=== PATIENT | female | born 1965 | race Caucasian/White ===

== ENCOUNTER → 2019-09-04 00:01 | Outpatient (RCR) | payer BC, SELFPAY | LOC: ONCMED 08-06 06:18 | PROVIDERS: Family Provider Family Medicine; Visit Provider Internal Medicine Medical Oncology | DX: Z51.12 Encounter for antineoplastic immunotherapy (principal); Z51.11 Encounter for antineoplastic chemotherapy; C50.812 Malignant neoplasm of overlapping sites of left female breast; D70.1 Agranulocytosis secondary to cancer chemotherapy; T45.1X5A Adverse effect of antineoplastic and immunosuppressive drugs, initial encounter; I10 Essential (primary) hypertension; E11.42 Type 2 diabetes mellitus with diabetic polyneuropathy; K21.9 Gastro-esophageal reflux disease without esophagitis; E03.9 Hypothyroidism, unspecified; Z79.891 Long term (current) use of opiate analgesic; Z79.4 Long term (current) use of insulin; Z87.891 Personal history of nicotine dependence | CPT/HCPCS: 36415; 36591; 80053 ×2; 85007; 85025 ×5; 96360 ×5; 96367 ×2; 96372 ×2; 96413 ×2; 96417 ×2; 99214 ×2; J1100 ×2; J1453 ×2; J1642 ×9; J1815; J2469 ×2; J2505; J3490 ×2; J7040 ×2; J7050 ×9; J9045 ×2; J9171 ×2; J9306 ×2; J9355 ×2 ==

== ENCOUNTER 2019-10-05 05:45 | Outpatient (RCR) | payer BC, SELFPAY ==
[2019-09-06] MEDS: sodium chloride 0.9% 1,000 ML 999 ML IV (09:02)
[2019-09-07] MEDS: sodium chloride 0.9% 1,000 ML 999 ML IV (09:09)
[2019-09-10] MEDS: sodium chloride 0.9% 1,000 ML 999 ML IV (08:30)
[2019-09-10 08:48] LABS: Basophils # 0.1 10^3/uL (0.0-0.1); Basophils % 2.8 %; Eosinophils % 0.5 %; Hematocrit 36.5 % (37.0-47.0); Hemoglobin 12.2 g/dL (11.5-15.3); Lymphocytes % 47.6 %; Mean Corpuscular HGB Conc 33.4 g/dL (30.0-36.0); Mean Corpuscular Hemoglobin 35.2 pg (28.0-34.0); Mean Corpuscular Volume 105.2 fL (81-99); Mean Platelet Volume 10.8 fL (7.4-10.4); Monocytes # 0.1 10^3/uL (0.2-0.9); Monocytes % 2.4 %; Neutrophils # 0.9 10^3/uL (1.8-7.7); Nucleated Red Blood Cells % 0 %; Platelet Count 214 10^3/cmm (130-400); Red Blood Count 3.47 10^6/uL (4.1-5.3); Red Cell Distribution Width 15.8 % (12.1-15.1); White Blood Count 2.1 10^3/uL (4.0-10.0)
[2019-09-10 09:07] LABS: Alanine Aminotransferase 44 U/L (0-33); Albumin Level 4.5 g/dL (3.5-5.2); Alkaline Phosphatase 103 IU/L (35-105); Anion Gap 18.2 (5-19); Aspartate Amino Transferase 29 U/L (0-32); Blood Urea Nitrogen 12 mg/dL (6-20); Calcium 9.5 mg/Dl (8.6-10.0); Carbon Dioxide 22 mmol/L (22-29); Chloride 97 mmol/L (98-107); Globulin 1.4 g/dL (1.3-4.6); Glomerular Filtration Rate 127.6 mL/min (90-130); Glucose 255 mg/dL (74-109); Potassium 4.2 mmol/L (3.5-5.1); Sodium 133 mmol/L (136-145); Total Bilirubin 0.6 mg/dL (0.15-1.2); Total Protein 5.9 g/dL (6.6-8.7)
[2019-09-10 11:13] LABS: Thyroid Stimulating Hormone 3.19 uIU/mL (0.27-4.20); Vitamin B12 699 pg/mL (232-1245)
[2019-09-12 11:51] LABS: Basophils % 0.8 %; Hematocrit 33.5 % (37.0-47.0); Hemoglobin 11.2 g/dL (11.5-15.3); Lymphocytes # 1.6 10^3/uL (0.8-4.8); Lymphocytes % 65.1 %; Mean Corpuscular HGB Conc 33.4 g/dL (30.0-36.0); Mean Corpuscular Volume 104.7 fL (81-99); Mean Platelet Volume 10.4 fL (7.4-10.4); Monocytes # 0.7 10^3/uL (0.2-0.9); Neutrophils % 7.1 %; Nucleated Red Blood Cells % 0 %; Platelet Count 183 10^3/cmm (130-400); Red Cell Distribution Width 15.5 % (12.1-15.1); White Blood Count 2.5 10^3/uL (4.0-10.0)
[2019-09-12 12:39] LABS: Neutrophils # 0.2 10^3/uL (1.8-7.7); Slide Review Slide Review Perform
[2019-09-14 08:48] LABS: Basophils # 0.2 10^3/uL (0.0-0.1); Basophils % 0.7 %; Hematocrit 34.8 % (37.0-47.0); Hemoglobin 11.5 g/dL (11.5-15.3); Lymphocytes # 4.3 10^3/uL (0.8-4.8); Lymphocytes % 18.3 %; Mean Corpuscular Hemoglobin 35.3 pg (28.0-34.0); Mean Corpuscular Volume 106.7 fL (81-99); Mean Platelet Volume 10.8 fL (7.4-10.4); Monocytes # 4.3 10^3/uL (0.2-0.9); Monocytes % 18.4 %; Neutrophils # 12.5 10^3/uL (1.8-7.7); Neutrophils % 53.1 %; Nucleated Red Blood Cells # 0.2 /100WBC; Nucleated Red Blood Cells % 0.7 %; Platelet Count 209 10^3/cmm (130-400); Red Blood Count 3.26 10^6/uL (4.1-5.3); Red Cell Distribution Width 16.9 % (12.1-15.1); White Blood Count 23.6 10^3/uL (4.0-10.0)
[2019-09-14 10:03] LABS: Band Neutrophils Absolute 8.3 10^3/cmm (0.0-1.2); Lymphocytes 21 %; Monocytes Absolute 4.7 10^3/cmm (0.1-0.6); Platelet Estimate Normal (Normal); Segmented Neutrophils 17 %; Slide Review Slide Review Perform
[2019-09-14 10:06] LABS: Total Cells Counted 100 (0-100)
[2019-09-18 08:35] LABS: Basophils % 0.4 %; Hematocrit 35.6 % (37.0-47.0); Hemoglobin 11.8 g/dL (11.5-15.3); Lymphocytes # 1.7 10^3/uL (0.8-4.8); Lymphocytes % 20.2 %; Mean Corpuscular HGB Conc 33.1 g/dL (30.0-36.0); Mean Corpuscular Hemoglobin 33.8 pg (28.0-34.0); Monocytes # 0.6 10^3/uL (0.2-0.9); Monocytes % 6.8 %; Neutrophils # 5.7 10^3/uL (1.8-7.7); Neutrophils % 67.5 %; Nucleated Red Blood Cells % 0.2 %; Platelet Count 158 10^3/cmm (130-400); Red Blood Count 3.49 10^6/uL (4.1-5.3); Red Cell Distribution Width 15.9 % (12.1-15.1); White Blood Count 8.4 10^3/uL (4.0-10.0)
[2019-09-18 08:47] LABS: Homocysteine 8.72
[2019-09-18 09:03] LABS: Vitamin B12 1533 pg/mL (232-1245)
[2019-09-18 09:18] LABS: Folate Level 4.9 ng/mL (4.8-37.3)
[2019-09-18 09:22] LABS: Slide Review Slide Review Perform
[2019-09-24 08:32] LABS: Hematocrit 35.7 % (37.0-47.0); Hemoglobin 11.6 g/dL (11.5-15.3); Lymphocytes # 0.6 10^3/uL (0.8-4.8); Lymphocytes % 9.8 %; Mean Corpuscular HGB Conc 32.5 g/dL (30.0-36.0); Mean Corpuscular Hemoglobin 35.2 pg (28.0-34.0); Mean Corpuscular Volume 108.2 fL (81-99); Mean Platelet Volume 10.3 fL (7.4-10.4); Monocytes # 0.1 10^3/uL (0.2-0.9); Neutrophils # 5.2 10^3/uL (1.8-7.7); Neutrophils % 87.5 %; Nucleated Red Blood Cells % 0 %; Platelet Count 207 10^3/cmm (130-400); Red Cell Distribution Width 15.6 % (12.1-15.1); White Blood Count 5.9 10^3/uL (4.0-10.0)
[2019-09-24 09:09] LABS: Alanine Aminotransferase 26 U/L (0-33); Albumin Level 3.4 g/dL (3.5-5.2); Alkaline Phosphatase 102 IU/L (35-105); Anion Gap 23.4 (5-19); Aspartate Amino Transferase 26 U/L (0-32); Blood Urea Nitrogen 14 mg/dL (6-20); Calcium 9.3 mg/Dl (8.6-10.0); Carbon Dioxide 20 mmol/L (22-29); Chloride 99 mmol/L (98-107); Globulin 2.9 g/dL (1.3-4.6); Glomerular Filtration Rate 86.6 mL/min (90-130); Glucose 426 mg/dL (74-109); Potassium 4.4 mmol/L (3.5-5.1); Sodium 138 mmol/L (136-145); Total Bilirubin 0.3 mg/dL (0.15-1.2); Total Protein 6.3 g/dL (6.6-8.7); Vitamin B12 1242 pg/mL (232-1245)
[2019-09-24 09:22] LABS: Homocysteine 5.07
[2019-09-24] MEDS: sodium chloride 0.9% 250 ML 75 ML IV (10:45)
[2019-09-24] MEDS: acetaminophen 325 mg Tablet 650 MG PO (12:44)
[2019-09-24] MEDS: sodium chloride 0.9% 100 ML 25 ML (14:30)
[2019-09-27] MEDS: sodium chloride 0.9% 1,000 ML 999 ML IV (13:00)
[2019-09-28 15:36] LABS: Methylmalonic Acid 179 nmol/L (87-318)
--- NOTE | 2019-09-28 19:07 | ONC FU_ITS ---
Dr. Cuellar Patient Follow-Up Note Patient: Shila Sheppard Unit #: [id number]: 1965 Dicatated By: Preston Cuellar M.D.Date of Visit:Sep 24, 2019 Onc Med Follow-up/Prog Note Chief Complaint: Breast cancer. History of Present Illness: This is a 54 year-old woman with grade 3 infiltrating ductal carcinoma of the left breast, ER/UT positive and HER-2/kelsie positive. By clinical and pathologic evaluation and with ER/UT and HER-2/kelsie positive disease, she is stage IB (T2, N1, M0). She had presented with a palpable mass in the left breast, first noticed a month to a month and a half ago. Bilateral diagnostic mammogram with limited ultrasound of the left breast on 04/17/2019 was BI-RADS category 5, highly suspicious of malignancy. Findings included an irregular marginated spiculated soft tissue mass in the posterior inferior left breast at the 6 o'clock position measuring 3.3 x 2.8 cm. The underlying skin appeared retracted and thickened. There are no abnormalities noted in the right breast. Ultrasound-guided biopsy of the left breast mass on 05/08/2019 showed grade 2 infiltrating ductal carcinoma. The best prognostic profile showed ER positive at 87% and UT positive at 41%. The tumor was positive for overexpression of HER-2/kelsie, 3+ by IHC and amplification ratio by FISH of 3.8 with 13.3 HER-2 copies/cell. The Ki-67 was unfavorable at 24%. I had seen her initially on 05/18/2019. She was recommended to undergo neoadjuvant chemotherapy with TCH-P. Her baseline echocardiogram showed normal LV function with estimated ejection fraction 65%. Staging PET/CT also was recommended but delayed because of insurance issues. Her other medical illnesses include hypertension, type II diabetes with peripheral neuropathy, GERD, and hypothyroidism. She has a history of emphysematous pyelonephritis. Her surgical history includes vaginal hysterectomy with unilateral oophorectomy in 2008. She does not recall ever having hot flashes or other indications of menopause. She has a history of smoking 1/2 pack of cigarettes daily for 30 years. INTERIM HISTORY: She began cycle 1 of TCH-P on 06/11/2019. She was given first cycle prophylaxis with Neulasta. Her treatment was complicated by severe headache and dizziness for several days and subsequently by nausea/vomiting and diarrhea. On day 3 she passed out at home, sustaining a fracture to the proximal right humerus. At day 6 she was admitted to the hospital because of intractable nausea and diarrhea. The maximum diarrhea was estimated at 6 stools per day. She also developed sore mouth, which lasted for about a week. She was very weak generally and had poor appetite for the first 2 weeks. During the last week of the cycle she had started to feel a lot better, but she then fell again when she stepped in a hole and she sustained a fracture to her proximal left humerus. Both fractures have been managed conservatively. She then proceeded with cycle 2 of her chemotherapy on 07/02/2019. With that cycle she was given scheduled hydration, but her dosages remain the same. She was able to tolerate it with acceptable toxicity. She then continued with cycle 3 on 07/23/2019, with cycle 4 on 08/13/2019, and with cycle 5 on 09/03/2019. The 5th cycle was administered without Neulasta. She was given daily hydration during the first week of the cycle. At day 8 she was neutropenic, but she recovered uneventfully with Neupogen. Overall, with the added hydration she tolerated the treatment pretty well. She is seen for a scheduled visit. She is feeling pretty good generally. She still has significant fatigue, particularly during the first week of the cycle, but she has been able to continue working, at least part-time. Her appetite is pretty good, though her taste is altered. She has not had fever. She does have hot flashes and sweating. She had diarrhea for several days during the second week of the cycle, but that was managed adequately with medication. She has had just occasional episodes of lightheadedness. She has some shortness of breath with activity. She had cough last week, that has resolved. She has not been having chest pain. She has neuropathy in her feet, but it has not been getting any worse. Medications: DULoxetine HCl 1 Capsule (of 60 mg) Capsule Delayed Release Particles Oral daily, DULoxetine HCl 1 Capsule (of 30 mg) Capsule Delayed Release Particles Oral daily, Levemir 40 Units (of 100 Units/mL) Subcutaneous b.i.d., Levo-T 1 Tablet (of .5 mcg) Oral daily, Losartan Potassium 1 Tablet (of 25 mg) Oral daily, Marinol 1 Capsule (of 2.5 mg) Oral b.i.d. PRN, NovoLOG 15 Units (of 100 Units/mL) Subcutaneous t.i.d., oxyCODONE HCl 1 Tablet (of 10 mg) Oral four times a day PRN, Polytrim 1 Drop(s) (of 09832-3.1 Units/mL - %) Solution Ophthalmic q 3 hours PRN, Protonix 1 Tablet (of 20 mg) Tablet, enteric coated Oral daily, traMADol HCl 1 - 2 tablespoonful(s) (of 50 mg) Tablet Oral q 6 hours PRN Allergies: NORBERTO Inhibitors, NSAIDs, and Ozempic. Review of Systems: Constitutional - Her energy is still down during the first week after treatment, but not as bad with daily IV hydration. 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 Her appetite is pretty good. She has lost taste. No fever or chills. She has hot flashes and night sweats. ECOG score is 1, Eyes - Her eyes are draining and her vision is blurry, ENMT - She has constant sinus drainage. No mouth sores. No sore throat or difficulty swallowing, Hematologic/Lymphatic - She bruises easily, Respiratory - She has shortness of breath with activity. She had cough last week. No pleuritic pain or hemoptysis, Cardiovascular - No angina pain. No palpitations, Gastrointestinal - She has had some nausea. No vomiting. Her acid reflux is better. She has had some diarrhea during week 2. No blood in the stool or black stools, Genitourinary (F) - She complains that her urine is dark, but she has no dysuria or hematuria. No urinary frequency. No urgency or incontinence, Musculoskeletal - She has only mild shoulder pain now. She has no other joint or bone pain, Integumentary - No skin complications, Neurologic - No headaches. She has some lightheadedness. She has numbness and tingling in her feet, Psychiatric - No anxiety or depression. No insomnia. Vital Signs: Performed on Sep 24, 2019 10:05 Height - 71.50 in Weight - 238.6 lbs (HIGH) BSA - 2.28 sq.m BMI - 32.81 (HIGH) Temperature - 97.1 F (LOW) Pulse - 123 /min (HIGH) Respiration - 22 /min Systolic - mm(hg) O2 Sat - 96 % Pain - 5 Physical Examination: Constitutional - She looks pretty good generally, Eyes - Sclerae nonicteric. Conjunctivae clear, ENMT - No lesions noted in the oral cavity, Hematologic/Lymphatic - No cervical or clavicular adenopathy, Respiratory - Lungs are clear with good air movement bilaterally, Cardiovascular - Heart rhythm is regular. She has a mild tachycardia. There is a I/ systolic murmur. There is no gallop or rub noted, Breasts - There is only a very small residual nodule in the inferior left breast. There is no axillary adenopathy, Abdomen - Soft. Liver and spleen are not enlarged. There is no abdominal mass or ascites noted and there is no inguinal adenopathy, Extremities - Slight edema, Neurologic - No focal neurologic deficits noted. Lab/Imaging: Test performed on Sep 24, 2019 10:29 Creatinine 0.7 mg/dL Cr Clearance (Est) 150.88 mL/min Test performed on Sep 24, 2019 09:27 WBC 5.9 10^9/L RBC 3.30 10^12/L HGB 11.6 g/dL HCT 35.7 % MCV 108.2 fl MCH 35.2 pg MCHC 32.5 g/dL RDW 15.6 % Platelet Count 207 10^9/L MPV 10.3 fL Neutrophils (Gran) 5.2 10^9/L Lymphocytes 0.6 10^9/L Monocytes 0.1 10^9/L Eosinophils 0 10^9/L Basophils 0 10^9/L Manual Lymphocytes 9.8 % Manual Monocytes 2.0 % Manual Eosinophils 0 % Manual Basophils 0 % Test performed on Sep 24, 2019 08:17 Folate 11.0 ng/mL Homocysteine 5.07 umol/L Vitamin B12 1242 pg/mL Glucose 426 mg/dL BUN 14 mg/dL Sodium 138 mmol/L Potassium 4.4 mmol/L Chloride 99 mmol/L CO2 20 mmol/L Calcium 9.3 mg/dL Protein, Total 6.3 g/dL Albumin 3.4 g/dL Globulin 2.9 g/dL Bilirubin, Total 0.3 mg/dL Alkaline Phosphatase 102 IU/L AST (SGOT) 26 IU/L ALT (SGPT) 26 IU/L Impression: 1. Patient with grade 2 infiltrating ductal carcinoma of the left breast, Stage IB (T2, N1, M0), ER/UT positive and HER-2/kelsie positive. Staging PET/CT was requested but delayed because of insurance issues. 2. She underwent ultrasound-guided needle biopsy of left breast mass on 05/08/2019, and she underwent ultrasound-guided needle biopsy of left axillary lymph node on 05/22/2019. Her other medical illnesses include: 3. Hypertension. 4. Type II diabetes. 5. Peripheral neuropathy. 6. GERD. 7. Hypothyroidism. 8. History of emphysematous pyelonephritis. She began cycle 1 of neoadjuvant TCH-P on 06/11/2019. Her treatment was complicated by headache and dizziness, nausea/vomiting, diarrhea, and stomatitis. She sustained a fracture to the right proximal humerus when she passed out at home on day 3. She required hospitalization for IV hydration at day 6. Her symptoms subsequently improved, but she then sustanined a fracture to the proximal left humerus when she stepped in a hole and fell. Both fractures have been managed conservatively. She was able to continue with cycle 2 of her chemotherapy on 07/02/2019, with cycle 3 on 07/23/2019, with cycle 4 on 08/13/2019, and with cycle 5 on 09/03/2019. She has been able to tolerate the chemotherapy better with scheduled IV hydration daily for the duration of the first week of the cycle. She has continued, though, to have significant weakness/fatigue and some lightheadedness. She also has been having shortness of breath with activity, and she continues to have some diarrhea. Her neuropathy, though, has been stable, and overall she has been able to tolerate the chemotherapy with acceptable toxicity. Plan: She will proceed with her 6th and final cycle of TCH-P. The dosages will remain the same. She will be given IV hydration daily for the duration of this week and then as needed. She will be scheduled for a follow-up visit in 3 weeks. In the meantime, as she has had occupational exposure to a documented influenza patient, she will be given prophylaxis with oseltamivir. She also will be making arrangements for scheduling her bilateral mastectomy. Signed By: Preston Cuellar M.D. <<Signature on File>>
[2019-10-01 10:31] LABS: Hemoglobin 10.2 g/dL (11.5-15.3); Lymphocytes # 0.4 10^3/uL (0.8-4.8); Lymphocytes % 59.1 %; Mean Corpuscular Hemoglobin 34.5 pg (28.0-34.0); Mean Corpuscular Volume 101.4 fL (81-99); Mean Platelet Volume 10.9 fL (7.4-10.4); Monocytes # 0.2 10^3/uL (0.2-0.9); Monocytes % 30.3 %; Neutrophils % 9.1 %; Nucleated Red Blood Cells % 0 %; Platelet Count 179 10^3/cmm (130-400); Red Blood Count 2.96 10^6/uL (4.1-5.3); Red Cell Distribution Width 14.6 % (12.1-15.1)
[2019-10-01 10:59] LABS: Neutrophils # 0.1 10^3/uL (1.8-7.7); Slide Review Slide Review Perform; White Blood Count 0.7 10^3/uL (4.0-10.0)
[2019-10-03 11:57] LABS: Basophils % 0.4 %; Eosinophils % 0.2 %; Hematocrit 31.7 % (37.0-47.0); Hemoglobin 10.6 g/dL (11.5-15.3); Lymphocytes # 2.2 10^3/uL (0.8-4.8); Mean Corpuscular HGB Conc 33.4 g/dL (30.0-36.0); Mean Corpuscular Hemoglobin 35.2 pg (28.0-34.0); Mean Corpuscular Volume 105.3 fL (81-99); Monocytes # 1.6 10^3/uL (0.2-0.9); Monocytes % 29.6 %; Neutrophils # 1.4 10^3/uL (1.8-7.7); Neutrophils % 26.3 %; Nucleated Red Blood Cells % 0 %; Platelet Count 263 10^3/cmm (130-400); Red Blood Count 3.01 10^6/uL (4.1-5.3); Red Cell Distribution Width 14.6 % (12.1-15.1); White Blood Count 5.3 10^3/uL (4.0-10.0)
[2019-10-03 12:26] LABS: Slide Review Slide Review Perform
[2019-10-05 08:41] LABS: Basophils # 0.2 10^3/uL (0.0-0.1); Basophils % 0.6 %; Hematocrit 31.9 % (37.0-47.0); Hemoglobin 10.7 g/dL (11.5-15.3); Lymphocytes # 4.6 10^3/uL (0.8-4.8); Lymphocytes % 14.9 %; Mean Corpuscular HGB Conc 33.5 g/dL (30.0-36.0); Mean Corpuscular Volume 101.3 fL (81-99); Mean Platelet Volume 10.6 fL (7.4-10.4); Monocytes # 2.3 10^3/uL (0.2-0.9); Monocytes % 7.4 %; Neutrophils # 19.3 10^3/uL (1.8-7.7); Neutrophils % 62.5 %; Nucleated Red Blood Cells # 0.1 /100WBC; Nucleated Red Blood Cells % 0.2 %; Platelet Count 333 10^3/cmm (130-400); Red Blood Count 3.15 10^6/uL (4.1-5.3); Red Cell Distribution Width 14.8 % (12.1-15.1)
[2019-10-05 09:13] LABS: Slide Review Slide Review Perform; White Blood Count 30.8 10^3/uL (4.0-10.0)
[2019-10-05 09:15] LABS: Absolute Segmented Neutrophil 11.3 10/cmm (1.6-7.1); Band Neutrophils Absolute 11.1 10^3/cmm (0.0-1.2); Lymphocytes 12 %; Monocytes Absolute 4.3 10^3/cmm (0.1-0.6); Platelet Estimate Normal (Normal); Segmented Neutrophils 37 %; Total Cells Counted 100 (0-100)
== END 2019-10-05 23:59 | disposition home or self-care (01) ==
LOC: ONCMED 05:45
PROVIDERS: Nurse Practitioner; Family Provider Family Medicine; PCP Family Medicine; Visit Provider Internal Medicine Medical Oncology
DX: Z51.12 Encounter for antineoplastic immunotherapy (principal); Z51.11 Encounter for antineoplastic chemotherapy; C50.812 Malignant neoplasm of overlapping sites of left female breast; D70.1 Agranulocytosis secondary to cancer chemotherapy; T45.1X5A Adverse effect of antineoplastic and immunosuppressive drugs, initial encounter; E86.0 Dehydration; I10 Essential (primary) hypertension; E11.42 Type 2 diabetes mellitus with diabetic polyneuropathy; K21.9 Gastro-esophageal reflux disease without esophagitis; E03.9 Hypothyroidism, unspecified; F17.210 Nicotine dependence, cigarettes, uncomplicated; Z17.0 Estrogen receptor positive status [ER+]; Z79.4 Long term (current) use of insulin
CPT/HCPCS: 36415; 36591; 80053; 82607; 82746; 83090; 83921; 84145; 84443; 85007; 85025; 96360; 96367; 96372; 96413; 96417; 99214; J1100; J1200; J1442; J1453; J2469; J3490; J7030; J7040; J7050; J9045; J9171; J9306; J9355

== ENCOUNTER 2019-10-07 20:39 | Inpatient (IN) | payer BC, SELFPAY ==
[2019-10-07 20:44] VITALS: BP 180/91; PULSE 111; RESP 18; TEMP 36.7; O2SAT 96; BMI 30.7
--- NOTE | 2019-10-07 20:48 | ED_ITS ---
Entered by Doris Valera, acting as scribe for HPI - General Adult General: Chief complaint: General Medical Stated complaint: not ate/drank in 48 hrs Time Seen by Provider: 10/07/19 20:52 Source: patient and family Mode of arrival: ambulatory History of Present Illness: HPI narrative: 54 y/o female presents to the ED with complaint of difficulty eating and drinking. Pt has breast cancer currently and states she has not felt well for the past few days. She has had diarrhea since her last chemo treatment 09/24/19. She has had dizziness. Pt saw her PCP last week and suspected she had the flu since there have been several other cases in the [place], where she currently lives. Pt reports chills and cough. She is scheduled for her mastectomy this coming week, if she is well enough. MD complaint: Unable to eat/drink Onset (ago): day(s) Location: abdomen Severity: moderate Relieving factors: none Associated symptoms: Reports cough, decreased appetite, fevers/chills, weakness and other (left ear pain); Deny chest pain, confusion, dyspnea, headache(s), rash, palpitations or vomiting Review of Systems Const: Reports: chills, body aches, change in appetite and fatigue Eyes: Denies: change in vision or blurry vision ENMT: Reports: ear pain, Change in hearing and facial/sinus pain; Denies: painful swallowing, swelling of lips/tongue, bleeding gums, dental pain, nose bleeds or post nasal drip Card: Reports: lightheadedness; Denies: chest pain, palpitations, irregular heart rhythm, edema, swelling of feet/ankles, shortness of breath on exertion or shortness of breath when lying down Resp: Reports: non-productive cough; Denies: shortness of breath or wheezing GI: Reports: abdominal pain and diarrhea; Denies: vomiting, rectal pain, blood in stool or black tarry stool : Denies: painful urination, urinary frequency, urinary urgency or blood in urine Skin/Breast: Denies: rash, itching or redness Neuro: Reports: dizziness; Denies: headache, vertigo, confusion or seizure-like activity Psych: Denies: anxiety PFSH ED PFSH: Statuses (acute, chronic, etc) shown below reflect problem list status as previously entered and may not be historically accurate Medical History (Updated 10/07/19 @ 23:42 by Victorino Jefrfies MD) Chronic diarrhea (Acute) Emphysematous pyelonephritis (Acute) GERD (gastroesophageal reflux disease) (Acute) Hypertension (Acute) Hypothyroidism (Acute) Infiltrating ductal carcinoma (Acute) Influenza (Acute) Mouth ulcers (Acute) Peripheral neuropathy (Acute) Smoker (Acute) Type 2 diabetes mellitus (Acute) Surgical History (Updated 10/07/19 @ 23:42 by Victorino Jeffries MD) H/O unilateral oophorectomy (Acute) H/O vaginal hysterectomy (Acute) Social History Smoking and tobacco status: current every day smoker Physical Exam Const: GENERAL APPEARANCE: well developed ORIENTATION/CONSCIOUSNESS: Yes oriented to person, Yes oriented to place and Yes oriented to time HENMT: COMMON NORMALS: normocephalic and external nose normal HEAD & SCALP: normocephalic; no scalp tenderness FACE & SINUS: normal facial exam NOSE: external nose normal and no nasal discharge TYMPANIC MEMBRANE: TM abnormal TM laterality: left Details: dull and retracted MOUTH: tongue normal TEETH & GINGIVA: no abnormal tooth and associated gingiva THROAT: posterior oropharynx abnormal erythema; no peritonsillar mass Eye: COMMON NORMALS: PERRL, EOMs intact bilaterally and conjunctivae normal EYELID: eyelids normal CONJUNCTIVA: Yes conjunctivae normal PUPIL: Yes PERRL Neck/C-Spine: COMMON NORMALS: full ROM GENERAL: No tracheal deviation Chest: COMMONS NORMALS: inspection of chest normal CHEST: No tenderness Resp: COMMON NORMALS: clear to auscultation bilaterally EFFORT & INSPECTION: No tachypneic, No respiratory distress, No retractions, No uses accessory muscles and No tracheal deviation AUSCULTATION: clear to ausc ultation bilaterally, no rhonchi, no wheezes and lung sounds not diminished Cardio: COMMON NORMALS: regular rate and regular rhythm RATE: regular rate RHYTHM: regular rhythm HEART SOUNDS: no murmurs PERIPHERAL PULSES: radial pulses present GI: COMMON NORMALS: soft to palpation INSPECTION: Yes abdominal distension AUSCULTATION: No hyperactive bowel sounds and No hypoactive bowel sounds PALPATION: Yes soft, Yes tender (diffuse), Yes guarding and No rigid PERCUSSION: no dullness to percussion and no tympanic to percussion Neuro: SENSORIUM/ORIENTATION: Yes oriented to person, Yes oriented to place and Yes oriented to time Psych: COMMON NORMALS: mental status grossly normal Skin: COMMON NORMALS: no rashes or lesions noted GENERAL SKIN EXAM: no rashes or lesions noted Course ED course: This is a 54-year-old female breast cancer patient undergoing chemotherapy. She presents with aches, inability to take oral fluids or solids, and persistent diarrhea for the past few days. Her white blood cell count is 16.7 down from 30. However, her potassium is 2.8. On CT she has diffuse enterocolitis. This is concerning given her recent antibiotic use for C. di fficile colitis. She was given fluids with potassium here. Started IV Flagyl. She will be admitted. Vital Signs: Vital signs: Vital Signs Temperature 98.7 F 10/08/19 00:30 Pulse Rate 99 10/08/19 00:30 Respiratory Rate 20 H 10/08/19 00:30 Blood Pressure 172/69 10/08/19 00:30 Pulse Oximetry 95 10/08/19 00:30 [facility] - General Adult Lab Data: Labs: Lab Results 10/07/19 10/07/19 10/07/19 Range/Units 21:20 21:20 21:20 WBC 16.7 H (4.0-10.0) 10^3/ uL RBC 3.47 L (4.1-5.3) 10^6/u L Hgb 11.7 (11.5-15.3) g/dL Hct 35.1 L (37.0-47.0) % MCV 101.2 H (81-99) fL MCH 33.7 (28.0-34.0) pg MCHC 33.3 (30.0-36.0) g/dL RDW 14.7 (12.1-15.1) % Plt Count 312 (130-400) 10^3/c mm MPV 10.3 (7.4-10.4) fL Neut % (Auto) 61.9 % Lymph % (Auto) 20.3 % Hopkins % (Auto) 5.9 % Eos % (Auto) 0.0 % Baso % (Auto) 0.5 % Neut # (Auto) 10.4 H (1.8-7.7) 10^3/u L Lymph # (Auto) 3.4 (0.8-4.8) 10^3/u L Hopkins # (Auto) 1.0 H (0.2-0.9) 10^3/u L Eos # (Auto) 0.0 (0.0-0.8) 10^3/u L Baso # (Auto) 0.1 (0.0-0.1) 10^3/u L Nucleated RBC % (a uto) 0 % Total Counted 100 (0-100) Segmented Neutroph ils 70 % Band Neutrophils 4.0 % Lymphocytes (Manua l) 20 % Monocytes (Manual) 2.0 % Absolute Monocytes 0.3 (0.1-0.6) 10^3/c mm Metamyelocytes 4.0 % Nucleated RBCs # 0.0 /100WBC Platelet Estimate Increased H (Normal) Sodium 136 (136-145) mmol/L Potassium 2.8 L* (3.5-5.1) mmol/L Chloride 96 L (98-107) mmol/L Carbon Dioxide 24 (22-29) mmol/L Anion Gap 18.8 (5-19) BUN 9 (6-20) mg/dL Creatinine 0.7 (0.5-0.9) mg/dL GFR Calculation 86.6 L (90-130) mL/min Glucose 412 H (74-109) mg/dL Lactate 4.7 H* (0.5-2.2) mmol/L Calcium 9.1 (8.5-10.5) mg/dL Total Bilirubin 0.2 (0.15-1.2) mg/dL AST 29 (0-32) U/L ALT 32 (0-33) U/L Alkaline Phosphata se 139 H (35-105) IU/L Creatine Kinase 23 L (26-192) U/L C-Reactive Protein 7.0 H (0.0-4.9) mg/L Total Protein 7.0 (6.6-8.7) g/dL Albumin 3.5 (3.5-5.2) g/dL Globulin 3.5 (1.3-4.6) g/dL Discharge Plan Discharge Patient Disposition: Admitted As Inpatient Admit Provider: Victorino Jeffries Discharge Date/Time: 10/08/19 00:33 Coding Level of Care Code ED Pattern Filer for [facility] Fwd The documentation recorded by the [facility], accurately reflects the service I personally performed and the decisions made by , Gunnar Carballo DO Oct 07, 2019 20:39
--- NOTE | 2019-10-07 21:11 | CTR_ITS ---
PROCEDURE INFORMATION: Exam: CT Abdomen And Pelvis With Contrast Exam date and time: 10/07/2019 9:28 PM Age: 54 years old Clinical indication: Abdominal pain; Generalized; Prior surgery; Surgery date: 6+ months; Surgery type: Hyst; Additional info: Abd pain TECHNIQUE: Imaging protocol: Computed tomography of the abdomen and pelvis with intravenous contrast. Total DLP: 1882.7 mGy-cm Radiation optimization: All CT scans at this facility use at least one of these dose optimization techniques: automated exposure control; mA and/or kV adjustment per patient size (includes targeted exams where dose is matched to clinical indication); or iterative reconstruction. Contrast material: OMNI 300; Contrast volume: 95 ml; Contrast route: IV; COMPARISON: CT Abdomen/Pelvis w IV* [id number] 02/26/2017 6:20 PM FINDINGS: Liver: Normal. No mass. Gallbladder and bile ducts: Cholecystectomy. The bile ducts are normal. Pancreas: Normal. No ductal dilation. Spleen: Normal. No splenomegaly. Adrenals: Stable bilateral adrenal hyperplasia. Kidneys and ureters: 3.6 cm smaller probable proteinaceous cyst in the anterior left kidney, Hounsfield units 45. Numerous small cysts in both kidneys. Old cortical defects in the left kidney. Stomach and bowel: Air-fluid levels are scattered throughout the colon. There is mild wall thickening suspected within the sigmoid colon, without fat stranding. Mild fluid distention of the stomach. Scattered small air-fluid levels throughout the small bowel measuring up to 3.5 cm. Appendix: No evidence of appendicitis. Intraperitoneal space: Unremarkable. No free air. No significant fluid collection. Vasculature: Unremarkable. No abdominal aortic aneurysm. Lymph nodes: Unremarkable. No enlarged lymph nodes. Bladder: Unremarkable as visualized. Reproductive: Unremarkable as visualized. Bones/joints: Mild degenerative changes of the lumbar spine. Soft tissues: Unremarkable. CT/CT abdomen pelvis w con* [id number] IMPRESSION: 1. Diffuse enterocolitis with fluid-filled colon. 2. Probable 3.6 cm proteinaceous cyst in the left kidney. Confirmation with ultrasound follow-up is recommended. 3. Stable adrenal hyperplasia. Radiation Dose CTDIVOL = (mGy): DLP = 1882.7 (mGy-cm)
--- NOTE | 2019-10-07 21:11 | XR_ITS ---
WS: [id number] CHEST XRAY TECHNIQUE: Portable chest. CLINICAL INFORMATION: poss sepsis COMPARISON: None. FINDINGS: Right Port-A-Cath with tip in the right atrium. Heart: Normal cardiac silhouette. Lungs: Lungs are clear. No consolidation or pleural effusion. Bones: Normal visualized bony structures. XR/XR chest 1V portable [id number] IMPRESSION: 1. Right Port-A-Cath with tip in the right atrium. 2. No acute chest findings.
[2019-10-07] MEDS: sodium chloride 0.9% 1,000 ML 999 ML IV (21:25)
[2019-10-07] MEDS: ondansetron 2 mg/ML SDV 2 mL 4 MG IVP (21:27)
[2019-10-07 21:29] VITALS: RESP 18; O2SAT 96
[2019-10-07] MEDS: iohexol 300 mg/mL 100 mL Btl IV (21:29)
[2019-10-07] MEDS: morphine 4 mg/mL SDV 1 mL IVP (21:29)
[2019-10-07 21:30] LABS: Basophils # 0.1 10^3/uL (0.0-0.1); Basophils % 0.5 %; Hematocrit 35.1 % (37.0-47.0); Hemoglobin 11.7 g/dL (11.5-15.3); Lymphocytes # 3.4 10^3/uL (0.8-4.8); Lymphocytes % 20.3 %; Mean Corpuscular HGB Conc 33.3 g/dL (30.0-36.0); Mean Corpuscular Hemoglobin 33.7 pg (28.0-34.0); Mean Corpuscular Volume 101.2 fL (81-99); Mean Platelet Volume 10.3 fL (7.4-10.4); Monocytes % 5.9 %; Neutrophils # 10.4 10^3/uL (1.8-7.7); Neutrophils % 61.9 %; Nucleated Red Blood Cells % 0 %; Platelet Count 312 10^3/cmm (130-400); Red Blood Count 3.47 10^6/uL (4.1-5.3); Red Cell Distribution Width 14.7 % (12.1-15.1); White Blood Count 16.7 10^3/uL (4.0-10.0)
[2019-10-07 21:44] LABS: Alanine Aminotransferase 32 U/L (0-33); Albumin Level 3.5 g/dL (3.5-5.2); Alkaline Phosphatase 139 IU/L (35-105); Anion Gap 18.8 (5-19); Aspartate Amino Transferase 29 U/L (0-32); Blood Urea Nitrogen 9 mg/dL (6-20); Calcium 9.1 mg/dL (8.5-10.5); Carbon Dioxide 24 mmol/L (22-29); Chloride 96 mmol/L (98-107); Creatine Phosphokinase 23 U/L (26-192); Globulin 3.5 g/dL (1.3-4.6); Glomerular Filtration Rate 86.6 mL/min (90-130); Glucose 412 mg/dL (74-109); Sodium 136 mmol/L (136-145); Total Bilirubin 0.2 mg/dL (0.15-1.2)
[2019-10-07 21:56] LABS: Lactate (Lactic Acid level) 4.7 mmol/L (0.5-2.2); Potassium 2.8 mmol/L (3.5-5.1)
--- NOTE | 2019-10-07 21:57 | PC.NURSE ---
K+ 2.82, lactic 4.7
[2019-10-07 22:05] LABS: Slide Review Slide Review Perform
[2019-10-07 22:06] LABS: Absolute Segmented Neutrophil 11.6 10/cmm (1.6-7.1); Band Neutrophils Absolute 0.7 10^3/cmm (0.0-1.2); Monocytes Absolute 0.3 10^3/cmm (0.1-0.6); Platelet Estimate Increased (Normal); Segmented Neutrophils 70 %; Total Cells Counted 100 (0-100)
[2019-10-07 22:08] LABS: Lymphocytes 20 %
[2019-10-07] MEDS: sodium chlor 0.9% + KCl 40 mEq 40 MEQ/1,000 ML BAG 1000 MEQ IV (22:37)
[2019-10-07] MEDS: potassium chloride oral liq 20 mEq/15 mL UDC 40 MEQ PO (23:20)
[2019-10-07] MEDS: metroNIDAZOLE IV 500 MG/100 ML PREMIX 100 MG IV (23:20)
--- NOTE | 2019-10-07 23:38 | P.HP_ITS ---
Providers/Chief Complaint Primary Care Provider: Fernando Sheppard MD Chief Complaint: not ate/drank in 48 hrs History of Present Illness Shila Sheppard is a 54 year old female who has history of grade 3 infiltrating ductal carcinoma recently finished final cycle of TCH-p and currently is scheduled for bilateral mastectomy with Dr. Nice, recent influenza positive at [place], otitis media was started on Augmentin, came in with chief complaint of profuse watery diarrhea. Patient is stating that has finished her neoadjuvant chemotherapy, there was a influenza breakout at the long term that is the reason she was treated with Tamiflu. She has been having left-sided ear pain was diagnosed with otitis media was prescribed Augmentin and after that she started having diarrhea. Her diarrhea started on 09/24, she has tried antidiarrheals, but her diarrhea is not improving. She has not noticed any fever, blood in stool, shortness of breath, chest pain but she is feeling very dehydrated and generally very weak. In last 48 hours she has not been able to eat or drink. She has not experienced any worsening of abdominal pain, nausea or vomiting. Diagnostics in ER showed leukocytosis, she is afebrile, high lactic acid, she is dehydrated, CT abdomen shows colitis, she was treated with IV fluids and IV Flagyl and potassium When I examined her patient stated that she is feeling better after IV fluid resuscitation, she has had one episode of diarrhea, C. difficile sample has been sent She was examined with C. difficile contact precautions Review of Systems Const: Reports: chills, body aches, change in appetite and malaise; Denies: fever Eyes: Denies: change in vision ENMT: Reports: ear pain and tinnitus; Denies: ear discharge Card: Denies: chest pain or palpitations Resp: Denies: shortness of breath GI: Reports: abdominal pain, change in bowel habits and mucus in stool; Denies: nausea, vomiting or blood in stool : Denies: flank pain or difficulty urinating Musc: Reports: back pain; Denies: neck pain Skin/Breast: Denies: rash Neuro: Denies: headache Psych: Denies: anxiety Endo: Denies: excessive urination Conrado/Lymph: Denies: easy bruising All/Imm: Denies: hives Medications/Allergies Home Medications Medication Instructions Recorded Confirmed Last Taken Type alprazolam [Xanax] 0.5 mg PO BID PRN 10/07/19 10/07/19 Unknown History duloxetine 30 mg PO DAILY 10/07/19 10/07/19 10/07/19 History duloxetine 60 mg PO DAILY 10/07/19 10/07/19 10/07/19 History fluticasone propionate [Flonase 1 spray INTRANASAL BID 10/07/19 10/07/19 10/07/19 History Allergy Relief] guaifenesin [Mucinex] 600 mg PO BID 10/07/19 10/07/19 10/07/19 History insulin detemir U-100 [Levemir 40 unit SUBCUT BID 10/07/19 10/07/19 Unknown History FlexTouch U-100 Insuln] insulin lispro [Humalog KwikPen 15 unit SUBCUT DAILY 10/07/19 10/07/19 Unknown History Insulin] levothyroxine 50 mcg PO DAILY 10/07/19 10/07/19 10/07/19 History loratadine [Claritin] 10 mg PO DAILY 10/07/19 10/07/19 10/07/19 History losartan 25 mg PO DAILY 10/07/19 10/07/19 10/07/19 History ondansetron HCl [Zofran] 4 mg PO Q6H PRN 10/07/19 10/07/19 Unknown History oxycodone [OxyContin] 10 mg PO Q4H PRN 10/07/19 10/07/19 Unknown History pantoprazole [Protonix] 20 mg PO DAILY 10/07/19 10/07/19 Unknown History prochlorperazine maleate 5 mg PO QID PRN 10/07/19 10/07/19 Unknown History [Compazine] tramadol 50 mg PO Q4H PRN 10/07/19 10/07/19 Unknown History Allergies Allergy/AdvReac Type Severity Reaction Status Date / Time NORBERTO Inhibitors Allergy ALGY-Swell Verified 10/07/19 20:50 Lip/Tongue/Throat NSAIDS (Non-Steroidal Allergy ALGY-Swell Verified 10/07/19 20:50 Anti-Inflamma Lip/Tongue/Throat PFSH Acute PFSH: Statuses (acute, chronic, etc) shown below reflect problem list status as previously entered and may not be historically accurate Medical History (Updated 10/07/19 @ 23:42 by Victorino Jeffries MD) Chronic diarrhea (Acute) Emphysematous pyelonephritis (Acute) GERD (gastroesophageal reflux disease) (Acute) Hypertension (Acute) Hypothyroidism (Acute) Infiltrating ductal carcinoma (Acute) Influenza (Acute) Mouth ulcers (Acute) Peripheral neuropathy (Acute) Smoker (Acute) Type 2 diabetes mellitus (Acute) Surgical History (Updated 10/07/19 @ 23:42 by Victorino Jeffries MD) H/O unilateral oophorectomy (Acute) H/O vaginal hysterectomy (Acute) Social History Smoking and tobacco status: current every day smoker Vitals/I&O/Wt Last Vital Signs Temp 98.0 F 10/07/19 20:44 Pulse 111 H 10/07/19 20:44 Resp 18 10/07/19 21:29 BP 180/91 10/07/19 20:44 Pulse Ox 96 10/07/19 21:29 10/07/19 10/07/19 10/08/19 14:59 22:59 06:59 Intake Total 1000 / 1000 Balance 1000 / 1000 Weight last 48 hrs Weight 99.79 kg Physical Exam Narrative: EXAM NARRATIVE: Patient sitting her bed without any active discomfort She seems dehydrated, saturating well on room air S1-S2, no JVD or signs of heart failure Lungs are clear to auscultation without adventitious sounds Abdomen is soft with mild tenderness on deep palpation in epigastric and hypogastric region, bowel sounds tympanic, hyperactive, Low 70 does not show any signs of edema ischemia gangrene or ulcer EOMI, PERRLA Left left ear tympanic membrane shows pearly appearance, mild tenderness on stretch of auricular cartilage Appropriate mood and affect Breast exam deferred Data : 10/07/19 21:20 10/07/19 21:20 Micro: Microbiology 10/07/19 21:22 Blood Culture - Preliminary Blood SPECIMEN COLLECTED 10/07/19 21:20 Blood Culture - Preliminary Blood SPECIMEN COLLECTED A&P Assessment and plan (1) Colitis: Status: Acute Code(s): K52.9 - Noninfective gastroenteritis and colitis, unspecified (2) Dehydration: Status: Acute Code(s): E86.0 - Dehydration (3) Breast cancer, left: Status: Acute Code(s): C50.912 - Malignant neoplasm of unspecified site of left female breast Additional A&P Information Profuse diarrhea for last 14 days No fever, no blood in stool, it is clear watery diarrhea with mucus, no nausea or vomiting C. difficile has been sent by ER Currently she is on IV metronidazole, CT abdomen is showing signs of colitis With recent use of Augmentin she is high risk for development of C. difficile, if C. difficile is negative my suspicion for CMV colitis will be high which might need colonoscopy for diagnostic purposes No uremia high creatinine or neurological symptoms Sepsis criteria met due to Leukocytosis, high lactic acid, tachycardia, This is secondary to colitis Her leukocytosis could be secondary to recent use of Neupogen when she had neut ropenic episode, lactic acid secondary to dehydration Continue IV antibiotics and fluids Infiltrating ductal carcinoma of breast recently finished neoadjuvant therapy, scheduled for bilateral mastectomy Patient is stating that she will most likely reschedule her surgical appointment Patient is stating that she does well with tramadol and oxycodone No need of bowel regimen Hypothyroidism: Continue levothyroxine 50 mcg DVT prophylaxis: Lovenox Full code Attestations Medical Necessity Statement*: Anticipating her stay in the hospital to cross more than 2 midnights because of profuse diarrhea, colitis and extreme dehydration Time Spent in Patient Care: 40 Coding Level of Care Code Acute Document Image Technician for [facility] Fwd Diagnoses Colitis K52.9 Dehydration E86.0 Breast cancer, left C50.911
[2019-10-07 23:52] VITALS: BP 187/107; PULSE 104; RESP 17; O2SAT 96
[2019-10-08] VITALS (8 sets, daily range): BP systolic 110–174; BP diastolic 60–90; PULSE 89–106; RESP 16–23; TEMP 36.9–37.1; O2SAT 90–97
[2019-10-08 01:13] LABS: Magnesium 1.4 mg/dL (1.7-2.3)
[2019-10-08] MEDS: sodium chlor 0.9% + KCl 40 mEq 40 MEQ/1,000 ML BAG 75 MEQ IV ×2 (01:41→17:57)
[2019-10-08] MEDS: enoxaparin 40 mg/0.4 mL Syringe SUBCUT (01:41)
[2019-10-08] MEDS: TRAMadol 50 mg Tablet PO ×2 (01:52→14:03)
[2019-10-08] MEDS: ondansetron 2 mg/ML SDV 2 mL 4 MG IVP ×2 (03:37→04:33)
[2019-10-08] MEDS: cefTRIAXone 1,000 MG in sodium chloride 0.9% (plus) 50 ML 100 MG IV (04:17)
[2019-10-08 05:27] LABS: Basophils % 0.2 %; Hematocrit 32.7 % (37.0-47.0); Hemoglobin 10.6 g/dL (11.5-15.3); Lymphocytes % 21.8 %; Mean Corpuscular HGB Conc 32.4 g/dL (30.0-36.0); Mean Corpuscular Hemoglobin 34.9 pg (28.0-34.0); Mean Corpuscular Volume 107.6 fL (81-99); Mean Platelet Volume 10.3 fL (7.4-10.4); Monocytes # 1.1 10^3/uL (0.2-0.9); Monocytes % 7.7 %; Neutrophils # 8.3 10^3/uL (1.8-7.7); Neutrophils % 59.9 %; Nucleated Red Blood Cells % 0 %; Platelet Count 279 10^3/cmm (130-400); Positive C 1; Positive M 1; Red Blood Count 3.04 10^6/uL (4.1-5.3); White Blood Count 13.9 10^3/uL (4.0-10.0)
[2019-10-08 05:29] LABS: Add Urine Culture? No; Add Urine Microscopic? YES; Bacteria Urine 1+; Bilirubin Urine Neg (NEGATIVE); Blood Urine 2+ (Negative); Glucose Urine UA 4+ (Normal); Ketones Urine Negative (Negative); Leukocyte Esterase Urine Negative (Negative); Nitrate Urine Negative (Negative); Protein Urine Neg (Negative); RBC Urine 0-4 /hpf (0-2); Specific Gravity, Urine 1.015 (1.005-1.030); Squamous Epithelial Cell Urine 0-4 (0-5); Urine Appearance Clear (CLEAR); Urine Color Yellow (Yellow); Urobilinogen Urine Norm (Negative); pH Urine 5 (5-7)
[2019-10-08 05:50] LABS: Anion Gap 19.1 (5-19); Blood Urea Nitrogen 6 mg/dL (6-20); Calcium 8.6 mg/dL (8.5-10.5); Carbon Dioxide 20 mmol/L (22-29); Chloride 99 mmol/L (98-107); Glomerular Filtration Rate 103.4 mL/min (90-130); Glucose 454 mg/dL (74-109); Osmolality Calculated 296 mOsm/kg (285-295); Potassium 3.1 mmol/L (3.5-5.1); Sodium 135 mmol/L (136-145)
[2019-10-08 06:28] LABS: Slide Review Slide Review Perform
[2019-10-08] MEDS: metroNIDAZOLE IV 500 MG/100 ML PREMIX 100 MG IV ×2 (08:45→17:49)
[2019-10-08] MEDS: pantoprazole DR 40 mg Tablet 20 MG PO (08:45)
[2019-10-08] MEDS: losartan 50 mg Tablet 25 MG PO (08:46)
[2019-10-08] MEDS: duloxetine 30 mg Capsule PO (08:46)
[2019-10-08] MEDS: levothyroxine 50 mcg Tablet PO (08:55)
[2019-10-08 11:24] LABS: Glucose Point of Care 361 mg/dL (70-110)
[2019-10-08] MEDS: magnesium sulfate premix 2 GM/50 ML PIGGYBACK IV (12:23)
[2019-10-08] MEDS: piperacillin-tazobactam 3.375 GM in sodium chloride 0.9% (plus) 50 ML IV ×2 (12:24→20:53)
--- NOTE | 2019-10-08 13:17 | PM.PN ---
Subjective Subjective: Interval history: Shila reports she feels about the same. Still having loose stool. History and physical reviewed. Medications: Reviewed: Yes Vitals/I&O/Wt Last Vital Signs Temp 98.6 F 10/08/19 11:00 Pulse 101 H 10/08/19 11:00 Resp 16 10/08/19 11:00 BP 170/75 10/08/19 11:00 Pulse Ox 95 10/08/19 11:00 10/07/19 10/08/19 10/08/19 22:59 06:59 14:59 Intake Total 1000 / 1000 1332.50 / 2332.50 1080 / 1080 Output Total 100 / 100 Balance 1000 / 1000 1232.50 / 2232.50 1080 / 1080 Weight last 48 hrs Weight 99.79 kg Physical Exam Narrative: EXAM NARRATIVE: General exam is a tired appearing white female in no apparent distress Cardiovascular slightly tachycardic, regular, no murmur Lungs clear Abdomen slight generalized tenderness. Positive bowel sounds Extremities no cyanosis clubbing or edema Data : 10/08/19 04:40 10/08/19 04:40 Other Labs: C. difficile negative Micro: Microbiology 10/07/19 23:34 Stool Lactoferrin - Final Stool Enteric Pathogens (PCR) - Final C.difficile Toxin B Gene (PCR) - Final Occult Blood (FIT) - Final 10/07/19 21:22 Blood Culture - Preliminary Blood SPECIMEN COLLECTED 10/07/19 21:20 Blood Culture - Preliminary Blood SPECIMEN COLLECTED A&P Assessment and plan (1) Colitis: Continue Flagyl. Change Rocephin to Zosyn. C. difficile is negative. Status: Acute Code(s): K52.9 - Noninfective gastroenteritis and colitis, unspecified (2) Dehydration: Resolving Status: Acute Code(s): E86.0 - Dehydration (3) Breast cancer, left: Status post chemotherapy. Last treatment around Status: Acute Code(s): C50.912 - Malignant neoplasm of unspecified site of left female breast Additional A&P Information Leukocytosis, improving Hypothyroidism Diabetes mellitus. Start sliding scale insulin. Hypomagnesemia, hypokalemia. Supplement. Continue DVT prophylaxis with Lovenox Attestations Medical Necessity Statement*: Needs continued hospitalization for IV antibiotics secondary to colitis. Coding Level of Care Code Acute Commercial Administrator for [facility] Diagnoses Colitis K52.9 Dehydration E86.0 Breast cancer, left C50.911
--- NOTE | 2019-10-08 13:30 | PC.CHAP ---
Pastoral Care Encounter/Spiritual Assessment Type of Contact [] Declined micropaleontologist visit [] Patient/Family/Request visit [] Outpatient visit [] Follow-up visit [] Physician referral [] Code/Alert [x] Routine visit [] Staff referral [] Actively dying [] Patient sleeping [] Family support [] [] Out of room [] Palliative care [] [] Receiving care in room [] Pre-surgical visit [] Trauma [] Long length of stay [] ICU visit [] Other: Relational/Emotional Strength [x] Patient feels connected with others/family/visitors/staff [] Distress [] Loneliness/isolation [] Abandonment Spirituality of Patient [] Person of Sarah [] Attends Evangelical of their Sarah [x] Believes in Prayer [] Reads Bible or Taoist materials [] There are Spiritual issues to be addressed Disc Pad Grinder Interventions [] Prayer [x] Active listening [x] Non-anxious presence [x] Spiritual/emotional support [] Crisis/trauma care [] Spiritual counseling [] Bereavement support [] Provided bereavement packet [] Provided Bible/devotional materials [] Provided toy/stuffed animal, coloring book to patient or family member [] Provided Communion [] Anointing/[place] [] Salvation [] Completed spiritual assessment [] Other: Impact on Illness or Injury [] Angry [] Fearful [] Anxious [] Often cries [] Exhaustion [x] Unable to work [] Unable to attend mosque [] Unable to walk/stand [] Unable to read [] Unable to drive [] Unable to eat/drink [] Unable to sleep [] Unable to be with family [] Patient intubated [] Other: Summary Patient expressed concern over potentially losing her job because of the time she has missed work due to the treatments for her illness. Stated that she has recently lost her mother and believes that the stress from that is what has caused her to become sick. Patient asked for micropaleontologist to come back later and pray for her. Patient visited by Disc Pad Grinder Carrington Mcgraw. Time spent with patient 15 minutes
[2019-10-08 14:04] LABS: Glucose Point of Care 145 mg/dL (70-110)
[2019-10-08 16:44] LABS: Glucose Point of Care 90 mg/dL (70-110)
[2019-10-08 21:48] LABS: Glucose Point of Care 200 mg/dL (70-110)
[2019-10-09] MEDS: metroNIDAZOLE IV 500 MG/100 ML PREMIX 100 MG IV ×4 (02:07→19:26)
[2019-10-09] MEDS: enoxaparin 40 mg/0.4 mL Syringe SUBCUT (02:08)
[2019-10-09 03:00] VITALS: BP 150/66; PULSE 90; RESP 22; TEMP 36.8; O2SAT 94
[2019-10-09] MEDS: piperacillin-tazobactam 3.375 GM in sodium chloride 0.9% (plus) 50 ML IV ×3 (04:49→19:26)
[2019-10-09] MEDS: TRAMadol 50 mg Tablet PO (05:07)
[2019-10-09 05:30] LABS: Basophils % 0.2 %; Hematocrit 31.6 % (37.0-47.0); Hemoglobin 10.6 g/dL (11.5-15.3); Lymphocytes # 2.2 10^3/uL (0.8-4.8); Lymphocytes % 20.5 %; Mean Corpuscular HGB Conc 33.5 g/dL (30.0-36.0); Mean Corpuscular Hemoglobin 35.3 pg (28.0-34.0); Mean Corpuscular Volume 105.3 fL (81-99); Mean Platelet Volume 10.1 fL (7.4-10.4); Monocytes # 0.7 10^3/uL (0.2-0.9); Monocytes % 6.7 %; Neutrophils # 7.3 10^3/uL (1.8-7.7); Nucleated Red Blood Cells % 0 %; Platelet Count 251 10^3/cmm (130-400); Red Cell Distribution Width 14.9 % (12.1-15.1); White Blood Count 10.8 10^3/uL (4.0-10.0)
[2019-10-09 05:46] LABS: Anion Gap 15.5 (5-19); Blood Urea Nitrogen 2 mg/dL (6-20); Calcium 8.9 mg/dL (8.5-10.5); Carbon Dioxide 23 mmol/L (22-29); Chloride 107 mmol/L (98-107); Glomerular Filtration Rate 127.6 mL/min (90-130); Glucose 134 mg/dL (74-109); Magnesium 1.5 mg/dL (1.7-2.3); Osmolality Calculated 292 mOsm/kg (285-295); Potassium 3.5 mmol/L (3.5-5.1); Sodium 142 mmol/L (136-145)
[2019-10-09 06:24] LABS: Slide Review Slide Review Perform
[2019-10-09 06:57] LABS: Glucose Point of Care 151 mg/dL (70-110)
[2019-10-09 07:00] VITALS: BP 160/70; PULSE 102; RESP 20; TEMP 36.5; O2SAT 95
[2019-10-09] MEDS: sodium chlor 0.9% + KCl 40 mEq 40 MEQ/1,000 ML BAG 75 MEQ IV ×2 (08:16→16:49)
[2019-10-09] MEDS: losartan 50 mg Tablet 25 MG PO (08:20)
[2019-10-09] MEDS: levothyroxine 50 mcg Tablet PO (08:20)
[2019-10-09] MEDS: duloxetine 30 mg Capsule 90 MG PO (08:20)
[2019-10-09] MEDS: pantoprazole DR 40 mg Tablet 20 MG PO (08:21)
[2019-10-09 11:00] VITALS: BP 173/90; PULSE 102; RESP 20; TEMP 36.9; O2SAT 95
[2019-10-09 11:00] LABS: Glucose Point of Care 234 mg/dL (70-110)
[2019-10-09] MEDS: magnesium sulfate premix 2 GM/50 ML PIGGYBACK IV (11:06)
--- NOTE | 2019-10-09 13:49 | PM.PN ---
Subjective Subjective: Interval history: A little bit better. She still a little bit dizzy. She is still having bowel movements when she eats. Medications: Reviewed: Yes Vitals/I&O/Wt Last Vital Signs Temp 98.5 F 10/09/19 11:00 Pulse 102 H 10/09/19 11:00 Resp 20 H 10/09/19 11:00 BP 173/90 10/09/19 11:00 Pulse Ox 95 10/09/19 11:00 10/08/19 10/09/19 10/09/19 22:59 06:59 14:59 Intake Total 1467.5 / 2547.5 1127.50 / 3675.00 1592.5 / 1592.5 Output Total 120 / 120 Balance 1467.5 / 2547.5 1007.50 / 3555.00 1592.5 / 1592.5 Weight last 48 hrs Weight 99.79 kg Physical Exam Narrative: EXAM NARRATIVE: General exam no apparent distress Cardiovascular regular rate and rhythm without murmur Lungs clear Abdomen positive bowel sounds, soft Extremities no cyanosis clubbing or edema Data : 10/09/19 05:01 10/09/19 05:01 Micro: Microbiology 10/08/19 04:30 Urine Culture - Preliminary Urine,Voided 10/07/19 21:22 Blood Culture - Preliminary Blood NEGATIVE TO DATE 10/07/19 21:20 Blood Culture - Preliminary Blood NEGATIVE TO DATE 10/07/19 23:34 Stool Lactoferrin - Final Stool Enteric Pathogens (PCR) - Final Parasite Antigen Panel - Final C.difficile Toxin B Gene (PCR) - Final Occult Blood (FIT) - Final A&P Assessment and plan (1) Colitis: Continue Flagyl. Continue Zosyn. C. difficile negative. Status: Acute Code(s): K52.9 - Noninfective gastroenteritis and colitis, unspecified (2) Dehydration: Resolved Status: Acute Code(s): E86.0 - Dehydration (3) Breast cancer, left: Status post chemotherapy. Last treatment around Status: Acute Code(s): C50.912 - Malignant neoplasm of unspecified site of left female breast Additional A&P Information Leukocytosis, improving Hypothyroidism Diabetes mellitus. Start sliding scale insulin. Blood sugar improved Hypomagnesemia, hypokalemia. Supplement. Continue DVT prophylaxis with Lovenox Attestations Medical Necessity Statement*: Hospitalization for fluid support secondary to significant colitis also requiring antibiotics. Coding Level of Care Code Acute Cafe Assistant for [facility] Fwd Diagnoses Colitis K52.9 Dehydration E86.0 Breast cancer, left C50.917
[2019-10-09 15:00] VITALS: BP 152/82; PULSE 98; RESP 20; TEMP 36.9; O2SAT 98
[2019-10-09 16:11] LABS: Glucose Point of Care 169 mg/dL (70-110)
[2019-10-09] MEDS: fluticasone nasal spray 16gm Btl 2 SPRAY NASAL (16:49)
[2019-10-09 18:09] VITALS: BP 163/75; PULSE 101; RESP 20; TEMP 37.1; O2SAT 94
[2019-10-09 20:16] VITALS: BP 133/70; PULSE 90; RESP 20; TEMP 37.1; O2SAT 96
[2019-10-09 21:44] LABS: Glucose Point of Care 143 mg/dL (70-110)
[2019-10-10] VITALS (7 sets, daily range): BP systolic 127–174; BP diastolic 71–89; PULSE 88–105; RESP 16–20; TEMP 36.7–37.2; O2SAT 95–97; BMI 31.8
[2019-10-10] MEDS: metroNIDAZOLE IV 500 MG/100 ML PREMIX 100 MG IV ×4 (02:10→21:25)
[2019-10-10] MEDS: enoxaparin 40 mg/0.4 mL Syringe SUBCUT (02:10)
[2019-10-10 02:29] LABS: Glucose Point of Care 70 mg/dL (70-110)
[2019-10-10] MEDS: piperacillin-tazobactam 3.375 GM in sodium chloride 0.9% (plus) 50 ML IV ×3 (03:57→21:24)
[2019-10-10] MEDS: sodium chlor 0.9% + KCl 40 mEq 40 MEQ/1,000 ML BAG 75 MEQ IV ×2 (05:41→20:31)
[2019-10-10 05:55] LABS: Basophils % 0.1 %; Hematocrit 31.2 % (37.0-47.0); Hemoglobin 10.3 g/dL (11.5-15.3); Lymphocytes # 1.6 10^3/uL (0.8-4.8); Lymphocytes % 18.4 %; Mean Corpuscular Hemoglobin 34.7 pg (28.0-34.0); Mean Corpuscular Volume 105.1 fL (81-99); Monocytes # 0.6 10^3/uL (0.2-0.9); Monocytes % 6.6 %; Neutrophils # 6.4 10^3/uL (1.8-7.7); Neutrophils % 72.7 %; Nucleated Red Blood Cells % 0 %; Platelet Count 226 10^3/cmm (130-400); Red Blood Count 2.97 10^6/uL (4.1-5.3); Red Cell Distribution Width 14.9 % (12.1-15.1); White Blood Count 8.7 10^3/uL (4.0-10.0)
[2019-10-10 06:10] LABS: Anion Gap 13.3 (5-19); Blood Urea Nitrogen 2 mg/dL (6-20); Calcium 8.9 mg/dL (8.5-10.5); Carbon Dioxide 25 mmol/L (22-29); Chloride 107 mmol/L (98-107); Glomerular Filtration Rate 127.6 mL/min (90-130); Glucose 98 mg/dL (65-115); Osmolality Calculated 290 mOsm/kg (285-295); Potassium 3.3 mmol/L (3.5-5.1); Sodium 142 mmol/L (136-145)
[2019-10-10 06:57] LABS: Glucose Point of Care 91 mg/dL (70-110)
[2019-10-10] MEDS: losartan 50 mg Tablet 25 MG PO (08:30)
[2019-10-10] MEDS: levothyroxine 50 mcg Tablet PO (08:30)
[2019-10-10] MEDS: duloxetine 30 mg Capsule 90 MG PO (08:31)
[2019-10-10] MEDS: pantoprazole DR 40 mg Tablet 20 MG PO (08:32)
[2019-10-10] MEDS: fluticasone nasal spray 16gm Btl 2 SPRAY NASAL ×2 (08:40→17:46)
[2019-10-10] MEDS: ondansetron 2 mg/ML SDV 2 mL 4 MG IVP (11:25)
[2019-10-10 11:35] LABS: Glucose Point of Care 171 mg/dL (70-110)
--- NOTE | 2019-10-10 14:17 | PM.PN ---
Subjective Subjective: Interval history: Shila reports she is hungry. She wants her diet advanced. No real abdominal pain unless you press on her stomach significantly. Still having loose stools. Medications: Reviewed: Yes Vitals/I&O/Wt Last Vital Signs Temp 98.1 F 10/10/19 11:44 Pulse 102 H 10/10/19 11:44 Resp 18 10/10/19 11:44 BP 159/80 10/10/19 11:44 Pulse Ox 96 10/10/19 11:44 10/09/19 10/10/19 10/10/19 22:59 06:59 14:59 Intake Total 1567.50 / 3260.00 912.50 / 4172.50 150 / 150 Output Total 675 / 675 Balance 1567.50 / 3260.00 237.50 / 3497.50 150 / 150 Weight last 48 hrs Weight 103.561 kg Weight 103.561 kg Physical Exam Narrative: EXAM NARRATIVE: General exam no apparent distress Cardiovascular regular rate and rhythm without murmur Lungs clear Abdomen positive bowel sounds, soft. Some mild tenderness with pressure. Extremities no cyanosis clubbing or edema Data : 10/10/19 05:10 10/10/19 05:10 Micro: Microbiology 10/08/19 04:30 Urine Culture - Final Urine,Voided A&P Assessment and plan (1) Colitis: Continue Flagyl. Continue Zosyn. C. difficile negative. Continues to have some loose stool. Advance diet 1 dose of Imodium Status: Acute Code(s): K52.9 - Noninfective gastroenteritis and colitis, unspecified (2) Dehydration: Resolved Status: Acute Code(s): E86.0 - Dehydration (3) Breast cancer, left: Status post chemotherapy. Last treatment around Status: Acute Code(s): C50.912 - Malignant neoplasm of unspecified site of left female breast Additional A&P Information Leukocytosis, significantly improved Hypothyroidism Diabetes mellitus. Some lower sugars. Reduce long-acting insulin Hypomagnesemia, hypokalemia. Supplement. Continue DVT prophylaxis with Lovenox Attestations Medical Necessity Statement*: Needs continued hospital stay for IV antibiotics secondary to colitis Coding Level of Care Code Acute Meat Packer for [facility] Fwd Diagnoses Colitis K52.9 Dehydration E86.0 Breast cancer, left C50.912
[2019-10-10] MEDS: diphenoxylate/atropine Tablet 1 TAB PO (15:12)
[2019-10-10 15:17] LABS: Glucose Point of Care 242 mg/dL (70-110)
[2019-10-10 16:11] LABS: Glucose Point of Care 229 mg/dL (70-110)
--- NOTE | 2019-10-10 19:00 | PC.NURSE ---
Introduction of staff and report received, aidet.
[2019-10-10 20:50] LABS: Glucose Point of Care 169 mg/dL (70-110)
[2019-10-11] VITALS (8 sets, daily range): BP systolic 106–162; BP diastolic 68–89; PULSE 96–108; RESP 18–20; TEMP 36.7–37.1; O2SAT 96–98
[2019-10-11] MEDS: oxyCODONE 5 mg IR Tab/Cap 10 MG PO (01:27)
[2019-10-11] MEDS: piperacillin-tazobactam 3.375 GM in sodium chloride 0.9% (plus) 50 ML IV ×2 (06:18→11:35)
[2019-10-11] MEDS: metroNIDAZOLE IV 500 MG/100 ML PREMIX 100 MG IV ×3 (06:20→14:50)
[2019-10-11] MEDS: enoxaparin 40 mg/0.4 mL Syringe SUBCUT (06:23)
[2019-10-11 06:51] LABS: Glucose Point of Care 185 mg/dL (70-110)
[2019-10-11] MEDS: levothyroxine 50 mcg Tablet PO (08:18)
[2019-10-11] MEDS: duloxetine 30 mg Capsule 90 MG PO (08:18)
[2019-10-11] MEDS: losartan 50 mg Tablet 25 MG PO (08:18)
[2019-10-11] MEDS: pantoprazole DR 40 mg Tablet PO (08:19)
[2019-10-11] MEDS: fluticasone nasal spray 16gm Btl 2 SPRAY NASAL ×2 (08:34→17:06)
[2019-10-11 09:48] LABS: Anion Gap 11.9 (5-19); Blood Urea Nitrogen 3 mg/dL (6-20); Calcium 8.7 mg/dL (8.5-10.5); Carbon Dioxide 25 mmol/L (22-29); Chloride 105 mmol/L (98-107); Glomerular Filtration Rate 127.6 mL/min (90-130); Glucose 212 mg/dL (65-115); Magnesium 1.2 mg/dL (1.7-2.3); Osmolality Calculated 288 mOsm/kg (285-295); Potassium 3.9 mmol/L (3.5-5.1); Sodium 138 mmol/L (136-145)
[2019-10-11] MEDS: sodium chlor 0.9% + KCl 40 mEq 40 MEQ/1,000 ML BAG 75 MEQ IV (10:42)
[2019-10-11] MEDS: ondansetron 2 mg/ML SDV 2 mL 4 MG IVP (10:42)
[2019-10-11 10:58] LABS: Glucose Point of Care 200 mg/dL (70-110)
--- NOTE | 2019-10-11 16:26 | PM.DCS ---
Discharge Providers Date of Admission: 10/07/19 23:44 Date of Discharge: Date of Discharge: October 11, 2019 Attending Provider at Admission: Victorino Jeffries MD Attending Provider at Discharge: Hermes Cardona Primary Care Provider: Fernando Sheppard MD Diagnoses at Discharge Discharge Diagnosis (1) Colitis: Status: Acute (2) Dehydration: Status: Acute (3) Breast cancer, left: Status: Acute Reason for Visit Reason for Visit: Reason For Visit: not ate/drank in 48 hrs Hospital Course Hospital Course: This is a pleasant 54-year-old lady with history of breast cancer, having just finished a course of chemotherapy with TCH-P who was admitted due to persistent diarrhea since 09/24 which was not improving despite trials of antidiarrheals at home. She has had poor appetite, with dehydration, generalized weakness. Has not had good oral intake within 48 hours of admission. She was admitted for IV hydration, assessment of infectious diarrhea, and initially empirically started on IV Flagyl and Zosyn. She had recently received a course of Augmentin and so there was concern for C. difficile colitis. Stool studies had been collected and had resulted with positive WBC, but negative enteric pathogen panel, C. difficile. Her diarrhea continued, and she did receive a dose of Imodium with subsequent improvement. She has had no further diarrhea today. She is tolerating oral diet with improvement in appetite. She reports occasional rumble in her abdomen, however, no continuous pain or discomfort. Her diarrhea is split suspected secondary to her chemotherapy, and is a very common side effect with Pertuzumab, trastuzumab. Per discussion with her oncologist she is completed her course. She may return home and follow-up with him in the office. She was originally scheduled for mastectomy today which had to be postponed. Either she or her oncologist should contact the surgery office for further rescheduling of the procedure. Physical Exam Const: COMMON NORMALS: no apparent distress and oriented x3 OTHER: Allopecia HENMT: COMMON NORMALS: oropharynx normal Neck/C-Spine: COMMON NORMALS: no JVD Resp: COMMON NORMALS: normal respiratory effort and clear to auscultation bilaterally AUSCULTATION: clear to auscultation bilaterally Cardio: COMMON NORMALS: no JVD, regular rhythm, S1 normal heart sound, S2 normal heart sound and no murmurs RHYTHM: regular rhythm HEART SOUNDS: S1 normal and S2 normal GI: COMMON NORMALS: normal to inspection, nondistended, normoactive bowel sounds, soft to palpation and non-tender PALPATION: Yes soft Extremity: COMMON NORMALS: no joint enlargement and no pedal edema Neuro: COMMON NORMALS: oriented x3 and moves all extremities Skin: COMMON NORMALS: no rashes or lesions noted GENERAL SKIN EXAM: no rashes or lesions noted Discharge Data Data Completed and Pending: Completed Studies During Hospitalization Category Date Time Status CT abdomen pelvis w con* [id number] Urge nt Cat Scan 10/07/19 21:11 Completed XR chest 1V selma ble [id number] Urgent Exams 10/07/19 21:11 Completed Pending at discharge Category Date Time Status Blood Culture Sta t Lab 10/07/19 21:22 Results Labs from last 24 hours 10/11/19 10/11/19 10/11/19 10:53 08:59 06:38 Sodium 138 Potassium 3.9 Chloride 105 Carbon Dioxide 25 Anion Gap 11.9 BUN 3 L Creatinine 0.5 GFR Calculation 127.6 Glucose 212 H POC Glucose 200 185 Calculated Osmolal ity 288 Calcium 8.7 Magnesium 1.2 L 10/10/19 20:45 Sodium Potassium Chloride Carbon Dioxide Anion Gap BUN Creatinine GFR Calculation Glucose POC Glucose 169 Calculated Osmolal ity Calcium Magnesium Vitals: Last Vital Signs Temp 98.3 F 10/11/19 12:00 Pulse 97 10/11/19 12:00 Resp 18 10/11/19 12:00 BP 106/68 10/11/19 12:00 Pulse Ox 96 10/11/19 12:00 Discharge Plan Discharge Patient Disposition: Home, Self-Care Condition: Stable Prescriptions: Continued Compazine 5 mg Tablet 5 mg PO QID PRN (Reason: Nausea) RF: 0 Zofran 4 mg Tablet 4 mg PO Q6H PRN (Reason: Nausea) RF: 0 tramadol 50 mg Tablet 50 mg PO Q4H PRN (Reason: Pain) RF: 0 Protonix 20 mg Tablet,Delayed Release (Dr/Ec) 20 mg PO DAILY RF: 0 alprazolam [Xanax] 0.5 mg Tablet 0.5 mg PO Q4H PRN (Reason: Anxiety) RF: 0 levothyroxine 50 mcg Tablet 50 mcg PO DAILY RF: 0 losartan 25 mg Tablet 25 mg PO DAILY RF: 0 Flonase Allergy Relief 50 mcg/actuation [place],Suspension 1 spray INTRANASAL BID RF: 0 Claritin 10 mg Tablet 10 mg PO DAILY RF: 0 duloxetine 30 mg Capsule,Delayed Release(Dr/Ec) 30 mg PO DAILY RF: 0 duloxetine 60 mg Capsule,Delayed Release(Dr/Ec) 60 mg PO DAILY RF: 0 Mucinex 600 mg Tablet Extended Release 12hr 600 mg PO BID RF: 0 OxyContin 10 mg Tablet,Oral Only,Ext.Rel.12 Hr 10 mg PO Q4H PRN (Reason: Pain) RF: 0 Humalog KwikPen Insulin 100 unit/mL insulin pen 15 unit SUBCUT DAILY RF: 0 Marinol 2.5 mg Capsule RF: 0 Changed Levemir FlexTouch U-100 Insuln 100 unit/mL (3 mL) insulin pen 40 unit SUBCUT DAILY Qty: 0 RF: 0 Discharge Orders: Discharge Order (Routine); Ordered 10/11/19 Ordered By: Hermes Cardona Other Ambulatory Orders: Basic Metabolic Panel (Routine) Timeframe: 3 Days Facility: [facility] - Location: Lab - Main Lab Ordered By: Hermes Cardona Referrals: Fernando Sheppard MD [Primary Care Provider] - 4-7 days Preston Cuellar MD [Hospitalist] - 1 week Discharge Diet: Advance as tolerated Discharge Activity: Increase activity as tolerated Activity Restrictions/Additional Instructions: Avoid lactose until diarrhea resolves. If having recurrence of severe diarrhea, presence of abdominal pain, fevers, blood in stool, or other abnormal symptoms, please seek medical attention. Discharge Attestations Time Spent in Discharge Care*: greater than 30 min Quality Metrics Clinical Quality Measures During this hospital stay, did patient experience: None Coding Level of Care Code Acute Warehouse Checker for [facility] Fwd Diagnoses Colitis K52.9 Dehydration E86.0 Breast cancer, left C50.226
[2019-10-11] MEDS: magnesium sulfate premix 2 GM/50 ML PIGGYBACK IV (16:41)
[2019-10-11 17:00] LABS: Glucose Point of Care 238 mg/dL (70-110)
== END 2019-10-11 18:13 | disposition home or self-care (01) | DRG 395 ==
LOC: ER 20:56 → MEDSURG 10-08 00:20
PROVIDERS: Internal Medicine; Admitting Provider Internal Medicine; Emergency Provider Emergency Medicine; Family Provider Family Medicine; PCP Family Medicine; Visit Provider Internal Medicine
DX: K52.1 Toxic gastroenteritis and colitis (principal); E86.0 Dehydration; K21.9 Gastro-esophageal reflux disease without esophagitis; I10 Essential (primary) hypertension; C50.912 Malignant neoplasm of unspecified site of left female breast; E03.9 Hypothyroidism, unspecified; E11.42 Type 2 diabetes mellitus with diabetic polyneuropathy; F17.210 Nicotine dependence, cigarettes, uncomplicated; Z90.710 Acquired absence of both cervix and uterus; E83.42 Hypomagnesemia; E87.6 Hypokalemia; T45.1X5A Adverse effect of antineoplastic and immunosuppressive drugs, initial encounter
CPT/HCPCS: 12345; 36415; 36416; 36591; 36592; 71045; 74177; 80048; 80053; 81001; 82274; 82550; 82962; 83605; 83630; 83735; 85007; 85025; 86140; 87040; 87086; 87493; 87505; 96360; 96365; 96366; 96372; 96374; 96375; 99283; J0696; J1650; J1815; J2270; J2405; J2543; J3475; J7030; Q9967; S0030

== ENCOUNTER → 2019-10-18 08:47 | Outpatient (BNVA) | payer BC, SELFPAY | PROVIDERS: Family Provider Family Medicine; PCP Family Medicine; Visit Provider Specialist | DX: S42.211A Unspecified displaced fracture of surgical neck of right humerus, initial encounter for closed fracture (principal); W19.XXXA Unspecified fall, initial encounter; M25.522 Pain in left elbow; M25.521 Pain in right elbow; M19.021 Primary osteoarthritis, right elbow | CPT/HCPCS: 73030; 73080 ==

== ENCOUNTER 2019-10-19 05:44 | Outpatient (RCR) | payer BC, SELFPAY ==
[2019-10-15 08:56] LABS: Basophils % 0.5 %; Lymphocytes # 2.2 10^3/uL (0.8-4.8); Lymphocytes % 26.7 %; Mean Corpuscular HGB Conc 32.3 g/dL (30.0-36.0); Mean Corpuscular Hemoglobin 33.7 pg (28.0-34.0); Mean Corpuscular Volume 104.4 fL (81-99); Mean Platelet Volume 9.8 fL (7.4-10.4); Monocytes # 0.7 10^3/uL (0.2-0.9); Neutrophils # 5.2 10^3/uL (1.8-7.7); Neutrophils % 64.3 %; Nucleated Red Blood Cells % 0 %; Platelet Count 328 10^3/cmm (130-400); Red Blood Count 2.97 10^6/uL (4.1-5.3); White Blood Count 8.1 10^3/uL (4.0-10.0)
[2019-10-15 09:12] LABS: Alanine Aminotransferase 11 U/L (0-33); Alkaline Phosphatase 97 IU/L (35-105); Anion Gap 15.4 (5-19); Aspartate Amino Transferase 15 U/L (0-32); Blood Urea Nitrogen 9 mg/dL (6-20); Calcium 9.1 mg/dL (8.5-10.5); Carbon Dioxide 26 mmol/L (22-29); Chloride 100 mmol/L (98-107); Globulin 2.7 g/dL (1.3-4.6); Glomerular Filtration Rate 127.6 mL/min (90-130); Glucose 299 mg/dL (65-115); Magnesium 1.2 mg/dL (1.7-2.3); Potassium 3.4 mmol/L (3.5-5.1); Sodium 138 mmol/L (136-145); Total Bilirubin 0.2 mg/dL (0.15-1.2); Total Protein 5.7 g/dL (6.6-8.7)
[2019-10-15 09:24] LABS: Slide Review Slide Review Perform
--- NOTE | 2019-10-17 15:40 | ONC FU_ITS ---
[facility] Patient Note Patient: Shila Sheppard Unit #: [id number]: [id number] Dictated By: Walter GreenDate of Visit: Oct 15, 2019 Onc MED Follow-Up/Prog Note Chief Complaint: Breast cancer. History of Present Illness: Mrs Sheppard is a 54 year-old woman with grade 3 infiltrating ductal carcinoma of the left breast, ER/MA positive and HER-2/kelsie positive. By clinical and pathologic evaluation and with ER/MA and HER-2/kelsie positive disease, she is stage IB (T2, N1, M0). She had presented with a palpable mass in the left breast, first noticed a month to a month and a half ago. Bilateral diagnostic mammogram with limited ultrasound of the left breast on 04/17/2019 was BI-RADS category 5, highly suspicious of malignancy. Findings included an irregular marginated spiculated soft tissue mass in the posterior inferior left breast at the 6 o'clock position measuring 3.3 x 2.8 cm. The underlying skin appeared retracted and thickened. There are no abnormalities noted in the right breast. Ultrasound-guided biopsy of the left breast mass on 05/08/2019 showed grade 2 infiltrating ductal carcinoma. The best prognostic profile showed ER positive at 87% and MA positive at 41%. The tumor was positive for overexpression of HER-2/kelsie, 3+ by IHC and amplification ratio by FISH of 3.8 with 13.3 HER-2 copies/cell. The Ki-67 was unfavorable at 24%. Dr Cuellar had seen her initially on 05/18/2019. She was recommended to undergo neoadjuvant chemotherapy with TCH-P. Her baseline echocardiogram showed normal LV function with estimated ejection fraction 65%. Staging PET/CT also was recommended but delayed because of insurance issues. Her other medical illnesses include hypertension, type II diabetes with peripheral neuropathy, GERD, and hypothyroidism. She has a history of emphysematous pyelonephritis. Her surgical history includes vaginal hysterectomy with unilateral oophorectomy in 2008. She does not recall ever having hot flashes or other indications of menopause. She has a history of smoking 1/2 pack of cigarettes daily for 30 years. INTERIM HISTORY: She began cycle 1 of TCH-P on 06/11/2019. She was given first cycle prophylaxis with Neulasta. Her treatment was complicated by severe headache and dizziness for several days and subsequently by nausea/vomiting and diarrhea. On day 3 she passed out at home, sustaining a fracture to the proximal right humerus. At day 6 she was admitted to the hospital because of intractable nausea and diarrhea. The maximum diarrhea was estimated at 6 stools per day. She also developed sore mouth, which lasted for about a week. She was very weak generally and had poor appetite for the first 2 weeks. During the last week of the cycle she had started to feel a lot better, but she then fell again when she stepped in a hole and she sustained a fracture to her proximal left humerus. Both fractures have been managed conservatively. She then proceeded with cycle 2 of her chemotherapy on 07/02/2019. With that cycle she was given scheduled hydration, but her dosages remain the same. She was able to tolerate it with acceptable toxicity. She then continued with cycle 3 on 07/23/2019, with cycle 4 on 08/13/2019, and with cycle 5 on 09/03/2019. The 5th cycle was administered without Neulasta. She was given daily hydration during the first week of the cycle. At day 8 she was neutropenic, but she recovered uneventfully with Neupogen. Overall, with the added hydration she tolerated the treatment pretty well. She completed 6 cycles of TCH-P on 09/24/2019. She [place] [facility] with dehydration and anorexia. She also had significant diarrhea at that time. She was discharged on October 11, 2019 after receiving supportive care and IV Flagyl and Zosyn for concerns of infectious diarrhea. She had received Augmentin just recently prior to that admission so there was concern for C. difficile. C. difficile was negative the diarrhea did continue that was suspected to be due to the chemotherapy. It did eventually resolved with Imodium. She is here today for follow-up post hospital. She states the diarrhea has resolved and she is eating and drinking well. She is actually returned to work and tolerating this well. She does tire easily but is tolerating it fine. She is had no fever or chills. She denies any further diarrhea or abdominal cramping. She denies any further nausea. She is had no further dehydration. She is seen Dr. Nice later this week to determine when she will be set up for surgery. The tentative plan is for bilateral mastectomy. Her ECOG is 1. She denies any new or worsening pain. Past Medical History: Emphysematous pyelonephritis Gastroesophageal reflux disease Hypertension Hypothyroidism Peripheral neuropathy Type II diabetes Left proximal humeral fracture in 2019 Right proximal humeral fracture in 2019 Past Surgical History: Cholecystectomy Excision of Holly's neuroma Subtotal thyroidectomy Right subcclavian Bxwi-h-viea-Dr Nice in 2018 Left breast lumpectomy for benign disease in 2014 Vaginal hysterectomy with unilateral right salpingo-oophorectomy in 2008 Left thyroid lobectomy for multinodular goiter in 2004 Allergies: NORBERTO Inhibitors, NSAIDs, and Ozempic. Medications: DULoxetine HCl 1 Capsule (of 60 mg) Capsule Delayed Release Particles Oral daily DULoxetine HCl 1 Capsule (of 30 mg) Capsule Delayed Release Particles Oral daily Levemir 40 Units (of 100 Units/mL) Subcutaneous b.i.d. Levo-T 1 Tablet (of .5 mcg) Oral daily Losartan Potassium 1 Tablet (of 25 mg) Oral daily Marinol 1 Capsule (of 2.5 mg) Oral b.i.d. PRN NovoLOG 15 Units (of 100 Units/mL) Subcutaneous t.i.d. oxyCODONE HCl 1 Tablet (of 10 mg) Oral four times a day PRN Polytrim 1 Drop(s) (of 22665-5.1 Units/mL - %) Solution Ophthalmic q 3 hours PRN Protonix 1 Tablet (of 20 mg) Tablet, enteric coated Oral daily traMADol HCl 1 - 2 tablespoonful(s) (of 50 mg) Tablet Oral q 6 hours PRN Family History: Ms. Sheppard's mother is alive. Ms. Sheppard's father is alive. Both parents are still living, father at age 78 and mother at age 76. Father has coronary artery disease and he also has been treated for prostate cancer. Her mother has polycystic kidney disease with renal failure, and she is on dialysis. One brother is in good health. There are multiple family members with breast cancer on her father's side, including 2 paternal aunts and a first cousin. At least 2 of those family members have been tested for BRCA and reportedly were negative. 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 She is a daily smoker who has smoked 0.5 packs/day for 30 years. She drinks occasionally. She has indicated exposure to the following products: cigarettes. Ms. Sheppard reports the following support systems: lives with spouse, significant other, family, or friends, lives in own house, supportive family/friends willing to assist with needs, and adequate transportation available for expected visits. Her diet consists of regular meals. She indicates her activity level as: regular exercise. 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 She has a history of smoking for 30 years, previously in the range of 1/2 pack of cigarettes daily. She has cut down. She has only rare alcohol use. Review Of Symptoms: Constitutional Denies fevers, chills, night sweats, excessive fatigue. She has lost 13 pounds since her last hospitalization. Allergic/Immunologic No reactions. Eyes Denies significant visual changes. No diplopia. No amaurosis. ENMT Denies changes in hearing, sore throat, mouth sores, difficulty or changes in swallowing ability, and/or sinus drainage. Hematologic/Lymphatic Denies easy bruising or bleeding. The patient denies any tender or palpable lymph nodes. Breasts No new concerns. Respiratory Denies dyspnea on exertion, chest pain, cough or hemoptysis. Denies orthopnea. Cardiovascular Denies anginal chest pain, palpitations or orthopnea. Gastrointestinal Denies nausea, vomiting, GI bleeding, or constipation. Denies change in bowel habits and/or stool color, no heartburn or early satiety. Diarrhea resolved currently. Genitourinary (F) No hematuria, hesitancy, incontinence, vaginal bleeding, discharge or other problems with urination. Musculoskeletal Denies joint pain, swelling or redness. No decreased range of motion. Integumentary Denies chronic rashes, inflammation, ulcerations or skin changes. Neurologic Denies headache, blurred vision, and no areas of focal weakness or numbness. Normal gait. No sensory problems. Psychiatric Denies insomnia, depression, carole or mood swings. Vital Signs: Performed on Oct 15, 2019 09:28 Height - 71.50 in Weight - 225.2 lbs (LOW) BSA - 2.23 sq.m BMI - 30.97 (HIGH) Temperature - 97.6 F (LOW) Pulse - 119 /min (HIGH) Respiration - 24 /min BP - 160/70 mm(hg) (HIGH) O2 Sat - 96 % Pain - 5,1 - No physically strenuous activity, but ambulatory and able to carry out light or sedentary work (e.g. office work, light house work). (ECOG) Physical Examination: Constitutional Alert, oriented, no acute distress. Skin pink, warm and dry. Head Normocephalic; atraumatic. Eyes Conjunctivae and sclerae are clear and without icterus. Pupils are reactive and equal. Neck No jugular venous distension. Hematologic/Lymphatic No petechiae or purpura. Chest Right sided venous access device has healed well and is unremarkable. Back/Spine Non-tender to palpation. Extremities No visible deformities, no cyanosis, clubbing or edema. Musculoskeletal No tenderness or swelling, normal range of motion without obvious weakness. Integumentary No rashes or lesions. Neurologic No sensory or motor deficits, normal cerebellar function, normal gait. Psychiatric Alert and oriented times three. Coherent speech. Verbalizes understanding of our discussions today. Laboratory:Test performed on Oct 15, 2019 08:30 Magnesium 1.2 mg/dL Sodium 138 mmol/L Potassium 3.4 mmol/L Chloride 100 mmol/L CO2 26 mmol/L Anion Gap 15.4 BUN 9 mg/dL Creatinine 0.5 mg/dL Cr Clearance (Est) 211.2400 mL/min eGFR 127.6 mL/min Glucose 299 mg/dL Calcium 9.1 mg/dL Protein, Total 5.7 g/dL Albumin 3.0 g/dL Globulin 2.7 g/dL Bilirubin, Total 0.2 mg/dL ALT (SGPT) 11 U/L AST (SGOT) 15 U/L Alkaline Phosphatase 97 IU/L WBC 8.1 10 3/uL RBC 2.97 10 6/uL HGB 10.0 g/dL HCT 31.0 % MCV 104.4 fL MCH 33.7 pg MCHC 32.3 g/dL RDW 16.0 % Platelet Count 328 10 3/cmm MPV 9.8 fL Neutrophils 5.2 10 3/uL Lymphocytes 2.2 10 3/uL Monocytes 0.7 10 3/uL Eosinophils 0.0 10 3/uL Basophils 0.0 10 3/uL Neutrophil % 64.3 % Lymphocyte % 26.7 % Monocyte % 8.0 % Eosinophil % 0.0 % Basophils % 0.5 % CBC Slide Review Slide Review Perform SLIDE REVIEW AGREES WITH AUTOMATED RESULTS ST Test performed on Sep 24, 2019 08:17 Folate 11.0 ng/mL Homocysteine 5.07 umol/L Vitamin B12 1242 pg/mL Methylmalonic Acid 179 nmol/L Impression: 1. Patient with grade 2 infiltrating ductal carcinoma of the left breast, Stage IB (T2, N1, M0), ER/MA positive and HER-2/kelsie positive. Staging PET/CT was requested but delayed because of insurance issues. 2. She underwent ultrasound-guided needle biopsy of left breast mass on 05/08/2019, and she underwent ultrasound-guided needle biopsy of left axillary lymph node on 05/22/2019. Her other medical illnesses include: 3. Hypertension. 4. Type II diabetes. 5. Peripheral neuropathy. 6. GERD. 7. Hypothyroidism. 8. History of emphysematous pyelonephritis. She began cycle 1 of neoadjuvant TCH-P on 06/11/2019. Her treatment was complicated by headache and dizziness, nausea/vomiting, diarrhea, and stomatitis. She sustained a fracture to the right proximal humerus when she passed out at home on day 3. She required hospitalization for IV hydration at day 6. Her symptoms subsequently improved, but she then sustanined a fracture to the proximal left humerus when she stepped in a hole and fell. Both fractures have been managed conservatively. She was able to continue with cycle 2 of her chemotherapy on 07/02/2019, with cycle 3 on 07/23/2019, with cycle 4 on 08/13/2019, and with cycle 5 on 09/03/2019. She has been able to tolerate the chemotherapy better with scheduled IV hydration daily for the duration of the first week of the cycle. She has continued, though, to have significant weakness/fatigue and some lightheadedness. She also has been having shortness of breath with activity, and she continues to have some diarrhea. Her neuropathy, though, has been stable, and overall she has been able to tolerate the chemotherapy with acceptable toxicity. She completed 6 cycles of TCH-P on 09/24/2019. She was [place] [facility] [place] with dehydration and anorexia. She also had significant diarrhea at that time. She was discharged on October 11, 2019 after receiving supportive care and IV Flagyl and Zosyn for concerns of infectious diarrhea. She had received Augmentin just recently prior to that admission so there was concern for C. difficile. C. difficile was negative the diarrhea did continue that was suspected to be due to the The diarrhea did resolved with antidiarrhea use and Mrs Sheppard states she has recovered at this point. She is scheduled to see Dr Nice later this week to determine surgery dates. Plan: 1. Will decide on resuming Herceptin/Perjeta-3 week dosing when we know when surgery is scheduled. 2. Supportive care in the interim as needed. 3. Labs from today were reviewed in detail discussed with Ms. Sheppard and a copy was given to her. WBC 8.1, hemoglobin 10, platelets 328,000 ANC is 5200. Potassium 3.4 magnesium 1.2 random glucose 299 and LFTs are normal creatinine is 0.5. 4. We will have her start Mag-Ox 400 mg twice daily but to watch for diarrhea if she has diarrhea she will stop the magnesium. 5. She is currently taking potassium supplements and we can have her try twice a day again unless she has diarrhea then to resume her normal dosing. 6. We will refill her Diflucan as she has had some yeast symptoms since discharge. 7. We will determine further follow-up and treatment plan once we see what her surgery schedule is. 8. Shila was instructed to contact us in the interim should questions or problems arise. Thus far she is doing well post discharge. ADDENDUM: Results called to tell us that her surgery scheduled for November 08, 2019. Consulted with Dr. Cuellar and we will set her up for 3-week Herceptin/Perjeta this Tuesday. She will then resume the 3-week Herceptin/Perjeta 1 week post op if all goes well. Shila is aware and will see her Tuesday. She is instructed to call us in the interim should questions or problems arise. Signed By: Walter Green-, AOCNP Preston Cuellar MD <<Signature on File>>
[2019-10-19] MEDS: acetaminophen 325 mg Tablet 650 MG PO (08:50)
[2019-10-19] MEDS: sodium chloride 0.9% 250 ML 75 ML IV (08:54)
== END 2019-11-03 23:59 | disposition home or self-care (01) ==
LOC: ONCMED 05:44
PROVIDERS: Absent Provider Internal Medicine Medical Oncology; Family Provider Family Medicine; PCP Family Medicine; Visit Provider Nurse Practitioner
DX: Z51.12 Encounter for antineoplastic immunotherapy (principal); C50.812 Malignant neoplasm of overlapping sites of left female breast; Z17.0 Estrogen receptor positive status [ER+]; I10 Essential (primary) hypertension; E11.42 Type 2 diabetes mellitus with diabetic polyneuropathy; K21.9 Gastro-esophageal reflux disease without esophagitis; F17.210 Nicotine dependence, cigarettes, uncomplicated; E89.0 Postprocedural hypothyroidism; Z79.891 Long term (current) use of opiate analgesic; Z79.4 Long term (current) use of insulin; Z79.899 Other long term (current) drug therapy
CPT/HCPCS: 36591; 80053; 83735; 85025; 96367; 96413; 96417; 99214; J1200; J3490; J7050; J9306; J9355

== ENCOUNTER 2019-11-08 08:00 | Day surgery (SDC) | payer BC, SELFPAY ==
[2019-11-08 13:21] LABS: Glucose Point of Care 254 mg/dL (70-110)
== END 2019-11-08 09:00 | disposition home or self-care (01) ==
LOC: OR 04-22 12:19
PROVIDERS: PCP Family Medicine; Visit Provider Surgery
DX: C50.912 Malignant neoplasm of unspecified site of left female breast (principal)
CPT/HCPCS: 36416; 82962

== ENCOUNTER 2019-11-08 15:22 | Observation (INO) | payer BC, SELFPAY ==
[2019-11-07 15:37] VITALS: BMI 31.4
[2019-11-08] VITALS (25 sets, daily range): BP systolic 109–186; BP diastolic 59–104; PULSE 89–109; RESP 15–20; TEMP 36.2–37.2; O2SAT 91–99
[2019-11-08] MEDS: sodium chloride 0.9% 1,000 ML 30 ML IV (11:05)
[2019-11-08 11:21] LABS: Basophils # 0.1 10^3/uL (0.0-0.1); Basophils % 0.7 %; Eosinophils # 0.1 10^3/uL (0.0-0.8); Eosinophils % 0.8 %; Hematocrit 38.4 % (37.0-47.0); Hemoglobin 12.5 g/dL (11.5-15.3); Lymphocytes # 2.8 10^3/uL (0.8-4.8); Lymphocytes % 31.5 %; Mean Corpuscular HGB Conc 32.6 g/dL (30.0-36.0); Mean Corpuscular Hemoglobin 33.2 pg (28.0-34.0); Mean Corpuscular Volume 102.1 fL (81-99); Mean Platelet Volume 10.5 fL (7.4-10.4); Monocytes # 0.6 10^3/uL (0.2-0.9); Monocytes % 7.2 %; Neutrophils # 5.2 10^3/uL (1.8-7.7); Neutrophils % 59.5 %; Nucleated Red Blood Cells % 0 %; Platelet Count 257 10^3/cmm (130-400); Red Blood Count 3.76 10^6/uL (4.1-5.3); Red Cell Distribution Width 13.2 % (12.1-15.1); White Blood Count 8.8 10^3/uL (4.0-10.0)
[2019-11-08 11:34] LABS: Anion Gap 17.3 (5-19); Blood Urea Nitrogen 15 mg/dL (6-20); Calcium 9.6 mg/dL (8.5-10.5); Carbon Dioxide 23 mmol/L (22-29); Chloride 104 mmol/L (98-107); Glomerular Filtration Rate 127.6 mL/min (90-130); Glucose 246 mg/dL (65-115); Osmolality Calculated 294 mOsm/kg (285-295); Potassium 4.3 mmol/L (3.5-5.1); Sodium 140 mmol/L (136-145)
--- NOTE | 2019-11-08 12:00 | ANES.PREANE2 ---
Pre-Anesthetic Assessment Pre-Anesthetic Assessment: Height/Weight: Height 1.8 m Weight 102.058 kg Temp Pulse Resp BP Pulse Ox 97.2 F L 101 H 18 165/86 97 11/08/19 10:40 11/08/19 10:40 11/08/19 10:40 11/08/19 10:40 11/08/19 10:40 Preop Diagnosis: left breast cancer Proposed Procedure: Operation Date: 11/08/19 12:00 Proposed Procedures p Mastectomy Radical/Modified(Left) - Godwin Nice MD s Mastectomy Simple(Right) - Godwin Nice MD Last intake: Intake Last Liquid Date 11/07/19 Last Liquid Time 21:00 Last Solid Date 11/07/19 Last Solid Time 21:00 Social: Packs per day: 1/2 Pack years: 25 Exam: Pre-Anes Outpt Exam: alert, oriented x 3, clear to auscultation bilaterally and regular rate & rhythm Airway: Submandibular: WNL Cervical ROM: WNL MP: 2 CV/HEM: CV/HEM: HTN Comments: 1y 2 blocks/2FOS without angina/MURPHY GI: GI: GERD Metabolic: Metabolic: DM Comments: rx'd x 32, normally 200-400 replacement x 1y Anesthetic Plan: ASA status: 3 Anesthesia: General Meds/Allergies Current Medications: Current Medications Generic Name Dose Route Start Last Admin Trade Name Freq PRN Reason Stop Dose Admin Sodium Chloride 1,000 mls @ 30 ml s/hr 11/08/19 10:30 11/08/19 11:05 Sodium Chloride 0.9% IV 11/09/19 10:29 30 mls/hr .Q24H KEN Administration PFSH Anesthesia PFSH: Medical History (Updated 11/07/19 @ 15:27 by Yenni Cortez) Chronic diarrhea Emphysematous pyelonephritis GERD (gastroesophageal reflux disease) Hypertension Hypothyroidism Infiltrating ductal carcinoma Influenza Mouth ulcers Peripheral neuropathy Smoker Type 2 diabetes mellitus Surgical History (Updated 11/07/19 @ 15:27 by Yenni Cortez) H/O unilateral oophorectomy H/O vaginal hysterectomy Social History Smoking and tobacco status: current every day smoker Data Anesthesia CBC & Chem 7: 11/08/19 11:08 11/08/19 11:08 Other Labs: Laboratory Results - last 48 hr 11/08/19 11/08/19 11:08 11:08 WBC 8.8 RBC 3.76 L Hgb 12.5 Hct 38.4 MCV 102.1 H MCH 33.2 MCHC 32.6 RDW 13.2 Plt Count 257 MPV 10.5 H Neut % (Auto) 59.5 Lymph % (Auto) 31.5 [place] % (Auto) 7.2 Eos % (Auto) 0.8 Baso % (Auto) 0.7 Neut # (Auto) 5.2 Lymph # (Auto) 2.8 [place] # (Auto) 0.6 Eos # (Auto) 0.1 Baso # (Auto) 0.1 Nucleated RBC % (auto) 0 Nucleated RBCs # 0.0 Sodium 140 Potassium 4.3 Chloride 104 Carbon Dioxide 23 Anion Gap 17.3 BUN 15 Creatinine 0.5 GFR Calculation 127.6 Glucose 246 H Calculated Osmolality 294 Calcium 9.6 Cardiac Studies: No Data to Display
--- NOTE | 2019-11-08 12:21 | W.PM.OPSUD ---
Surgery/Procedure H&P Update DATE OF PROCEDURE: November 08, 2019 DATE H&P PERFORMED: 10/30/19 H&P UPDATE INFORMATION: I have reviewed H&P completed within last 30 days and No changes to prior documentation PREOP DIAGNOSIS: left breast cancer PLANNED PROCEDURE: Operation Date: 11/08/19 12:00 Proposed Procedures p Mastectomy Radical/Modified(Left) - Godwin Nice MD s Mastectomy Simple(Right) - Godwin Nice MD
[2019-11-08] MEDS: neomycin-poly-bacitracin oint 28 gm 1 APPLIC TOPICAL (14:08)
--- NOTE | 2019-11-08 14:25 | P.OP_ITS ---
Operative Report Date of procedure: November 08, 2019 Pre-op Diagnosis: Infiltrative left breast cancer, status post neoadjuvant therapy. Post-op diagnosis: same Procedure Done: 1. Left modified radical mastectomy. 2. Right simple (prophylactic) mastectomy. Specimens removed/disposition: 1. Left breast with axillary contents. 2. Right breast. Surgeon: Gdowin Nice Anesthesia: General Estimated blood loss (mL): 50 Complications: None. Condition: stable Disposition: PACU Procedure: The patient was brought to the operating room and was placed in a supine position on the operating room table. General endotracheal anesthesia was induced. The chest/breasts and axillae were prepped and draped in a sterile fashion. Attention was first directed to the left side. An elliptical incision was carried out from the sternum, surrounding the entire nipple areolar complex and coming back together at the inferior aspect of the axilla. Cautery was used to divide the dermis and was used to maintain hemostasis throughout the procedure. Skin flaps were created both superiorly and inferiorly by elevating the skin with skin hooks and using cautery to divide the breast tissue at the junction of the breast tissue and subcutaneous fat. This was carried out down to the chest wall both superiorly and inferiorly as well as medially, encompassing all of the breast tissue. The breast was then taken off of the chest wall using cautery from a medial to lateral direction. Significant vessels seen during the dissection were ligated with ties of 2-0 Vicryl. The dissection was then carried out around the lateral edge of the pectoralis muscle and the axilla was entered. Medially, the dissection was carried out along the chest wall and the long thoracic nerve was identified. The dissection was carried out laterally and posteriorly and the thoracodorsal vessels and nerve were identified. The tissue anterior to the nerves was brought inferiorly, once again ligating vessels with ties of 2-0 Vicryl. There were several firm lymph nodes palpable within the axillary tail/specimen. The specimen was removed. The entire wound was irrigated and some small bleeding points were controlled with cautery. A 19 Swedish fluted Patricio drain was brought through a separate stab incision underneath the incision laterally under the axilla. The drain was sewn in at the skin using a suture of 2-0 silk. The drain was laid along the axilla and up along the anterior chest wall under the skin flaps. The dermis at the incision was brought back together using multiple inverted interrupted sutures of 3-0 Vicryl and the skin was finally approximated using skin penelope. Attention was directed to the right side. An identical procedure was carried out regarding the mastectomy. No axillary dissection was needed/performed on the right side, however. The procedure otherwise including the drain placement and closure was identical. Some triple antibiotic ointment was placed over the incisions and sterile fluff dressings and a postmastectomy bra were then placed. The patient was subsequently taken to the recovery room in stable condition postoperatively.
[2019-11-08] MEDS: fentaNYL 50 mcg/mL INJ 2mL IVP ×2 (14:57→15:02)
[2019-11-08] MEDS: sodium chlor 0.45% +KCl 20 mEq 20 MEQ/1,000 ML BAG 100 MEQ IV (15:49)
[2019-11-08] MEDS: heparin 5,000 unit/mL INJ 1 mL 5000 UNIT SUBCUT (15:49)
[2019-11-08] MEDS: oxyCODONE 5 mg IR Tab/Cap PO ×2 (16:01→20:23)
[2019-11-08] MEDS: levalbuterol 0.63 mg/3 mL Neb INHALATION ×2 (16:21→20:14)
[2019-11-08] MEDS: guaiFENesin 600 mg Tablet PO (17:18)
[2019-11-08] MEDS: fluticasone nasal spray 16gm Btl 1 SPRAY INTRANASAL (17:18)
[2019-11-08 17:38] LABS: Glucose Point of Care 405 mg/dL (70-110)
--- NOTE | 2019-11-08 18:27 | NUR.SHIFT ---
PATIENT HAS DONE VERY WELL TODAY. PAIN HAS BEEN CONTROLLED. GOOD URINE OUTPUT AND PO INTAKE. PATIENT HAS HAD 80ML OF OUTPUT IN LEFT MARCIE DRAIN AND 15ML IN THE RIGHT. PATIENT BG AND BP HAVE BEEN ELEVATED. PATIENT STATED THAT IS NORMAL FOR HER. NO COMPLAINTS AT THIS TIME.
[2019-11-08] MEDS: ceFAZolin 1,000 MG in sodium chloride 0.9% (plus) 50 ML 100 MG IV (20:25)
--- NOTE | 2019-11-08 20:34 | PC.NURSE ---
pt reported she is ambulating well and doesn't feel like wearing them at this time.
[2019-11-08 21:11] LABS: Glucose Point of Care 294 mg/dL (70-110)
[2019-11-09] VITALS (9 sets, daily range): BP systolic 109–169; BP diastolic 52–73; PULSE 93–102; RESP 16–18; TEMP 36.6–36.7; O2SAT 93–97
[2019-11-09] MEDS: TRAMadol 50 mg Tablet PO (00:56)
[2019-11-09] MEDS: sodium chlor 0.45% +KCl 20 mEq 20 MEQ/1,000 ML BAG 100 MEQ IV (01:00)
[2019-11-09] MEDS: levalbuterol 0.63 mg/3 mL Neb INHALATION ×2 (02:21→09:03)
[2019-11-09] MEDS: heparin 5,000 unit/mL INJ 1 mL 5000 UNIT SUBCUT (03:58)
[2019-11-09] MEDS: ceFAZolin 1,000 MG in sodium chloride 0.9% (plus) 50 ML 100 MG IV (03:58)
[2019-11-09 06:34] LABS: Glucose Point of Care 276 mg/dL (70-110)
[2019-11-09] MEDS: oxyCODONE 5 mg IR Tab/Cap PO (07:32)
[2019-11-09] MEDS: duloxetine 60 mg Capsule PO (08:31)
[2019-11-09] MEDS: pantoprazole DR 40 mg Tablet PO (08:31)
[2019-11-09] MEDS: loratadine 10 mg Tablet PO (08:31)
[2019-11-09] MEDS: guaiFENesin 600 mg Tablet PO (08:32)
[2019-11-09] MEDS: levothyroxine 50 mcg Tablet PO (08:32)
[2019-11-09] MEDS: dronabinol 2.5 mg Capsule PO (08:32)
[2019-11-09] MEDS: losartan 50 mg Tablet 25 MG PO (08:32)
[2019-11-09] MEDS: fluticasone nasal spray 16gm Btl 1 SPRAY INTRANASAL (08:33)
--- NOTE | 2019-11-09 09:10 | PM.DCS ---
Discharge Providers Date of Admission: 11/08/19 15:22 Date of Discharge: November 09, 2019 Attending Provider at Admission: Godwin Nice MD Attending Provider at Discharge: Godwin Nice MD Primary Care Provider: Fernando Sheppard MD Diagnoses at Discharge Discharge Diagnosis (1) Breast cancer, left: Status: Resolved Problem details: Status post left modified radical mastectomy and right simple (prophylactic) mastectomy. Reason for Visit Reason for Visit: Reason For Visit: Left Breast Cancer Hospital Course Discharge Summary: This is a 54-year-old white female with HER-2 positive left breast cancer. She has undergone neoadjuvant treatment. She was brought into the hospital on 11/08/2019 and underwent a left modified radical mastectomy as well as a right simple (prophylactic) mastectomy. By the following morning she was somewhat sore but was anxious to go home. Her vital signs were stable. She was instructed with respect to wound care, activity limitations, etc. An appointment will be made for her to follow-up with me in the office as an outpatient. Physical Exam Narrative: EXAM NARRATIVE: Dressing remains intact. The left Patricio drain has some serosanguineous fluid in the bulb. The right Patricio drain has a small amount of sanguinous fluid in the bulb. Discharge Data Data Completed and Pending: Pending at discharge Category Date Time Status Pathology: Surgic al [PTH] Routine Pth 11/08/19 13:52 Received Labs from last 24 hours 11/09/19 11/08/19 11/08/19 06:32 21:08 17:10 WBC RBC Hgb Hct MCV MCH MCHC RDW Plt Count MPV Neut % (Auto) Lymph % (Auto) [place] % (Auto) Eos % (Auto) Baso % (Auto) Neut # (Auto) Lymph # (Auto) [place] # (Auto) Eos # (Auto) Baso # (Auto) Nucleated RBC % (a uto) Nucleated RBCs # Sodium Potassium Chloride Carbon Dioxide Anion Gap BUN Creatinine GFR Calculation Glucose POC Glucose 276 294 405 Calculated Osmolal ity Calcium 11/08/19 11/08/19 11:08 11:08 WBC 8.8 RBC 3.76 L Hgb 12.5 Hct 38.4 MCV 102.1 H MCH 33.2 MCHC 32.6 RDW 13.2 Plt Count 257 MPV 10.5 H Neut % (Auto) 59.5 Lymph % (Auto) 31.5 [place] % (Auto) 7.2 Eos % (Auto) 0.8 Baso % (Auto) 0.7 Neut # (Auto) 5.2 Lymph # (Auto) 2.8 [place] # (Auto) 0.6 Eos # (Auto) 0.1 Baso # (Auto) 0.1 Nucleated RBC % (a uto) 0 Nucleated RBCs # 0.0 Sodium 140 Potassium 4.3 Chloride 104 Carbon Dioxide 23 Anion Gap 17.3 BUN 15 Creatinine 0.5 GFR Calculation 127.6 Glucose 246 H POC Glucose Calculated Osmolal ity 294 Calcium 9.6 Vitals: Last Vital Signs Temp 97.9 F 11/09/19 08:00 Pulse 99 11/09/19 08:00 Resp 16 11/09/19 08:00 BP 169/73 11/09/19 08:32 Pulse Ox 94 11/09/19 08:00 Discharge Plan Discharge Patient Disposition: Home, Self-Care Condition: Stable Prescriptions: Continued magnesium oxide 400 mg magnesium capsule 400 mg PO DAILY RF: 0 potassium chloride 10 mEq capsule, extended release 20 meq PO DAILY RF: 0 (DME) BONE STIMULATOR Qty: 1 RF: 0 prochlorperazine maleate [Compazine] 5 mg Tablet 5 mg PO QID PRN (Reason: Nausea) RF: 0 ondansetron HCl [Zofran] 4 mg Tablet 4 mg PO Q6H PRN (Reason: Nausea) RF: 0 tramadol 50 mg Tablet 50 mg PO Q4H PRN (Reason: Pain) RF: 0 pantoprazole [Protonix] 20 mg Tablet,Delayed Release (Dr/Ec) 20 mg PO DAILY RF: 0 alprazolam [Xanax] 0.5 mg Tablet 0.5 mg PO Q4H PRN (Reason: Anxiety) RF: 0 levothyroxine 50 mcg Tablet 50 mcg PO DAILY RF: 0 losartan 25 mg Tablet 25 mg PO DAILY RF: 0 fluticasone propionate [Flonase Allergy Relief] 50 mcg/actuation [place],Suspension 1 spray INTRANASAL BID RF: 0 loratadine [Claritin] 10 mg Tablet 10 mg PO DAILY RF: 0 duloxetine 30 mg Capsule,Delayed Release(Dr/Ec) 30 mg PO DAILY RF: 0 duloxetine 60 mg Capsule,Delayed Release(Dr/Ec) 60 mg PO DAILY RF: 0 guaifenesin [Mucinex] 600 mg Tablet Extended Release 12hr 600 mg PO BID RF: 0 oxycodone [OxyContin] 10 mg Tablet,Oral Only,Ext.Rel.12 Hr 10 mg PO Q4H PRN (Reason: Pain) RF: 0 insulin lispro [Humalog KwikPen Insulin] 100 unit/mL insulin pen 15 unit SUBCUT DAILY RF: 0 dronabinol [Marinol] 2.5 mg Capsule 2.5 mg PO DAILY RF: 0 Levemir FlexTouch U-100 Insuln 100 unit/mL (3 mL) insulin pen 40 unit SUBCUT DAILY Qty: 0 RF: 0 oseltamivir [Tamiflu] 30 mg Capsule 30 mg PO DAILY RF: 0 Discharge Orders: Discharge Order (Routine); Ordered 11/09/19 Ordered By: Godwin Nice Referrals: Godwin Nice MD [Physician] - 2 weeks Discharge Diet: Advance as tolerated Discharge Activity: Increase activity as tolerated Activity Restrictions/Additional Instructions: 1. Discharge to home today. 2. Appointment to see me in 10-14 days. 3. Bandage may be removed as early as today to shower. Keep postmastectomy garment on when not bathing as discussed. 4. Nursing: Please teach patient how to empty Patricio drain and reconstitute bulb. Empty Patricio drain at home as needed. 5. When dressing is off daily, manually massage/press on the areas around the incision to flatten out any ripples or ridges that may be developing to keep the skin flat. Discharge Attestations Time Spent in Discharge Care*: less than 30 min Quality Metrics Clinical Quality Measures During this hospital stay, did patient experience: None Coding Level of Care Code Acute Medication Administration Professional for [facility] Fwd Diagnoses Breast cancer, left C50.912
--- NOTE | 2019-11-09 09:50 | ANE.PACU2 ---
 Inpatient post-anesthesia follow up: Airway intact: Yes Vital signs: Temperature 97.9 F Pulse Rate 99 Respiratory Rate 16 Blood Pressure 169/73 Pulse Oximetry 97 Oxygen Delivery Me thod Room Air Oxygen Flow Rate 8 Fraction of Inspir ed Oxygen Hydration adequate: Yes Nausea and vomiting: No Mental status: Baseline
== END 2019-11-09 09:47 | disposition home or self-care (01) ==
LOC: MEDSURG 15:22
PROVIDERS: Admitting Provider Surgery; Family Provider Family Medicine; PCP Family Medicine; Visit Provider Surgery
PROC: (CPT 19303; principal; 2019-11-08 12:00)
PROC: (CPT 19303; 2019-11-08 12:00)
DX: C50.912 Malignant neoplasm of unspecified site of left female breast (principal); K21.9 Gastro-esophageal reflux disease without esophagitis; I10 Essential (primary) hypertension; E11.42 Type 2 diabetes mellitus with diabetic polyneuropathy; Z79.4 Long term (current) use of insulin; F17.210 Nicotine dependence, cigarettes, uncomplicated
CPT/HCPCS: 19303; 19305; 12345; 36415; 36416; 80048; 82962; 85025; 88309; 94640; 96360; 96361; 96365; 96372; 96375; G0378; J0690; J1644; J1815; J2001; J2370; J2405; J2704; J3010; J3490; J7030; J7614; Q0167

== ENCOUNTER 2019-11-15 06:06 | Outpatient (RCR) | payer BC, SELFPAY ==
[2019-11-15 09:49] LABS: Basophils # 0.1 10^3/uL (0.0-0.1); Basophils % 0.7 %; Eosinophils # 0.4 10^3/uL (0.0-0.8); Eosinophils % 3.7 %; Hematocrit 36.8 % (37.0-47.0); Hemoglobin 11.8 g/dL (11.5-15.3); Lymphocytes # 1.9 10^3/uL (0.8-4.8); Lymphocytes % 19.5 %; Mean Corpuscular HGB Conc 32.1 g/dL (30.0-36.0); Mean Corpuscular Hemoglobin 33.1 pg (28.0-34.0); Mean Corpuscular Volume 103.1 fL (81-99); Mean Platelet Volume 10.5 fL (7.4-10.4); Monocytes # 0.6 10^3/uL (0.2-0.9); Monocytes % 5.9 %; Neutrophils # 6.8 10^3/uL (1.8-7.7); Neutrophils % 69.9 %; Nucleated Red Blood Cells % 0 %; Platelet Count 307 10^3/cmm (130-400); Red Blood Count 3.57 10^6/uL (4.1-5.3); Red Cell Distribution Width 12.8 % (12.1-15.1); White Blood Count 9.8 10^3/uL (4.0-10.0)
[2019-11-15 10:02] LABS: Alanine Aminotransferase 18 U/L (0-33); Albumin Level 3.3 g/dL (3.5-5.2); Alkaline Phosphatase 143 IU/L (35-105); Anion Gap 14.1 (5-19); Aspartate Amino Transferase 19 U/L (0-32); Blood Urea Nitrogen 11 mg/dL (6-20); Calcium 9.3 mg/dL (8.5-10.5); Carbon Dioxide 26 mmol/L (22-29); Chloride 102 mmol/L (98-107); Globulin 3.7 g/dL (1.3-4.6); Glomerular Filtration Rate 103.4 mL/min (90-130); Glucose 312 mg/dL (65-115); Osmolality Calculated 294 mOsm/kg (285-295); Potassium 4.1 mmol/L (3.5-5.1); Sodium 138 mmol/L (136-145); Total Bilirubin 0.2 mg/dL (0.15-1.2)
[2019-11-15] MEDS: sodium chloride 0.9% 250 ML 75 ML IV (10:55)
[2019-11-15] MEDS: acetaminophen 325 mg Tablet 650 MG PO (11:05)
[2019-11-15 11:10] LABS: Magnesium 1.7 mg/dL (1.7-2.3)
--- NOTE | 2019-11-18 13:45 | ONC FU_ITS ---
Dr. Cuellar Patient Follow-Up Note Patient: Shila Sheppard Unit #: [id number]: [id number] Dicatated By: Preston Cuellar M.D.Date of Visit:Nov 15, 2019 Onc Med Follow-up/Prog Note Chief Complaint: Breast cancer. History of Present Illness: This is a 54 year-old woman with grade 3 infiltrating ductal carcinoma of the left breast, ER/MT positive and HER-2/kelsie positive. By clinical and pathologic evaluation and with ER/MT and HER-2/kelsie positive disease, she is stage IB (T2, N1, M0). She had presented with a palpable mass in the left breast, first noticed a month to a month and a half ago. Bilateral diagnostic mammogram with limited ultrasound of the left breast on 04/17/2019 was BI-RADS category 5, highly suspicious of malignancy. Findings included an irregular marginated spiculated soft tissue mass in the posterior inferior left breast at the 6 o'clock position measuring 3.3 x 2.8 cm. The underlying skin appeared retracted and thickened. There are no abnormalities noted in the right breast. Ultrasound-guided biopsy of the left breast mass on 05/08/2019 showed grade 2 infiltrating ductal carcinoma. The best prognostic profile showed ER positive at 87% and MT positive at 41%. The tumor was positive for overexpression of HER-2/kelsie, 3+ by IHC and amplification ratio by FISH of 3.8 with 13.3 HER-2 copies/cell. The Ki-67 was unfavorable at 24%. I had seen her initially on 05/18/2019. She was recommended to undergo neoadjuvant chemotherapy with TCH-P. Her baseline echocardiogram showed normal LV function with estimated ejection fraction 65%. Staging PET/CT also was recommended but delayed because of insurance issues. Her other medical illnesses include hypertension, type II diabetes with peripheral neuropathy, GERD, and hypothyroidism. She has a history of emphysematous pyelonephritis. Her surgical history includes vaginal hysterectomy with unilateral oophorectomy in 2008. She does not recall ever having hot flashes or other indications of menopause. She has a history of smoking 1/2 pack of cigarettes daily for 30 years. INTERIM HISTORY: She began cycle 1 of TCH-P on 06/11/2019. She was given first cycle prophylaxis with Neulasta. Her treatment was complicated by severe headache and dizziness for several days and subsequently by nausea/vomiting and diarrhea. On day 3 she passed out at home, sustaining a fracture to the proximal right humerus. At day 6 she was admitted to the hospital because of intractable nausea and diarrhea. The maximum diarrhea was estimated at 6 stools per day. She also developed sore mouth, which lasted for about a week. She was very weak generally and had poor appetite for the first 2 weeks. During the last week of the cycle she had started to feel a lot better, but she then fell again when she stepped in a hole and she sustained a fracture to her proximal left humerus. Both fractures have been managed conservatively. She then proceeded with cycle 2 of her chemotherapy on 07/02/2019. With that cycle she was given scheduled hydration, but her dosages remained the same. She was able to tolerate it with acceptable toxicity. She then continued with cycle 3 on 07/23/2019, with cycle 4 on 08/13/2019, with cycle 5 on 09/03/2019, and with cycle 6 on 09/24/2019. During that time, she required frequent hydration, but she continued to tolerate the chemotherapy with acceptable toxicity. She returned on 10/19/2021 continue her systemic adjuvant therapy with Herceptin/Perjeta at the 3-week dosing schedule. On 11/08/2019 she underwent left modified radical mastectomy and right simple mastectomy. Pathology on the left breast showed sclerotic mass measuring 1.4 x 2.0 x 0.7 cm, but with no residual carcinoma and no involvement in 12 axillary lymph nodes, consistent with complete response to neoadjuvant therapy. The right breast showed benign pathology. She is seen for a follow-up visit. She has been feeling remarkably good since her surgery. She says her energy has been back to normal, and she is already working full-time. Her ECOG score is 0. She has good appetite. She has not had fever or hot flashes, but she does have night sweating. She had one episode of lightheadedness yesterday. She has no shortness of breath, cough, or chest pain. She currently has no GI or complaints. She continues to have pain with some limitation in movement at the right shoulder/arm. She has no other joint or bone pain. She has neuropathy in her feet, but that has stayed about the same. Medications: DULoxetine HCl 1 Capsule (of 60 mg) Capsule Delayed Release Particles Oral daily, DULoxetine HCl 1 Capsule (of 30 mg) Capsule Delayed Release Particles Oral daily, Levemir 40 Units (of 100 Units/mL) Subcutaneous b.i.d., Levo-T 1 Tablet (of .5 mcg) Oral daily, Losartan Potassium 1 Tablet (of 25 mg) Oral daily, Marinol 1 Capsule (of 2.5 mg) Oral b.i.d. PRN, NovoLOG 15 Units (of 100 Units/mL) Subcutaneous t.i.d., oxyCODONE HCl 1 Tablet (of 10 mg) Oral four times a day PRN, Polytrim 1 Drop(s) (of 40923-3.1 Units/mL - %) Solution Ophthalmic q 3 hours PRN, Protonix 1 Tablet (of 20 mg) Tablet, enteric coated Oral daily, traMADol HCl 1 - 2 tablespoonful(s) (of 50 mg) Tablet Oral q 6 hours PRN Allergies: NORBERTO Inhibitors, NSAIDs, and Ozempic. Review of Systems: Constitutional - Her energy is back to normal. 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 Her appetite is good and weight is stable. No fever or chills. She has occasional hot flashes and sweating. ECOG score is 0, ENMT - She has chronic sinus congestion/drainage. No mouth sores. No sore throat or difficulty swallowing, Hematologic/Lymphatic - No abnormal bruising, Breasts - She has some mild bleeding controlled to her surgical site. Drains are still in place. , Respiratory - No shortness of breath. No cough. No pleuritic pain or hemoptysis, Cardiovascular - No angina pain. No palpitations, Gastrointestinal - No nausea or vomiting. She has heartburn, but it is well controlled with the Protonix. No diarrhea or constipation. No blood in the stool or black stools, Genitourinary (F) - No dysuria or hematuria. No urinary frequency. No urgency or incontinence, Musculoskeletal - She continues to have shoulder pain. She has some post surgical pain, Integumentary - No skin complications, Neurologic - No headache. She another episode of lightheadedness a few days ago. She has neuropathy in her feet that is unchanged, Psychiatric - No anxiety or depression. No insomnia. Vital Signs: Performed on Nov 15, 2019 10:07 Height - 71.50 in Weight - 218.8 lbs (LOW) BSA - 2.20 sq.m BMI - 30.09 (HIGH) Temperature - 97.9 F (LOW) Pulse - 98 /min Respiration - 24 /min Systolic - mm(hg) O2 Sat - 94 % (LOW) Pain - 5 Physical Examination: Constitutional - She looks pretty good generally, Eyes - Sclerae nonicteric. Conjunctivae clear, ENMT - No lesions noted in the oral cavity, Hematologic/Lymphatic - No cervical or clavicular adenopathy, Respiratory - Lungs are clear with good air movement bilaterally, Cardiovascular - Heart rhythm is regular. There is no murmur, gallop, or rub noted, Breasts - The mastectomy incisions look okay. She still has drains in place. There is slight soft tissue swelling in the axillary area. There is no axillary adenopathy noted, Abdomen - Soft. Liver and spleen are not enlarged. There is no abdominal mass or ascites noted and there is no inguinal adenopathy, Extremities - Slight edema at the ankles, Neurologic - No focal neurologic deficits noted. Lab/Imaging: Test performed on Nov 15, 2019 09:08 Magnesium 1.7 mg/dL Sodium 138 mmol/L Potassium 4.1 mmol/L Chloride 102 mmol/L CO2 26 mmol/L Anion Gap 14.1 BUN 11 mg/dL Creatinine 0.6 mg/dL Cr Clearance (Est) 168.8300 mL/min eGFR 103.4 mL/min Glucose 312 mg/dL Calcium 9.3 mg/dL Protein, Total 7.0 g/dL Albumin 3.3 g/dL Globulin 3.7 g/dL Bilirubin, Total 0.2 mg/dL ALT (SGPT) 18 U/L AST (SGOT) 19 U/L Alkaline Phosphatase 143 IU/L WBC 9.8 10 3/uL RBC 3.57 10 6/uL HGB 11.8 g/dL HCT 36.8 % MCV 103.1 fL MCH 33.1 pg MCHC 32.1 g/dL RDW 12.8 % Platelet Count 307 10 3/cmm MPV 10.5 fL Neutrophils 6.8 10 3/uL Lymphocytes 1.9 10 3/uL Monocytes 0.6 10 3/uL Eosinophils 0.4 10 3/uL Basophils 0.1 10 3/uL Neutrophil % 69.9 % Lymphocyte % 19.5 % Monocyte % 5.9 % Eosinophil % 3.7 % Basophils % 0.7 % Impression: 1. Patient with grade 2 infiltrating ductal carcinoma of the left breast, Stage IB (T2, N1, M0), ER/MT positive and HER-2/kelsie positive. Staging PET/CT was requested but delayed because of insurance issues. 2. She underwent ultrasound-guided needle biopsy of left breast mass on 05/08/2019, and she underwent ultrasound-guided needle biopsy of left axillary lymph node on 05/22/2019. Her other medical illnesses include: 3. Hypertension. 4. Type II diabetes. 5. Peripheral neuropathy. 6. GERD. 7. Hypothyroidism. 8. History of emphysematous pyelonephritis. She began cycle 1 of neoadjuvant TCH-P on 06/11/2019. Her treatment was complicated by headache and dizziness, nausea/vomiting, diarrhea, and stomatitis. She sustained a fracture to the right proximal humerus when she passed out at home on day 3. She required hospitalization for IV hydration at day 6. Her symptoms subsequently improved, but she then sustanined a fracture to the proximal left humerus when she stepped in a hole and fell. Both fractures have been managed conservatively. She was able to continue with cycle 2 of her chemotherapy on 07/02/2019, with cycle 3 on 07/23/2019, with cycle 4 on 08/13/2019, with cycle 5 on 09/03/2019, and with cycle 6 on 09/24/2019. During that time, she did receive frequent IV hydration, and she was able to tolerate the chemotherapy with acceptable toxicity. As of 10/19/2019 she continued systemic adjuvant therapy with cycle 1 of Herceptin/Perjeta. On 11/08/2019 she underwent left modified radical mastectomy and right simple mastectomy. Pathology on the left breast showed r a sclerotic mass measuring 1.4 x 2.0 x 0.7 cm, but there was no residual carcinoma in the breast and no involvement in 12 axillary lymph nodes, consistent with complete response to neoadjuvant therapy. The right breast pathology was benign. Plan: She will now continue treatment with Herceptin/Perjeta until she completes a full year of treatment. The dosages and schedule will remain the same. She will return for treatment in 3 weeks and for a follow-up visit in 6 weeks. In the meantime, she will have assessment of baseline bone density, and I also will request laboratory studies to assess her menopausal status. She will then begin adjuvant hormonal therapy, most likely with anastrozole. Signed By: Preston Cuellar M.D. <<Signature on File>>
== END 2019-12-04 23:59 | disposition home or self-care (01) ==
LOC: ONCMED 06:06
PROVIDERS: Absent Provider Internal Medicine Medical Oncology; Family Provider Family Medicine; PCP Family Medicine; Visit Provider Internal Medicine Medical Oncology
DX: Z51.12 Encounter for antineoplastic immunotherapy (principal); C50.812 Malignant neoplasm of overlapping sites of left female breast; E83.42 Hypomagnesemia; M25.511 Pain in right shoulder; Z17.0 Estrogen receptor positive status [ER+]; I10 Essential (primary) hypertension; E11.42 Type 2 diabetes mellitus with diabetic polyneuropathy; K21.9 Gastro-esophageal reflux disease without esophagitis; E03.9 Hypothyroidism, unspecified; F17.210 Nicotine dependence, cigarettes, uncomplicated; Z79.4 Long term (current) use of insulin; Z79.891 Long term (current) use of opiate analgesic; Z79.899 Other long term (current) drug therapy; Z90.710 Acquired absence of both cervix and uterus; Z90.13 Acquired absence of bilateral breasts and nipples
CPT/HCPCS: 73030; 80053; 83735; 85025; 96367; 96413; 96417; 99214; J1200; J3490; J7050; J9306; J9355

== ENCOUNTER → 2019-12-24 08:11 | Outpatient (BNVA) | payer BC, SELFPAY | PROVIDERS: Family Provider Family Medicine; PCP Family Medicine; Visit Provider Specialist | DX: S42.211A Unspecified displaced fracture of surgical neck of right humerus, initial encounter for closed fracture (principal); X58.XXXA Exposure to other specified factors, initial encounter | CPT/HCPCS: 73030 ==

== ENCOUNTER 2019-12-28 06:45 | Outpatient (RCR) | payer BC, SELFPAY ==
[2019-12-07] MEDS: sodium chloride 0.9% 250 ML 75 ML IV (11:15)
[2019-12-07] MEDS: acetaminophen 325 mg Tablet 650 MG PO (11:20)
[2019-12-28 08:24] LABS: Basophils # 0.1 10^3/uL (0.0-0.1); Basophils % 0.8 %; Eosinophils # 0.1 10^3/uL (0.0-0.8); Eosinophils % 1.3 %; Hematocrit 41.5 % (37.0-47.0); Hemoglobin 13.5 g/dL (11.5-15.3); Lymphocytes % 26.1 %; Mean Corpuscular HGB Conc 32.5 g/dL (30.0-36.0); Mean Corpuscular Volume 98.3 fL (81-99); Mean Platelet Volume 10.2 fL (7.4-10.4); Monocytes # 0.5 10^3/uL (0.2-0.9); Monocytes % 6.6 %; Neutrophils # 4.9 10^3/uL (1.8-7.7); Neutrophils % 64.9 %; Nucleated Red Blood Cells % 0 %; Platelet Count 263 10^3/cmm (130-400); Red Blood Count 4.22 10^6/uL (4.1-5.3); White Blood Count 7.6 10^3/uL (4.0-10.0)
[2019-12-28 08:42] LABS: Alanine Aminotransferase 26 U/L (0-33); Alkaline Phosphatase 163 IU/L (35-105); Anion Gap 14.3 (5-19); Aspartate Amino Transferase 21 U/L (0-32); Blood Urea Nitrogen 13 mg/dL (6-20); Calcium 9.2 mg/dL (8.5-10.5); Carbon Dioxide 27 mmol/L (22-29); Chloride 101 mmol/L (98-107); Glomerular Filtration Rate 103.4 mL/min (90-130); Glucose 299 mg/dL (65-115); Osmolality Calculated 293 mOsm/kg (285-295); Potassium 4.3 mmol/L (3.5-5.1); Sodium 138 mmol/L (136-145); Total Bilirubin 0.2 mg/dL (0.15-1.2)
[2019-12-28] MEDS: sodium chloride 0.9% 250 ML 75 ML IV (10:05)
[2019-12-28] MEDS: acetaminophen 325 mg Tablet 650 MG PO (10:10)
[2019-12-28 12:32] LABS: Estmated Average Glucose 189; Hemoglobin A1C 8.2 % (4.0-6.0)
[2019-12-28 12:44] LABS: Thyroid Stimulating Hormone 2.67 uIU/mL (0.27-4.20)
--- NOTE | 2019-12-28 16:31 | ONC FU_ITS ---
Dr. Cuellar Patient Follow-Up Note Patient: Shila Sheppard Unit #: [id number]: 1965 Dicatated By: Preston Cuellar M.D.Date of Visit:Dec 28, 2019 Onc Med Follow-up/Prog Note Chief Complaint: Breast cancer. History of Present Illness: This is a 54 year-old woman with grade 3 infiltrating ductal carcinoma of the left breast, ER/NV positive and HER-2/kelsie positive. By clinical and pathologic evaluation and with ER/NV and HER-2/kelsie positive disease, she is stage IB (T2, N1, M0). She had presented with a palpable mass in the left breast, first noticed a month to a month and a half ago. Bilateral diagnostic mammogram with limited ultrasound of the left breast on 04/17/2019 was BI-RADS category 5, highly suspicious of malignancy. Findings included an irregular marginated spiculated soft tissue mass in the posterior inferior left breast at the 6 o'clock position measuring 3.3 x 2.8 cm. The underlying skin appeared retracted and thickened. There are no abnormalities noted in the right breast. Ultrasound-guided biopsy of the left breast mass on 05/08/2019 showed grade 2 infiltrating ductal carcinoma. The best prognostic profile showed ER positive at 87% and NV positive at 41%. The tumor was positive for overexpression of HER-2/kelsie, 3+ by IHC and amplification ratio by FISH of 3.8 with 13.3 HER-2 copies/cell. The Ki-67 was unfavorable at 24%. I had seen her initially on 05/18/2019. She was recommended to undergo neoadjuvant chemotherapy with TCH-P. Her baseline echocardiogram showed normal LV function with estimated ejection fraction 65%. Staging PET/CT also was recommended but delayed because of insurance issues. Her other medical illnesses include hypertension, type II diabetes with peripheral neuropathy, GERD, and hypothyroidism. She has a history of emphysematous pyelonephritis. Her surgical history includes vaginal hysterectomy with unilateral oophorectomy in 2008. She does not recall ever having hot flashes or other indications of menopause. She has a history of smoking 1/2 pack of cigarettes daily for 30 years. INTERIM HISTORY: She began cycle 1 of TCH-P on 06/11/2019. She was given first cycle prophylaxis with Neulasta. Her treatment was complicated by severe headache and dizziness for several days and subsequently by nausea/vomiting and diarrhea. On day 3 she passed out at home, sustaining a fracture to the proximal right humerus. At day 6 she was admitted to the hospital because of intractable nausea and diarrhea. The maximum diarrhea was estimated at 6 stools per day. She also developed sore mouth, which lasted for about a week. She was very weak generally and had poor appetite for the first 2 weeks. During the last week of the cycle she had started to feel a lot better, but she then fell again when she stepped in a hole and she sustained a fracture to her proximal left humerus. Both fractures have been managed conservatively. She then proceeded with cycle 2 of her chemotherapy on 07/02/2019. With that cycle she was given scheduled hydration, but her dosages remained the same. She was able to tolerate it with acceptable toxicity. She then continued with cycle 3 on 07/23/2019, with cycle 4 on 08/13/2019, with cycle 5 on 09/03/2019, and with cycle 6 on 09/24/2019. During that time, she required frequent hydration, but she continued to tolerate the chemotherapy with acceptable toxicity. She returned on 10/19/2021 continue her systemic adjuvant therapy with Herceptin/Perjeta at the 3-week dosing schedule. On 11/08/2019 she underwent left modified radical mastectomy and right simple mastectomy. Pathology on the left breast showed sclerotic mass measuring 1.4 x 2.0 x 0.7 cm, but with no residual carcinoma and no involvement in 12 axillary lymph nodes, consistent with complete response to neoadjuvant therapy. The right breast showed benign pathology. She then continued with cycle 2 Herceptin/Perjeta on 11/15/2019 and with cycle 3 on 12/07/2019. She is seen for a follow-up visit. She has been feeling good generally. She still has pain in the right shoulder and arm, and she has some functional restriction with it. Her energy, though, is good, and her activity is otherwise back to normal. ECOG score is 0. She has good appetite. She has no fever, night sweats, or hot flashes. She has some chronic sinus drainage with associated cough. She has no shortness of breath or chest pain. She has no GI or complaints. She has no other joint or bone pain. She has neuropathy in her feet. It had initially worsened somewhat during the chemotherapy, but it has since then remained stable. Medications: DULoxetine HCl 1 Capsule (of 60 mg) Capsule Delayed Release Particles Oral daily, DULoxetine HCl 1 Capsule (of 30 mg) Capsule Delayed Release Particles Oral daily, Levemir 42 Units (of 100 Units/mL) Subcutaneous b.i.d., Levo-T 1 Tablet (of .5 mcg) Oral daily, Losartan Potassium 1 Tablet (of 25 mg) Oral daily, Marinol 1 Capsule (of 2.5 mg) Oral b.i.d. PRN, NovoLOG 15 Units (of 100 Units/mL) Subcutaneous t.i.d., oxyCODONE HCl 1 Tablet (of 10 mg) Oral four times a day PRN, Polytrim 1 Drop(s) (of 09649-7.1 Units/mL - %) Solution Ophthalmic q 3 hours PRN, Protonix 1 Tablet (of 20 mg) Tablet, enteric coated Oral daily, traMADol HCl 1 - 2 Tablet (of 50 mg) Oral q 6 hours PRN Allergies: NORBERTO Inhibitors, NSAIDs, and Ozempic. Review of Systems: Constitutional - Her energy is good and she is feeling really good. 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 Her appetite is good and weight is stable. No fever, chills, hot flashes, or night sweats. ECOG score is 0, ENMT - No sinus congestion/drainage. No mouth sores. No sore throat or difficulty swallowing, Hematologic/Lymphatic - No abnormal bruising or bleeding, Respiratory - No shortness of breath. No cough. No pleuritic pain or hemoptysis, Cardiovascular - No angina pain. No palpitations, Gastrointestinal - No nausea or vomiting. No heartburn or acid reflux. No diarrhea or constipation. No blood in the stool or black stools, Genitourinary (F) - No dysuria or hematuria. No urinary frequency. No urgency or incontinence, Musculoskeletal - She has pain in her in her right shoulder and arm, Integumentary - No skin complications, Neurologic - No headache or dizziness. She continues to have neuropathy in her feet, Psychiatric - No anxiety or depression. She doesn't sleep well. Vital Signs: Performed on Dec 28, 2019 09:34 Height - 71.50 in Weight - 225.4 lbs (HIGH) BSA - 2.23 sq.m BMI - 31.00 (HIGH) Temperature - 97.9 F (LOW) Pulse - 108 /min (HIGH) Respiration - 22 /min BP - 136/85 mm(hg) O2 Sat - 97 % Pain - 5 Physical Examination: Constitutional - She looks good generally, Eyes - Sclerae nonicteric. Conjunctivae clear, ENMT - No lesions noted in the oral cavity, Hematologic/Lymphatic - No cervical or clavicular adenopathy, Respiratory - Lungs are clear with good air movement bilaterally, Cardiovascular - Heart rhythm is regular. There is a II/ systolic murmur. There is no gallop or rub noted, Breasts - There is some slight soft tissue swelling in the left chest wall. There are no chest wall lesions noted. There is no axillary adenopathy, Abdomen - Soft. Liver and spleen are not enlarged. There is no abdominal mass or ascites noted and there is no inguinal adenopathy, Extremities - No edema, Neurologic - No focal neurologic deficits noted. Lab/Imaging: Test performed on Dec 28, 2019 08:12 Sodium 138 mmol/L TSH 2.67 uIU/mL Potassium 4.3 mmol/L Chloride 101 mmol/L CO2 27 mmol/L Anion Gap 14.3 BUN 13 mg/dL Creatinine 0.6 mg/dL Cr Clearance (Est) 168.8300 mL/min eGFR 103.4 mL/min Glucose 299 mg/dL Calcium 9.2 mg/dL Protein, Total 7.0 g/dL Albumin 4.0 g/dL Globulin 3.0 g/dL Bilirubin, Total 0.2 mg/dL ALT (SGPT) 26 U/L AST (SGOT) 21 U/L Alkaline Phosphatase 163 IU/L Hemoglobin A1C % 8.2 % WBC 7.6 10 3/uL RBC 4.22 10 6/uL HGB 13.5 g/dL HCT 41.5 % MCV 98.3 fL MCH 32.0 pg MCHC 32.5 g/dL RDW 12.0 % Platelet Count 263 10 3/cmm MPV 10.2 fL Neutrophils 4.9 10 3/uL Lymphocytes 2.0 10 3/uL Monocytes 0.5 10 3/uL Eosinophils 0.1 10 3/uL Basophils 0.1 10 3/uL Neutrophil % 64.9 % Lymphocyte % 26.1 % Monocyte % 6.6 % Eosinophil % 1.3 % Basophils % 0.8 % Impression: 1. Patient with grade 2 infiltrating ductal carcinoma of the left breast, Stage IB (T2, N1, M0), ER/NV positive and HER-2/kelsie positive. Staging PET/CT was requested but delayed because of insurance issues. 2. She underwent ultrasound-guided needle biopsy of left breast mass on 05/08/2019, and she underwent ultrasound-guided needle biopsy of left axillary lymph node on 05/22/2019. Her other medical illnesses include: 3. Hypertension. 4. Type II diabetes. 5. Peripheral neuropathy. 6. GERD. 7. Hypothyroidism. 8. History of emphysematous pyelonephritis. She began cycle 1 of neoadjuvant TCH-P on 06/11/2019. Her treatment was complicated by headache and dizziness, nausea/vomiting, diarrhea, and stomatitis. She sustained a fracture to the right proximal humerus when she passed out at home on day 3. She required hospitalization for IV hydration at day 6. Her symptoms subsequently improved, but she then sustanined a fracture to the proximal left humerus when she stepped in a hole and fell. Both fractures have been managed conservatively. She was able to continue with cycle 2 of her chemotherapy on 07/02/2019, with cycle 3 on 07/23/2019, with cycle 4 on 08/13/2019, with cycle 5 on 09/03/2019, and with cycle 6 on 09/24/2019. During that time, she did receive frequent IV hydration, and she was able to tolerate the chemotherapy with acceptable toxicity. As of 10/19/2019 she continued systemic adjuvant therapy with cycle 1 of Herceptin/Perjeta. On 11/08/2019 she underwent left modified radical mastectomy and right simple mastectomy. Pathology on the left breast showed r a sclerotic mass measuring 1.4 x 2.0 x 0.7 cm, but there was no residual carcinoma in the breast and no involvement in 12 axillary lymph nodes, consistent with complete response to neoadjuvant therapy. The right breast pathology was benign. She then continued with cycle 2 of Herceptin/Perjeta on 11/15/2019 and with cycle 3 on 12/07/2019. Thus far she has tolerated it very well. She has continued to show improvement in her performance status since completing the chemotherapy. Plan: She will proceed with cycle 4 of Herceptin/Perjeta. The dosages remain the same. She returns in 3 weeks. Signed By: Preston Cuellar M.D. <<Signature on File>>
== END 2020-01-03 23:59 | disposition home or self-care (01) ==
LOC: ONCMED 06:45
PROVIDERS: Absent Provider Internal Medicine Medical Oncology; Family Provider Family Medicine; PCP Family Medicine; Visit Provider Internal Medicine Medical Oncology
DX: Z51.12 Encounter for antineoplastic immunotherapy (principal); C50.812 Malignant neoplasm of overlapping sites of left female breast; I10 Essential (primary) hypertension; E11.42 Type 2 diabetes mellitus with diabetic polyneuropathy; K21.9 Gastro-esophageal reflux disease without esophagitis; E03.9 Hypothyroidism, unspecified; Z17.0 Estrogen receptor positive status [ER+]; Z90.13 Acquired absence of bilateral breasts and nipples; Z79.4 Long term (current) use of insulin; Z87.81 Personal history of (healed) traumatic fracture
CPT/HCPCS: 80053; 83036; 84443; 85025; 96367; 96413; 96417; 99214; J1200; J3490; J7050; J9306; J9355

== ENCOUNTER 2020-01-21 15:00 | Outpatient (RCR) | payer BC, SELFPAY ==
[2020-01-18 08:29] LABS: Basophils # 0.1 10^3/uL (0.0-0.1); Basophils % 0.7 %; Eosinophils # 0.1 10^3/uL (0.0-0.8); Eosinophils % 1.3 %; Hematocrit 41.6 % (37.0-47.0); Hemoglobin 13.8 g/dL (11.5-15.3); Lymphocytes # 2.9 10^3/uL (0.8-4.8); Lymphocytes % 34.4 %; Mean Corpuscular HGB Conc 33.2 g/dL (30.0-36.0); Mean Corpuscular Hemoglobin 32.2 pg (28.0-34.0); Mean Corpuscular Volume 97.2 fL (81-99); Mean Platelet Volume 10.2 fL (7.4-10.4); Monocytes # 0.6 10^3/uL (0.2-0.9); Monocytes % 6.6 %; Neutrophils # 4.7 10^3/uL (1.8-7.7); Neutrophils % 56.6 %; Nucleated Red Blood Cells % 0 %; Platelet Count 288 10^3/cmm (130-400); Red Blood Count 4.28 10^6/uL (4.1-5.3); Red Cell Distribution Width 12.3 % (12.1-15.1); White Blood Count 8.3 10^3/uL (4.0-10.0)
[2020-01-18 08:43] LABS: Alanine Aminotransferase 29 U/L (0-33); Albumin Level 3.8 g/dL (3.5-5.2); Alkaline Phosphatase 156 IU/L (35-105); Anion Gap 14.3 (5-19); Aspartate Amino Transferase 23 U/L (0-32); Blood Urea Nitrogen 10 mg/dL (6-20); Calcium 9.4 mg/dL (8.5-10.5); Carbon Dioxide 25 mmol/L (22-29); Chloride 102 mmol/L (98-107); Glomerular Filtration Rate 103.4 mL/min (90-130); Glucose 335 mg/dL (65-115); Osmolality Calculated 293 mOsm/kg (285-295); Potassium 4.3 mmol/L (3.5-5.1); Sodium 137 mmol/L (136-145); Total Bilirubin 0.2 mg/dL (0.15-1.2); Total Protein 6.8 g/dL (6.6-8.7)
[2020-01-18] MEDS: acetaminophen 325 mg Tablet 650 MG PO (10:00)
[2020-01-18] MEDS: sodium chloride 0.9% 250 ML 300 ML IV (10:00)
[2020-01-18] MEDS: levofloxacin-dextrose 5% 750 mg-150 mL Premix 100 MG IV (11:40)
--- NOTE | 2020-01-21 14:33 | XR_ITS ---
WS: [id number] Chest 2 views, 01/21/2020 Clinical Data: STERNAL PAIN AND SWELLING POST BILATERAL MASTECTOMY Comparison: Portable chest, 10/07/2019 Findings: No nodules, masses or effusions are seen. The heart is normal. The pulmonary vascularity is not increased. No pneumonia or pneumothorax is seen. The right Port-A-Cath remains in the same posit ion. XR/XR chest 2V* [id number] Impression: Negative chest.
--- NOTE | 2020-01-21 14:50 | USCV_ITS ---
Shila Sheppard Age: 54 Gender: F : 1965 Exam Date: 01/21/2020 14:56 Ordering Phys: Zoey Yee NP Technologist: Raymon Colbert Exam Location: [facility] – [place] Indication: HIGH RISK MEDS BP: / HR: Rhythm: Sinus Technical Quality: Adequate MEASUREMENTS (Male / Female) Normal Values 2D ECHO LV Diastolic Diameter PLAX 3.3 cm 4.2 - 5.9 / 3.9 - 5.3 cm LV Systolic Diameter PLAX 2.7 cm IVS Diastolic Thickness 0.8 cm 0.6 - 1.0 / 0.6 - 0.9 cm IVS Systolic Thickness 1.3 cm LVPW Diastolic Thickness 1.1 cm 0.6 - 1.0 / 0.6 - 0.9 cm LVPW Systolic Thickness 1.5 cm LVOT Diameter 2.0 cm LV Ejection Fraction 2D Teich 38.2 % LV Ejection Fraction MOD 2C 62.0 % LV Ejection Fraction 2C AL 61.9 % LA Diameter 3.4 cm M-MODE LV Diastolic Diameter MM 5.5 cm 4.2 - 5.9 / 3.9 - 5.3 cm LV Systolic Diameter MM 3.9 cm LV Ejection Fraction MM Teich 56.3 % IVS Diastolic Thickness MM 0.8 cm 0.6 - 1.0 / 0.6 - 0.9 cm IVS Systolic Thickness MM 1.4 cm LVPW Diastolic Thickness MM 1.4 cm 0.6 - 1.0 / 0.6 - 0.9 cm LVPW Systolic Thickness MM 1.7 cm RV Diastolic Diameter MM 1.5 cm Aortic Annulus Diameter 3.3 cm LA Ao Ratio MM 1.0 MV E Point Septal Separation 0.8 cm FINDINGS Left Ventricle Normal left ventricular size and systolic function, EF 58 %. Mild left ventricular hypertrophy. No regional wall motion abnormalities. Right Ventricle Normal right ventricular size and systolic function. Right Atrium The right atrium is normal in size. Left Atrium The left atrium is normal in size. Mitral Valve No gross abnormalities noted Aortic Valve No gross abnormalities noted Tricuspid Valve No gross abnormalities noted Pulmonic Valve Pulmonic valve not well visualized. Pericardium Normal pericardium without effusion. Aorta Normal ascending aorta dimension. CONCLUSIONS Normal left ventricular size and systolic function, EF 58 %. Mild left ventricular hypertrophy. No regional wall motion abnormalities. No intracardiac masses No pericardial effusion Compared to the study from 05/22/2019, there is no significant change in the 2-D findings Dr Cata Owen MD [facility] (Electronically Signed) Final Date: 21 Jan 2020 19:27 S
== END 2020-02-03 23:59 | disposition home or self-care (01) ==
LOC: RAD 15:00
PROVIDERS: PCP Family Medicine; Visit Provider Nurse Practitioner
DX: Z51.12 Encounter for antineoplastic immunotherapy (principal); C50.812 Malignant neoplasm of overlapping sites of left female breast; R07.89 Other chest pain; R22.2 Localized swelling, mass and lump, trunk; Z90.13 Acquired absence of bilateral breasts and nipples; Z17.0 Estrogen receptor positive status [ER+]
CPT/HCPCS: 71046; 80053; 85025; 93308; 96367; 96413; 96417; J1200; J1956; J3490; J7050; J9306; J9355

== ENCOUNTER → 2020-02-25 09:29 | Outpatient (BNVA) | payer BC, SELFPAY | PROVIDERS: PCP Family Medicine; Visit Provider Specialist | DX: S42.351K Displaced comminuted fracture of shaft of humerus, right arm, subsequent encounter for fracture with nonunion (principal); X58.XXXD Exposure to other specified factors, subsequent encounter | CPT/HCPCS: 73030 ==

== ENCOUNTER 2020-02-25 15:15 | Outpatient (CLI) | payer BC, SELFPAY | END 2020-02-25 15:16 | disposition home or self-care (01) | LOC: SPT 15:15 | PROVIDERS: PCP Family Medicine; Visit Provider Specialist | DX: M65.4 Radial styloid tenosynovitis [de Quervain] (principal) | CPT/HCPCS: 97760; L3809 ==

== ENCOUNTER 2020-02-28 06:43 | Outpatient (RCR) | payer BC, SELFPAY ==
[2020-02-07 08:36] LABS: Basophils # 0.1 10^3/uL (0.0-0.1); Basophils % 0.7 %; Eosinophils # 0.1 10^3/uL (0.0-0.8); Eosinophils % 1.4 %; Hematocrit 42.6 % (37.0-47.0); Hemoglobin 13.9 g/dL (11.5-15.3); Lymphocytes # 3.3 10^3/uL (0.8-4.8); Lymphocytes % 33.2 %; Mean Corpuscular HGB Conc 32.6 g/dL (30.0-36.0); Mean Corpuscular Hemoglobin 31.3 pg (28.0-34.0); Mean Corpuscular Volume 95.9 fL (81-99); Mean Platelet Volume 10.4 fL (7.4-10.4); Monocytes # 0.8 10^3/uL (0.2-0.9); Neutrophils # 5.6 10^3/uL (1.8-7.7); Neutrophils % 56.4 %; Nucleated Red Blood Cells % 0 %; Platelet Count 272 10^3/cmm (130-400); Red Blood Count 4.44 10^6/uL (4.1-5.3); Red Cell Distribution Width 12.5 % (12.1-15.1); White Blood Count 9.9 10^3/uL (4.0-10.0)
[2020-02-07 08:50] LABS: Alanine Aminotransferase 33 U/L (0-33); Albumin Level 4.1 g/dL (3.5-5.2); Alkaline Phosphatase 172 IU/L (35-105); Anion Gap 16.2 (5-19); Aspartate Amino Transferase 21 U/L (0-32); Blood Urea Nitrogen 17 mg/dL (6-20); Calcium 9.6 mg/dL (8.5-10.5); Carbon Dioxide 24 mmol/L (22-29); Chloride 100 mmol/L (98-107); Glomerular Filtration Rate 103.4 mL/min (90-130); Glucose 329 mg/dL (65-115); Osmolality Calculated 291 mOsm/kg (285-295); Potassium 4.2 mmol/L (3.5-5.1); Sodium 136 mmol/L (136-145); Total Bilirubin 0.2 mg/dL (0.15-1.2); Total Protein 7.1 g/dL (6.6-8.7)
[2020-02-07] MEDS: acetaminophen 325 mg Tablet 650 MG PO (11:20)
[2020-02-07] MEDS: sodium chloride 0.9% 250 ML 75 ML IV (11:25)
[2020-02-07 12:43] LABS: Magnesium 1.8 mg/dL (1.7-2.3)
[2020-02-07 20:55] LABS: Estradiol. 10.9 pg/mL; Follicle Stimulating Hormone 27.2 mIU/mL
--- NOTE | 2020-02-11 10:13 | ONC FU_ITS ---
[facility] Patient Note Patient: Shila Sheppard Unit #: [id number]: 1965 Dictated By: Walter GreenDate of Visit: Feb 07, 2020 Onc MED Follow-Up/Prog Note Chief Complaint: Breast cancer. History of Present Illness: Ms Sheppard is a 54 year-old woman with grade 3 infiltrating ductal carcinoma of the left breast, ER/NJ positive and HER-2/kelsie positive. By clinical and pathologic evaluation and with ER/NJ and HER-2/kelsie positive disease, she is stage IB (T2, N1, M0). She had presented with a palpable mass in the left breast, first noticed a month to a month and a half ago. Bilateral diagnostic mammogram with limited ultrasound of the left breast on 04/17/2019 was BI-RADS category 5, highly suspicious of malignancy. Findings included an irregular marginated spiculated soft tissue mass in the posterior inferior left breast at the 6 o'clock position measuring 3.3 x 2.8 cm. The underlying skin appeared retracted and thickened. There are no abnormalities noted in the right breast. Ultrasound-guided biopsy of the left breast mass on 05/08/2019 showed grade 2 infiltrating ductal carcinoma. The best prognostic profile showed ER positive at 87% and NJ positive at 41%. The tumor was positive for overexpression of HER-2/kelsie, 3+ by IHC and amplification ratio by FISH of 3.8 with 13.3 HER-2 copies/cell. The Ki-67 was unfavorable at 24%. Dr Cuellar had seen her initially on 05/18/2019. She was recommended to undergo neoadjuvant chemotherapy with TCH-P. Her baseline echocardiogram showed normal LV function with estimated ejection fraction 65%. Staging PET/CT also was recommended but delayed because of insurance issues. Her other medical illnesses include hypertension, type II diabetes with peripheral neuropathy, GERD, and hypothyroidism. She has a history of emphysematous pyelonephritis. Her surgical history includes vaginal hysterectomy with unilateral oophorectomy in 2008. She does not recall ever having hot flashes or other indications of menopause. She has a history of smoking 1/2 pack of cigarettes daily for 30 years. INTERIM HISTORY: She began cycle 1 of TCH-P on 06/11/2019. She was given first cycle prophylaxis with Neulasta. Her treatment was complicated by severe headache and dizziness for several days and subsequently by nausea/vomiting and diarrhea. On day 3 she passed out at home, sustaining a fracture to the proximal right humerus. At day 6 she was admitted to the hospital because of intractable nausea and diarrhea. The maximum diarrhea was estimated at 6 stools per day. She also developed sore mouth, which lasted for about a week. She was very weak generally and had poor appetite for the first 2 weeks. During the last week of the cycle she had started to feel a lot better, but she then fell again when she stepped in a hole and she sustained a fracture to her proximal left humerus. Both fractures have been managed conservatively. She then proceeded with cycle 2 of her chemotherapy on 07/02/2019. With that cycle she was given scheduled hydration, but her dosages remained the same. She was able to tolerate it with acceptable toxicity. She then continued with cycle 3 on 07/23/2019, with cycle 4 on 08/13/2019, with cycle 5 on 09/03/2019, and with cycle 6 on 09/24/2019. During that time, she required frequent hydration, but she continued to tolerate the chemotherapy with acceptable toxicity. She returned on 10/19/2021 continue her systemic adjuvant therapy with Herceptin/Perjeta at the 3-week dosing schedule. On 11/08/2019 she underwent left modified radical mastectomy and right simple mastectomy. Pathology on the left breast showed sclerotic mass measuring 1.4 x 2.0 x 0.7 cm, but with no residual carcinoma and no involvement in 12 axillary lymph nodes, consistent with complete response to neoadjuvant therapy. The right breast showed benign pathology. She then continued with cycle 2 Herceptin/Perjeta on 11/15/2019 and with cycle 3 on 12/07/2019. Mrs Sheppard is here today follow-up visit. She is due for Herceptin/Perjeta. She states she has been feeling good overall. She still has pain in the right shoulder and arm, and she has some functional restriction with it. Her energy, though, is good, and her activity is otherwise back to normal. She has returned to work full-time. ECOG score is 0. She has good appetite. She denies fever, night sweats, or hot flashes. She denies shortness of breath or chest pain. She has no GI or complaints. She has no other joint or bone pain. She has neuropathy in her feet. It had initially worsened somewhat during the chemotherapy, but it has since then remained stable. She is diabetic and her glucose is poorly controlled. Past Medical History: Emphysematous pyelonephritis Gastroesophageal reflux disease Hypertension Hypothyroidism Peripheral neuropathy Type II diabetes Left proximal humeral fracture in 2019 Right proximal humeral fracture in 2019 Past Surgical History: Cholecystectomy Excision of Holly's neuroma Subtotal thyroidectomy Right subcclavian [id number] Nice in 2018 Left breast lumpectomy for benign disease in 2014 Vaginal hysterectomy with unilateral right salpingo-oophorectomy in 2008 Left thyroid lobectomy for multinodular goiter in 2004 Allergies: NORBERTO Inhibitors, NSAIDs, and Ozempic. Medications: DULoxetine HCl 1 Capsule (of 60 mg) Capsule Delayed Release Particles Oral daily DULoxetine HCl 1 Capsule (of 30 mg) Capsule Delayed Release Particles Oral daily Levemir 42 Units (of 100 Units/mL) Subcutaneous b.i.d. Levo-T 1 Tablet (of .5 mcg) Oral daily Losartan Potassium 1 Tablet (of 25 mg) Oral daily Marinol 1 Capsule (of 2.5 mg) Oral b.i.d. PRN NovoLOG 15 Units (of 100 Units/mL) Subcutaneous t.i.d. oxyCODONE HCl 1 Tablet (of 10 mg) Oral four times a day PRN Polytrim 1 Drop(s) (of 83910-7.1 Units/mL - %) Solution Ophthalmic q 3 hours PRN Protonix 1 Tablet (of 20 mg) Tablet, enteric coated Oral daily traMADol HCl 1 - 2 Tablet (of 50 mg) Oral q 6 hours PRN Family History: Ms. Sheppard's mother is alive. Ms. Sheppard's father is alive. Both parents are still living, father at age 78 and mother at age 76. Father has coronary artery disease and he also has been treated for prostate cancer. Her mother has polycystic kidney disease with renal failure, and she is on dialysis. One brother is in good health. There are multiple family members with breast cancer on her father's side, including 2 paternal aunts and a first cousin. At least 2 of those family members have been tested for BRCA and reportedly were negative. 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 She is a daily smoker who has smoked 0.5 packs/day for 30 years. She drinks occasionally. She has indicated exposure to the following products: cigarettes. Ms. Sheppard reports the following support systems: lives with spouse, significant other, family, or friends, lives in own house, supportive family/friends willing to assist with needs, and adequate transportation available for expected visits. Her diet consists of regular meals. She indicates her activity level as: regular exercise. 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 She has a history of smoking for 30 years, previously in the range of 1/2 pack of cigarettes daily. She has cut down. She has only rare alcohol use. Review Of Symptoms: Constitutional Denies fevers, chills, night sweats, excessive fatigue. She has lost 13 pounds since her last hospitalization. Allergic/Immunologic No reactions. Eyes Denies significant visual changes. No diplopia. No amaurosis. ENMT Denies changes in hearing, sore throat, mouth sores, difficulty or changes in swallowing ability, and/or sinus drainage. Endocrine sugars better at home. Has had a couple of blood sugars in the 60's. Hematologic/Lymphatic Denies easy bruising or bleeding. The patient denies any tender or palpable lymph nodes. Breasts Mastectomy sites still somewhat swollen, no exudate. Following with Dr Nice. Respiratory Denies dyspnea on exertion, chest pain, cough or hemoptysis. Denies orthopnea. Cardiovascular Denies anginal chest pain, palpitations or orthopnea. Gastrointestinal Denies nausea, vomiting, GI bleeding, or constipation. Denies change in bowel habits and/or stool color, no heartburn or early satiety. Diarrhea resolved currently. Genitourinary (F) No hematuria, hesitancy, incontinence, vaginal bleeding, discharge or other problems with urination. Musculoskeletal Denies joint pain, swelling or redness. No decreased range of motion. Integumentary Denies chronic rashes, inflammation, ulcerations or skin changes. Neurologic Denies headache, blurred vision, and no areas of focal weakness or numbness. Normal gait. No sensory problems. Psychiatric Denies insomnia, depression, carole or mood swings. Vital Signs: Performed on Feb 07, 2020 13:00 Height - 71.50 in Temperature - 98 F (LOW) Pulse - 94 /min Respiration - 18 /min BP - 141/74 mm(hg) (HIGH) O2 Sat - 97 % Pain - 0 Fatigue - 0 Performed on Feb 07, 2020 10:35 Height - 71.50 in Weight - 233.0 lbs (HIGH) BSA - 2.26 sq.m BMI - 32.04 (HIGH) Temperature - 97.0 F (LOW) Pulse - 104 /min (HIGH) Respiration - 20 /min BP - 191/92 mm(hg) (HIGH) O2 Sat - 95 % (LOW) Pain - 7,0 - Fully active, able to carry on all predisease activities without restrictions. (ECOG) Physical Examination: Constitutional Alert, oriented, no acute distress. Skin pink, warm and dry. Head Normocephalic; atraumatic. Eyes Conjunctivae and sclerae are clear and without icterus. Pupils are reactive and equal. Neck No jugular venous distension. Hematologic/Lymphatic No petechiae or purpura. Respiratory Lungs are clear to auscultation without rhonchi or wheezing. Cardiovascular Regular rate and rhythm of heart without murmurs,clicks, gallops or rubs. Chest Right sided venous access device has healed well and is unremarkable. Back/Spine Non-tender to palpation. Extremities No visible deformities, no cyanosis, clubbing or edema. Musculoskeletal Slight swelling in right upper arm with limited ROM with both shoulders but without obvious weakness. Chest wall still somewhat red and swollen-follow?ing with [place]. Integumentary No rashes or lesions. Neurologic No sensory or motor deficits, normal cerebellar function, normal gait. Psychiatric Alert and oriented times three. Coherent speech. Verbalizes understanding of our discussions today. Laboratory:Test performed on Feb 07, 2020 08:10 Estradiol 10.9 pg/mL FSH 27.2 mIU/mL Magnesium 1.8 mg/dL Sodium 136 mmol/L Potassium 4.2 mmol/L Chloride 100 mmol/L CO2 24 mmol/L Anion Gap 16.2 BUN 17 mg/dL Creatinine 0.6 mg/dL Cr Clearance (Est) 168.8300 mL/min eGFR 103.4 mL/min Glucose 329 mg/dL Calcium 9.6 mg/dL Protein, Total 7.1 g/dL Albumin 4.1 g/dL Globulin 3.0 g/dL Bilirubin, Total 0.2 mg/dL ALT (SGPT) 33 U/L AST (SGOT) 21 U/L Alkaline Phosphatase 172 IU/L WBC 9.9 10 3/uL RBC 4.44 10 6/uL HGB 13.9 g/dL HCT 42.6 % MCV 95.9 fL MCH 31.3 pg MCHC 32.6 g/dL RDW 12.5 % Platelet Count 272 10 3/cmm MPV 10.4 fL Neutrophils 5.6 10 3/uL Lymphocytes 3.3 10 3/uL Monocytes 0.8 10 3/uL Eosinophils 0.1 10 3/uL Basophils 0.1 10 3/uL Neutrophil % 56.4 % Lymphocyte % 33.2 % Monocyte % 8.0 % Eosinophil % 1.4 % Basophils % 0.7 % Impression: 1. Patient with grade 2 infiltrating ductal carcinoma of the left breast, Stage IB (T2, N1, M0), ER/NJ positive and HER-2/kelsie positive. Staging PET/CT was requested but delayed because of insurance issues. 2. She underwent ultrasound-guided needle biopsy of left breast mass on 05/08/2019, and she underwent ultrasound-guided needle biopsy of left axillary lymph node on 05/22/2019. Her other medical illnesses include: 3. Hypertension. 4. Type II diabetes. 5. Peripheral neuropathy. 6. GERD. 7. Hypothyroidism. 8. History of emphysematous pyelonephritis. She began cycle 1 of neoadjuvant TCH-P on 06/11/2019. Her treatment was complicated by headache and dizziness, nausea/vomiting, diarrhea, and stomatitis. She sustained a fracture to the right proximal humerus when she passed out at home on day 3. She required hospitalization for IV hydration at day 6. Her symptoms subsequently improved, but she then sustanined a fracture to the proximal left humerus when she stepped in a hole and fell. Both fractures have been managed conservatively. She was able to continue with cycle 2 of her chemotherapy on 07/02/2019, with cycle 3 on 07/23/2019, with cycle 4 on 08/13/2019, with cycle 5 on 09/03/2019, and with cycle 6 on 09/24/2019. During that time, she did receive frequent IV hydration, and she was able to tolerate the chemotherapy with acceptable toxicity. As of 10/19/2019 she continued systemic adjuvant therapy with cycle 1 of Herceptin/Perjeta. On 11/08/2019 she underwent left modified radical mastectomy and right simple mastectomy. Pathology on the left breast showed r a sclerotic mass measuring 1.4 x 2.0 x 0.7 cm, but there was no residual carcinoma in the breast and no involvement in 12 axillary lymph nodes, consistent with complete response to neoadjuvant therapy. The right breast pathology was benign. She then continued with cycle 2 of Herceptin/Perjeta on 11/15/2019 and with cycle 3 on 12/07/2019. Thus far she has tolerated it very well. She has continued to show improvement in her performance status since completing the chemotherapy. Plan: 1. Proceed with cycle 6 of Herceptin/Perjeta. Her first dose of Herceptin and Perjeta was on 06/11/2019. 2. Follow-up echocardiogram from 01/21/2020 reports a ejection fraction of 58% with normal left ventricular size and systolic function. There is mild left ventricular hypertrophy. No regional wall motion abnormalities. No intracardiac masses and no pleural effusions noted. Compared to the study from 05/22/2019, there is been no significant changes in the 2D findings . Dr. Owen did read the echocardiogram. She will be due again in May 2020 for limited view echo to monitor the Herceptin/Perjeta. 3. Today's labs reviewed in detail and discussed with Ms. Sheppard and a copy was given to her. WBC 9.9, hemoglobin 13.9 platelets 272,000 ANC is 5600 potassium 4.2 creatinine 0.6 random glucose was 329 LFTs are normal and alk phos is 172. 4. I have asked for an FSH and estradiol level to help determine postmenopausal state so that she could begin hormonal therapy. Once we have those results, we can decide which agent she needs to be on. 5. We will plan to see her back in 3 weeks with CBC CMP. 6. Ms. Sheppard was instructed to contact us in the interim should questions or problems arise. 7. I did request a magnesium for follow-up of hypo-magnesium in the past. It was reported normal at 1.8. 8. We did change her pain medicine back to oxycodone 10 mg as a hydrocodone APAP 7.5 325 was just not controlling her shoulder pain. Signed By: Walter Green-, [facility] Preston Cuellar MD <<Signature on File>>
[2020-02-28 08:38] LABS: Basophils # 0.1 10^3/uL (0.0-0.1); Basophils % 0.8 %; Eosinophils # 0.1 10^3/uL (0.0-0.8); Eosinophils % 1.1 %; Hematocrit 43.5 % (37.0-47.0); Hemoglobin 14.7 g/dL (11.5-15.3); Lymphocytes % 29.9 %; Mean Corpuscular HGB Conc 33.8 g/dL (30.0-36.0); Mean Corpuscular Hemoglobin 31.5 pg (28.0-34.0); Mean Corpuscular Volume 93.3 fL (81-99); Mean Platelet Volume 10.9 fL (7.4-10.4); Monocytes # 0.6 10^3/uL (0.2-0.9); Monocytes % 5.9 %; Neutrophils # 6.2 10^3/uL (1.8-7.7); Neutrophils % 61.8 %; Nucleated Red Blood Cells % 0 %; Platelet Count 271 10^3/cmm (130-400); Red Blood Count 4.66 10^6/uL (4.1-5.3); Red Cell Distribution Width 12.4 % (12.1-15.1)
[2020-02-28 09:01] LABS: Alanine Aminotransferase 39 U/L (0-33); Albumin Level 4.2 g/dL (3.5-5.2); Alkaline Phosphatase 178 IU/L (35-105); Anion Gap 19.4 (5-19); Aspartate Amino Transferase 21 U/L (0-32); Blood Urea Nitrogen 21 mg/dL (6-20); Calcium 9.5 mg/dL (8.5-10.5); Carbon Dioxide 24 mmol/L (22-29); Chloride 94 mmol/L (98-107); Globulin 3.2 g/dL (1.3-4.6); Glomerular Filtration Rate 74.2 mL/min (90-130); Osmolality Calculated 297 mOsm/kg (285-295); Potassium 4.4 mmol/L (3.5-5.1); Sodium 133 mmol/L (136-145); Total Bilirubin 0.5 mg/dL (0.15-1.2); Total Protein 7.4 g/dL (6.6-8.7)
[2020-02-28 09:23] LABS: Glucose 543 mg/dL (65-115)
--- NOTE | 2020-02-28 20:29 | ONC FU_ITS ---
Dr. Cuellar Patient Follow-Up Note Patient: Shila Sheppard Unit #: [id number]: 1965 Dicatated By: Preston Cuellar M.D.Date of Visit:Feb 28, 2020 Onc Med Follow-up/Prog Note Chief Complaint: Breast cancer. History of Present Illness: This is a 54 year-old woman with grade 3 infiltrating ductal carcinoma of the left breast, ER/NV positive and HER-2/kelsie positive. By clinical and pathologic evaluation and with ER/NV and HER-2/kelsie positive disease, she is stage IB (T2, N1, M0). She had presented with a palpable mass in the left breast, first noticed a month to a month and a half ago. Bilateral diagnostic mammogram with limited ultrasound of the left breast on 04/17/2019 was BI-RADS category 5, highly suspicious of malignancy. Findings included an irregular marginated spiculated soft tissue mass in the posterior inferior left breast at the 6 o'clock position measuring 3.3 x 2.8 cm. The underlying skin appeared retracted and thickened. There are no abnormalities noted in the right breast. Ultrasound-guided biopsy of the left breast mass on 05/08/2019 showed grade 2 infiltrating ductal carcinoma. The best prognostic profile showed ER positive at 87% and NV positive at 41%. The tumor was positive for overexpression of HER-2/kelsie, 3+ by IHC and amplification ratio by FISH of 3.8 with 13.3 HER-2 copies/cell. The Ki-67 was unfavorable at 24%. I had seen her initially on 05/18/2019. She was recommended to undergo neoadjuvant chemotherapy with TCH-P. Her baseline echocardiogram showed normal LV function with estimated ejection fraction 65%. Staging PET/CT also was recommended but delayed because of insurance issues. Her other medical illnesses include hypertension, type II diabetes with peripheral neuropathy, GERD, and hypothyroidism. She has a history of emphysematous pyelonephritis. Her surgical history includes vaginal hysterectomy with unilateral oophorectomy in 2008. She does not recall ever having hot flashes or other indications of menopause. She has a history of smoking 1/2 pack of cigarettes daily for 30 years. INTERIM HISTORY: She began cycle 1 of TCH-P on 06/11/2019. She was given first cycle prophylaxis with Neulasta. Her treatment was complicated by severe headache and dizziness for several days and subsequently by nausea/vomiting and diarrhea. On day 3 she passed out at home, sustaining a fracture to the proximal right humerus. At day 6 she was admitted to the hospital because of intractable nausea and diarrhea. The maximum diarrhea was estimated at 6 stools per day. She also developed sore mouth, which lasted for about a week. She was very weak generally and had poor appetite for the first 2 weeks. During the last week of the cycle she had started to feel a lot better, but she then fell again when she stepped in a hole and she sustained a fracture to her proximal left humerus. Both fractures have been managed conservatively. She then proceeded with cycle 2 of her chemotherapy on 07/02/2019. With that cycle she was given scheduled hydration, but her dosages remained the same. She was able to tolerate it with acceptable toxicity. She then continued with cycle 3 on 07/23/2019, with cycle 4 on 08/13/2019, with cycle 5 on 09/03/2019, and with cycle 6 on 09/24/2019. During that time, she required frequent hydration, but she continued to tolerate the chemotherapy with acceptable toxicity. She returned on 10/19/2021 continue her systemic adjuvant therapy with Herceptin/Perjeta at the 3-week dosing schedule. On 11/08/2019 she underwent left modified radical mastectomy and right simple mastectomy. Pathology on the left breast showed sclerotic mass measuring 1.4 x 2.0 x 0.7 cm, but with no residual carcinoma and no involvement in 12 axillary lymph nodes, consistent with complete response to neoadjuvant therapy. The right breast showed benign pathology. She then continued treatment at 3-week intervals. As of 02/07/2020 she received her 6th cycle. She is seen for a follow-up visit. She has not been feeling good. For the past week she has been significantly more fatigued, and she has been having nausea/vomiting on a daily basis, mainly in the evening. She complains that she hurts all over. She has pain particularly in the right shoulder and in her left wrist. She has been seeing Dr. Payton, and they are considering surgical intervention for the problems with the left wrist and hand. She has good appetite. She is not having fever, night sweats, or hot flashes. She complains that she is having tinnitus. She has a smoker's cough. She does not complain of shortness of breath or chest pain. Her bowels are loose most of the time. She has frequent urination. She is not having headache. She does have dizziness with the tinnitus. She has numbness/tingling in her hands and feet, but no worse. Medications: DULoxetine HCl 1 Capsule (of 60 mg) Capsule Delayed Release Particles Oral daily, DULoxetine HCl 1 Capsule (of 30 mg) Capsule Delayed Release Particles Oral daily, Levemir 42 Units (of 100 Units/mL) Subcutaneous b.i.d., Levo-T 1 Tablet (of .5 mcg) Oral daily, Losartan Potassium 1 Tablet (of 25 mg) Oral daily, Marinol 1 Capsule (of 2.5 mg) Oral b.i.d. PRN, NovoLOG 15 Units (of 100 Units/mL) Subcutaneous t.i.d., oxyCODONE HCl 1 Tablet (of 10 mg) Oral four times a day PRN, Polytrim 1 Drop(s) (of 74026-6.1 Units/mL - %) Solution Ophthalmic q 3 hours PRN, Protonix 1 Tablet (of 20 mg) Tablet, enteric coated Oral daily, traMADol HCl 1 - 2 Tablet (of 50 mg) Oral q 6 hours PRN Allergies: NORBERTO Inhibitors, NSAIDs, and Ozempic. Review of Systems: Constitutional - She has not been feeling good for about a week. She is working full-time. Her appetite is good and weight is down about 9 pounds. No fever, night sweats, or hot flashes. ECOG score is 1, ENMT - No sinus congestion/drainage. No mouth sores. No sore throat or difficulty swallowing. She is having intermittent tinnitus, Hematologic/Lymphatic - No abnormal bruising or bleeding, Respiratory - No shortness of breath. She has a chronic smoker's cough. No pleuritic pain or hemoptysis, Cardiovascular - No angina pain. No palpitations, Gastrointestinal - She is having nausea with vomiting, this is occuring at night. Her heartburn is adquately controlled with Protonix. She is having loose stools. No constipation. No blood in the stool or black stools, Genitourinary (F) - No dysuria or hematuria. She has urinary frequency. No urgency or incontinence, Musculoskeletal - She is having significant pain in her right shoulder and in her left wrist/hand. She also has generalized aches, Integumentary - Her incisions are healing well, there is no redness or drainage or signs of infections, Neurologic - No headache or dizziness. She has numbness and tingling in her hands and feet. No other focal neurologic symptoms, Psychiatric - No anxiety or depression. She is not sleeping well. Vital Signs: Performed on Feb 28, 2020 10:42 Height - 71.50 in Weight - 222.6 lbs (LOW) BSA - 2.22 sq.m BMI - 30.61 (HIGH) Temperature - 97.8 F (LOW) Pulse - 108 /min (HIGH) Respiration - 24 /min BP - 161/97 mm(hg) (HIGH) O2 Sat - 95 % (LOW) Pain - 8 Physical Examination: Constitutional - She appears somewhat weak generally, Eyes - Sclerae nonicteric. Conjunctivae clear, ENMT - No lesions noted in the oral cavity, Hematologic/Lymphatic - No cervical or clavicular adenopathy, Respiratory - Lungs are clear with good air movement bilaterally, Cardiovascular - Heart rhythm is regular. There is a II/ systolic murmur. There is no gallop or rub noted, Breasts - There are no chest wall lesions noted, and the chest wall appears well-healed bilaterally. However, it has healed inconsistently, so that it has somewhat of a lumpy appearance, Abdomen - Soft. Liver and spleen are not enlarged. There is no abdominal mass or ascites noted and there is no inguinal adenopathy, Extremities - No edema, Integumentary - Her skin is generally dry and red, Neurologic - No focal neurologic deficits noted. Lab/Imaging: CBC shows hemoglobin 14.7 g, white blood cell count 10,000,and platelet count 271,000. Comprehensive metabolic profile shows moderately elevated alkaline phosphatase of 178/105 IU/L. SGPT is slightly elevated at 39/33 you can thing transfer text U/L with normal SGOT and normal bilirubin. Her nonfasting blood sugar is significantly elevated, now over 500 mg/dL. Impression: 1. Patient with grade 2 infiltrating ductal carcinoma of the left breast, Stage IB (T2, N1, M0), ER/NV positive and HER-2/kelsie positive. Staging PET/CT was requested but delayed because of insurance issues. 2. She underwent ultrasound-guided needle biopsy of left breast mass on 05/08/2019, and she underwent ultrasound-guided needle biopsy of left axillary lymph node on 05/22/2019. Her other medical illnesses include: 3. Hypertension. 4. Type II diabetes. 5. Peripheral neuropathy. 6. GERD. 7. Hypothyroidism. 8. History of emphysematous pyelonephritis. She began cycle 1 of neoadjuvant TCH-P on 06/11/2019. Her treatment was complicated by headache and dizziness, nausea/vomiting, diarrhea, and stomatitis. She sustained a fracture to the right proximal humerus when she passed out at home on day 3. She required hospitalization for IV hydration at day 6. Her symptoms subsequently improved, but she then sustanined a fracture to the proximal left humerus when she stepped in a hole and fell. Both fractures have been managed conservatively. She was able to continue with cycle 2 of her chemotherapy on 07/02/2019, with cycle 3 on 07/23/2019, with cycle 4 on 08/13/2019, with cycle 5 on 09/03/2019, and with cycle 6 on 09/24/2019. During that time, she did receive frequent IV hydration, and she was able to tolerate the chemotherapy with acceptable toxicity. As of 10/19/2019 she continued systemic adjuvant therapy with cycle 1 of Herceptin/Perjeta. On 11/08/2019 she underwent left modified radical mastectomy and right simple mastectomy. Pathology on the left breast showed r a sclerotic mass measuring 1.4 x 2.0 x 0.7 cm, but there was no residual carcinoma in the breast and no involvement in 12 axillary lymph nodes, consistent with complete response to neoadjuvant therapy. The right breast pathology was benign. She then continued treatment with Herceptin/Perjeta at 3-week intervals. She received cycle 6 on 02/07/2020. She has been tolerating it well. However, she comes in now with multiple complaints including increased fatigue, nausea/vomiting, tinnitus, and increased generalized pain. She has been showing a gradual increase in her alkaline phosphatase. Plan: Her treatment will be put on hold. She will be scheduled for bone scan and for brain MRI. She may require additional evaluation, depending on the results. Signed By: Preston Cuellar M.D. <<Signature on File>>
== END 2020-03-04 23:59 | disposition home or self-care (01) ==
LOC: ONCMED 06:43
PROVIDERS: Nurse Practitioner; PCP Family Medicine; Visit Provider Internal Medicine Medical Oncology
DX: Z51.11 Encounter for antineoplastic chemotherapy (principal); C50.812 Malignant neoplasm of overlapping sites of left female breast; Z17.0 Estrogen receptor positive status [ER+]; D70.1 Agranulocytosis secondary to cancer chemotherapy; T45.1X5A Adverse effect of antineoplastic and immunosuppressive drugs, initial encounter; N12 Tubulo-interstitial nephritis, not specified as acute or chronic; K21.9 Gastro-esophageal reflux disease without esophagitis; I10 Essential (primary) hypertension; E03.9 Hypothyroidism, unspecified; G62.9 Polyneuropathy, unspecified; E11.9 Type 2 diabetes mellitus without complications; Z79.818 Long term (current) use of other agents affecting estrogen receptors and estrogen levels
CPT/HCPCS: 36591; 80053; 82670; 83001; 83735; 85025; 96367; 96413; 96417; 99214; J1200; J3490; J7050; J9306; J9355

== ENCOUNTER 2020-03-19 09:05 | Outpatient (CLI) | payer BC, SELFPAY ==
--- NOTE | 2020-03-19 12:56 | PC.NURSE ---
0900 Patient here for Covid pre op testing. Patient verified via name and date of . Full PPE in place to include goggles, gloves, gown and N95 mask. Specimen collected, labeled and taken to lab. Patient tolerated procedure well.
[2020-03-20 13:44] LABS: Coronavirus Lab Test PTC Negative
== END 2020-03-19 09:06 | disposition home or self-care (01) ==
PROVIDERS: PCP Family Medicine; Visit Provider Specialist
DX: Z01.812 Encounter for preprocedural laboratory examination (principal)
CPT/HCPCS: 87635

== ENCOUNTER 2020-03-20 08:09 | Outpatient (RCR) | payer BC, SELFPAY ==
--- NOTE | 2020-03-11 08:31 | MR_ITS ---
WS: [id number] MRI BRAIN WITH AND WITHOUT CONTRAST HISTORY: BREAST CA;NAUSEA/VOMITING;TINNITUS COMPARISON: CT 06/16/2019 TECHNIQUE: Multiplanar imaging performed through the brain with Prohance 17 ml's IV. No acute infarcts are seen. Portillo-white matter differentiation is well preserved. Mild chronic microva scular ischemic disease in the dima. No prior infarcts. No susceptibility artifacts or prior lacunar infarcts. Ventricles and extra-axial spaces are normal. Clivus and pituitary gland are normal. Visualized posterior fossa and brainstem are also normal. Postcontrast images are negative for masses or vascular malformations. Dural venous sinuses are normal. Paranasal sinuses: Well aerated with no significant disease. Mastoid air cells: LEFT mastoid air cell effusion. Calvarium and scalp: Normal. MR/MR head wo/w con [id number] IMPRESSION: 1. No metastatic disease to the brain. 2. No prior infarcts or significant small vessel ischemic disease.
--- NOTE | 2020-03-13 07:37 | NM_ITS ---
WS: [id number] NUCLEAR MEDICINE WHOLE BODY BONE SCAN HISTORY: BREAST CANCER COMPARISON: 08/01/2019 TECHNIQUE: The patient was injected with 25.4 mCi of Technetium 99m HDP and serial whole-body scintig zaida have been performed with anterior and posterior images. Marked increased uptake in the humeral heads and necks bilaterally, most significant anteriorly. Mode rate improvement since the prior study with less increased uptake. Consistent with history of prior b ilateral proximal humeri fractures. There are no additional areas of abnormal uptake within the skeleton to suggest metastatic disease. M ild degenerative changes at the knees bilaterally. Normal soft tissue and renal uptake. NM/NM bone scan whole body* [id number] IMPRESSION: 1. No evidence for metastatic disease to the bony skeleton. 2. Moderate improvement in the bilateral proximal humeral uptake from prior fr actures.
[2020-03-20 08:29] LABS: Basophils # 0.1 10^3/uL (0.0-0.1); Basophils % 0.5 %; Eosinophils # 0.1 10^3/uL (0.0-0.8); Eosinophils % 0.9 %; Hematocrit 42.8 % (37.0-47.0); Hemoglobin 14.2 g/dL (11.5-15.3); Lymphocytes # 2.8 10^3/uL (0.8-4.8); Lymphocytes % 28.7 %; Mean Corpuscular HGB Conc 33.2 g/dL (30.0-36.0); Mean Corpuscular Hemoglobin 31.3 pg (28.0-34.0); Mean Corpuscular Volume 94.5 fL (81-99); Mean Platelet Volume 10.6 fL (7.4-10.4); Monocytes # 0.6 10^3/uL (0.2-0.9); Monocytes % 6.6 %; Neutrophils # 6.11 10^3/uL (1.8-7.7); Neutrophils % 62.9 %; Nucleated Red Blood Cells % 0 %; Platelet Count 267 10^3/cmm (130-400); Red Blood Count 4.53 10^6/uL (4.1-5.3); Red Cell Distribution Width 12.6 % (12.1-15.1); White Blood Count 9.7 10^3/uL (4.0-10.0)
[2020-03-20 08:59] LABS: Alanine Aminotransferase 35 U/L (0-33); Alkaline Phosphatase 153 IU/L (35-105); Anion Gap 16.3 (5-19); Aspartate Amino Transferase 19 U/L (0-32); Blood Urea Nitrogen 12 mg/dL (6-20); Calcium 8.8 mg/dL (8.5-10.5); Carbon Dioxide 24 mmol/L (22-29); Chloride 99 mmol/L (98-107); Glucose 352 mg/dL (65-115); Osmolality Calculated 290 mOsm/kg (285-295); Potassium 4.3 mmol/L (3.5-5.1); Sodium 135 mmol/L (136-145); Total Bilirubin 0.5 mg/dL (0.15-1.2)
[2020-03-20] MEDS: sodium chloride 0.9% 250 ML 75 ML IV (10:20)
[2020-03-20] MEDS: acetaminophen 325 mg Tablet 650 MG PO (10:20)
--- NOTE | 2020-03-24 09:23 | ONC FU_ITS ---
[facility] Patient Note Patient: Shila Sheppard Unit #: [id number]: 1965 Dictated By: Walter GreenDate of Visit: Mar 20, 2020 Onc MED Follow-Up/Prog Note Chief Complaint: Breast cancer. History of Present Illness: Ms Sheppard is a 54 year-old woman with grade 3 infiltrating ductal carcinoma of the left breast, ER/ND positive and HER-2/kelsie positive. By clinical and pathologic evaluation and with ER/ND and HER-2/kelsie positive disease, she is stage IB (T2, N1, M0). She had presented with a palpable mass in the left breast, first noticed a month to a month and a half ago. Bilateral diagnostic mammogram with limited ultrasound of the left breast on 04/17/2019 was BI-RADS category 5, highly suspicious of malignancy. Findings included an irregular marginated spiculated soft tissue mass in the posterior inferior left breast at the 6 o'clock position measuring 3.3 x 2.8 cm. The underlying skin appeared retracted and thickened. There are no abnormalities noted in the right breast. Ultrasound-guided biopsy of the left breast mass on 05/08/2019 showed grade 2 infiltrating ductal carcinoma. The best prognostic profile showed ER positive at 87% and ND positive at 41%. The tumor was positive for overexpression of HER-2/kelsie, 3+ by IHC and amplification ratio by FISH of 3.8 with 13.3 HER-2 copies/cell. The Ki-67 was unfavorable at 24%. Dr Cuellar had seen her initially on 05/18/2019. She was recommended to undergo neoadjuvant chemotherapy with TCH-P. Her baseline echocardiogram showed normal LV function with estimated ejection fraction 65%. Staging PET/CT also was recommended but delayed because of insurance issues. Her other medical illnesses include hypertension, type II diabetes with peripheral neuropathy, GERD, and hypothyroidism. She has a history of emphysematous pyelonephritis. Her surgical history includes vaginal hysterectomy with unilateral oophorectomy in 2008. She does not recall ever having hot flashes or other indications of menopause. She has a history of smoking 1/2 pack of cigarettes daily for 30 years. INTERIM HISTORY: She began cycle 1 of TCH-P on 06/11/2019. She was given first cycle prophylaxis with Neulasta. Her treatment was complicated by severe headache and dizziness for several days and subsequently by nausea/vomiting and diarrhea. On day 3 she passed out at home, sustaining a fracture to the proximal right humerus. At day 6 she was admitted to the hospital because of intractable nausea and diarrhea. The maximum diarrhea was estimated at 6 stools per day. She also developed sore mouth, which lasted for about a week. She was very weak generally and had poor appetite for the first 2 weeks. During the last week of the cycle she had started to feel a lot better, but she then fell again when she stepped in a hole and she sustained a fracture to her proximal left humerus. Both fractures have been managed conservatively. She then proceeded with cycle 2 of her chemotherapy on 07/02/2019. With that cycle she was given scheduled hydration, but her dosages remained the same. She was able to tolerate it with acceptable toxicity. She then continued with cycle 3 on 07/23/2019, with cycle 4 on 08/13/2019, with cycle 5 on 09/03/2019, and with cycle 6 on 09/24/2019. During that time, she required frequent hydration, but she continued to tolerate the chemotherapy with acceptable toxicity. She returned on 10/19/2021 continue her systemic adjuvant therapy with Herceptin/Perjeta at the 3-week dosing schedule. On 11/08/2019 she underwent left modified radical mastectomy and right simple mastectomy. Pathology on the left breast showed sclerotic mass measuring 1.4 x 2.0 x 0.7 cm, but with no residual carcinoma and no involvement in 12 axillary lymph nodes, consistent with complete response to neoadjuvant therapy. The right breast showed benign pathology. She then continued treatment at 3-week intervals. As of 02/07/2020 she received her 6th cycle. Ms. Sheppard is here today for follow-up and resume her Herceptin Perjeta. Her last dose was February 07, 2020. She has been on delay due to COVID concerns. An employee at her snf did test positive however there have been no further cases identified within the facility. She was then delayed for possible surgery of her wrist and shoulder. The wrist surgery scheduled for tomorrow and we felt we need to proceed with the Herceptin Perjeta due to the extensive delay. She has no new concerns today. She of course has left wrist pain thus for the surgery tomorrow. She states her right shoulder continues to bother her but they will work that up after her wrist surgery and she heals from that. She is following with both these issues with Dr. Payton. She states that she feels good today. Her blood sugars are running better at home per her report. I suspect she is noncompliant with her diet as she mentioned that she had coffee and creamer this morning. She denies any fever or chills. She said no mouth sores sore throat or difficulty swallowing. She denies any shortness of breath orthopnea. She denies any lower extremity edema. She states the diarrhea can generally be controlled with Imodium. She states however she did remember that she had nausea with her last treatment but was controlled with antiemetics at home. She states she feels good today and has no new concerns. Her ECOG is 0. Past Medical History: Emphysematous pyelonephritis Gastroesophageal reflux disease Hypertension Hypothyroidism Peripheral neuropathy Type II diabetes Left proximal humeral fracture in 2019 Right proximal humeral fracture in 2019 Past Surgical History: Cholecystectomy Excision of Holly's neuroma Subtotal thyroidectomy Right subcclavian [id number] Nice in 2018 Left breast lumpectomy for benign disease in 2014 Vaginal hysterectomy with unilateral right salpingo-oophorectomy in 2008 Left thyroid lobectomy for multinodular goiter in 2004 Allergies: NORBERTO Inhibitors, NSAIDs, and Ozempic. Medications: DULoxetine HCl 1 Capsule (of 60 mg) Capsule Delayed Release Particles Oral daily DULoxetine HCl 1 Capsule (of 30 mg) Capsule Delayed Release Particles Oral daily Levemir 42 Units (of 100 Units/mL) Subcutaneous b.i.d. Levo-T 1 Tablet (of .5 mcg) Oral daily Losartan Potassium 1 Tablet (of 25 mg) Oral daily Marinol 1 Capsule (of 2.5 mg) Oral b.i.d. PRN NovoLOG 15 Units (of 100 Units/mL) Subcutaneous t.i.d. oxyCODONE HCl 1 Tablet (of 10 mg) Oral four times a day PRN Polytrim 1 Drop(s) (of 79403-4.1 Units/mL - %) Solution Ophthalmic q 3 hours PRN Protonix 1 Tablet (of 20 mg) Tablet, enteric coated Oral daily traMADol HCl 1 - 2 Tablet (of 50 mg) Oral q 6 hours PRN Family History: Ms. Sheppard's mother is alive. Ms. Sheppard's father is alive. Both parents are still living, father at age 78 and mother at age 76. Father has coronary artery disease and he also has been treated for prostate cancer. Her mother has polycystic kidney disease with renal failure, and she is on dialysis. One brother is in good health. There are multiple family members with breast cancer on her father's side, including 2 paternal aunts and a first cousin. At least 2 of those family members have been tested for BRCA and reportedly were negative. 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 She is a daily smoker who has smoked 0.5 packs/day for 30 years. She drinks occasionally. She has indicated exposure to the following products: cigarettes. Ms. Sheppard reports the following support systems: lives with spouse, significant other, family, or friends, lives in own house, supportive family/friends willing to assist with needs, and adequate transportation available for expected visits. Her diet consists of regular meals. She indicates her activity level as: regular exercise. Review Of Symptoms: Constitutional Denies fevers, chills, night sweats, excessive fatigue. She has lost 13 pounds since her last hospitalization. Allergic/Immunologic No reactions. Eyes Denies significant visual changes. No diplopia. No amaurosis. ENMT Denies changes in hearing, sore throat, mouth sores, difficulty or changes in swallowing ability, and/or sinus drainage. Endocrine She states her blood sugars are running better at home. Her glucose today was nonfasting. I suspect she is not very compliant with her diet. Hematologic/Lymphatic Denies easy bruising or bleeding. The patient denies any tender or palpable lymph nodes. Breasts No new concerns Respiratory Denies dyspnea on exertion, chest pain, cough or hemoptysis. Denies orthopnea. Cardiovascular Denies anginal chest pain, palpitations or orthopnea. Gastrointestinal Denies nausea, vomiting, GI bleeding, or constipation. Denies change in bowel habits and/or stool color, no heartburn or early satiety. Diarrhea resolved currently. Genitourinary (F) No hematuria, hesitancy, incontinence, vaginal bleeding, discharge or other problems with urination. Musculoskeletal Denies joint pain, swelling or redness. No decreased range of motion. Left wrist pain and right shoulder pain. She is scheduled for wrist surgery tomorrow for trigger finger . She is doing this with Dr. Payton. She states they will follow-up with the shoulder after she has her wrist surgery completed. Integumentary Denies chronic rashes, inflammation, ulcerations or skin changes. Neurologic Denies headache, blurred vision, and no areas of focal weakness or numbness. Normal gait. No sensory problems. Psychiatric Denies insomnia, depression, carole or mood swings. Vital Signs: Performed on Mar 20, 2020 12:00 Height - 71.50 in Temperature - 97.6 F (LOW) Pulse - 100 /min Respiration - 20 /min BP - 150/77 mm(hg) (HIGH) O2 Sat - 95 % (LOW) Pain - 0 Fatigue - 0 Performed on Mar 20, 2020 09:45 Height - 71.50 in Weight - 230.4 lbs (HIGH) BSA - 2.25 sq.m BMI - 31.69 (HIGH) Temperature - 97.6 F (LOW) Pulse - 109 /min (HIGH) Respiration - 18 /min BP - 151/73 mm(hg) (HIGH) O2 Sat - 95 % (LOW) Pain - 8,0 - Fully active, able to carry on all predisease activities without restrictions. (ECOG) Physical Examination: Constitutional Alert, oriented, no acute distress. Skin pink, warm and dry. Head Normocephalic; atraumatic. Eyes Conjunctivae and sclerae are clear and without icterus. Pupils are reactive and equal. Neck No jugular venous distension. Hematologic/Lymphatic No petechiae or purpura. Respiratory Lungs are clear to auscultation without rhonchi or wheezing. Cardiovascular Regular rate and rhythm of heart without murmurs,clicks, gallops or rubs. Chest Right sided venous access device has healed well and is unremarkable. Back/Spine Non-tender to palpation. Extremities No visible deformities, no cyanosis, clubbing or edema. Integumentary No rashes or lesions. Neurologic No sensory or motor deficits, normal cerebellar function, normal gait. Psychiatric Alert and oriented times three. Coherent speech. Verbalizes understanding of our discussions today. Laboratory:Test performed on Mar 20, 2020 08:10 Sodium 135 mmol/L Potassium 4.3 mmol/L Chloride 99 mmol/L CO2 24 mmol/L Anion Gap 16.3 BUN 12 mg/dL Creatinine 0.6 mg/dL Cr Clearance (Est) 166.8200 mL/min eGFR 103.0 mL/min Glucose 352 mg/dL Calcium 8.8 mg/dL Protein, Total 7.0 g/dL Albumin 4.0 g/dL Globulin 3.0 g/dL Bilirubin, Total 0.5 mg/dL ALT (SGPT) 35 U/L AST (SGOT) 19 U/L Alkaline Phosphatase 153 IU/L WBC 9.7 10 3/uL RBC 4.53 10 6/uL HGB 14.2 g/dL HCT 42.8 % MCV 94.5 fL MCH 31.3 pg MCHC 33.2 g/dL RDW 12.6 % Platelet Count 267 10 3/cmm MPV 10.6 fL Neutrophils 6.11 10 3/uL Lymphocytes 2.8 10 3/uL Monocytes 0.6 10 3/uL Eosinophils 0.1 10 3/uL Basophils 0.1 10 3/uL Neutrophil % 62.9 % Lymphocyte % 28.7 % Monocyte % 6.6 % Eosinophil % 0.9 % Basophils % 0.5 % NRBC % 0 % Test performed on Feb 07, 2020 08:10 Estradiol 10.9 pg/mL FSH 27.2 mIU/mL Magnesium 1.8 mg/dL Test performed on Dec 28, 2019 08:12 TSH 2.67 uIU/mL Test performed on Oct 15, 2019 08:30 CBC Slide Review Slide Review Perform SLIDE REVIEW AGREES WITH AUTOMATED RESULTS ST Test performed on Oct 05, 2019 08:14 Manual Bands % 36.0 % Manual Lymphs % 12 % Manual Monos % 14.0 % Metamyelocytes % 1.0 % Manual Bands Abs 11.1 10 3/cmm Manual Monocytes Abs 4.3 10 3/cmm Test performed on Sep 24, 2019 09:27 Manual Eosinophils 0 % Manual Basophils 0 % Test performed on Sep 24, 2019 08:17 Folate 11.0 ng/mL Homocysteine 5.07 umol/L Vitamin B12 1242 pg/mL Methylmalonic Acid 179 nmol/L Impression: 1. Patient with grade 2 infiltrating ductal carcinoma of the left breast, Stage IB (T2, N1, M0), ER/ND positive and HER-2/kelsie positive. Staging PET/CT was requested but delayed because of insurance issues. 2. She underwent ultrasound-guided needle biopsy of left breast mass on 05/08/2019, and she underwent ultrasound-guided needle biopsy of left axillary lymph node on 05/22/2019. Her other medical illnesses include: 3. Hypertension. 4. Type II diabetes. 5. Peripheral neuropathy. 6. GERD. 7. Hypothyroidism. 8. History of emphysematous pyelonephritis. She began cycle 1 of neoadjuvant TCH-P on 06/11/2019. Her treatment was complicated by headache and dizziness, nausea/vomiting, diarrhea, and stomatitis. She sustained a fracture to the right proximal humerus when she passed out at home on day 3. She required hospitalization for IV hydration at day 6. Her symptoms subsequently improved, but she then sustanined a fracture to the proximal left humerus when she stepped in a hole and fell. Both fractures have been managed conservatively. She was able to continue with cycle 2 of her chemotherapy on 07/02/2019, with cycle 3 on 07/23/2019, with cycle 4 on 08/13/2019, with cycle 5 on 09/03/2019, and with cycle 6 on 09/24/2019. During that time, she did receive frequent IV hydration, and she was able to tolerate the chemotherapy with acceptable toxicity. As of 10/19/2019 she continued systemic adjuvant therapy with cycle 1 of Herceptin/Perjeta. On 11/08/2019 she underwent left modified radical mastectomy and right simple mastectomy. Pathology on the left breast showed r a sclerotic mass measuring 1.4 x 2.0 x 0.7 cm, but there was no residual carcinoma in the breast and no involvement in 12 axillary lymph nodes, consistent with complete response to neoadjuvant therapy. The right breast pathology was benign. She then continued treatment with Herceptin/Perjeta at 3-week intervals. She received cycle 6 on 02/07/2020. She has been tolerating it well. However, she comes in now with multiple complaints including increased fatigue, nausea/vomiting, tinnitus, and increased generalized pain. She has been showing a gradual increase in her alkaline phosphatase. Ms. Sheppard will resume Herceptin Perjeta today. She is scheduled for wrist surgery tomorrow for carpal tunnel/trigger finger Plan: 1. Proceed with Herceptin Perjeta. This will technically be cycle 7. She has had a 6-week delay as her last treatment was February 07, 2020. 2. Continue current anti-medics and premeds as previously. She may have IV antiemetics if needed. 3. Labs from today were reviewed in detail and discussed with Ms. Sheppard and a copy was given to her. They BC 9.7, hemoglobin 14.2, platelets 267,000 ANC is 6100. Random glucose was 352 which is improved from last visit at 543. Potassium 4.3 creatinine 0.6 LFTs are normal alk phos is 153 but improved from 178. This is suspected to be due to her wrist and shoulder pain. 4. Her last limited echocardiogram was on January 21, 2020. Her ejection fraction was noted to be 58% and no change from her previous exam. 5. She did have a bone scan on March 13, 2020 there was no evidence of metastatic disease to the bony skeleton. There was improvement in the bilateral proximal humeral uptake from the prior fractures. 6. She also had an MRI of the brain with and without contrast on March 11, 2020 which again reported no metastatic disease. There were no prior infarcts or small vessel ischemic disease. 7. We will plan to see her back in 3 weeks with CBC CMP at which time she will be due for cycle 8 Herceptin Perjeta. 8. Mrs. Sheppard was instructed to contact us in the interim should questions or problems arise. Signed By: Walter Green-, AOP Preston Cuellar MD <<Signature on File>>
== END 2020-04-04 23:59 | disposition home or self-care (01) ==
LOC: ONCMED 08:09
PROVIDERS: Nurse Practitioner; PCP Family Medicine; Visit Provider Internal Medicine Medical Oncology
DX: Z51.12 Encounter for antineoplastic immunotherapy (principal); C50.812 Malignant neoplasm of overlapping sites of left female breast; Z17.0 Estrogen receptor positive status [ER+]; I10 Essential (primary) hypertension; E11.42 Type 2 diabetes mellitus with diabetic polyneuropathy; K21.9 Gastro-esophageal reflux disease without esophagitis; E89.0 Postprocedural hypothyroidism; F17.210 Nicotine dependence, cigarettes, uncomplicated; M65.30 Trigger finger, unspecified finger; Z79.4 Long term (current) use of insulin; Z90.13 Acquired absence of bilateral breasts and nipples
CPT/HCPCS: 70553; 78306; 80053; 85025; 96367; 96413; 96417; 99214; A9561; A9579; J1200; J3490; J7050; J9306; J9355

== ENCOUNTER 2020-03-21 05:58 | Day surgery (SDC) | payer BC, SELFPAY ==
[2020-03-20 07:02] VITALS: BMI 30.9
[2020-03-21 06:14] VITALS: BP 253/121; PULSE 101; RESP 20; TEMP 36.3; O2SAT 96
--- NOTE | 2020-03-21 06:33 | ANES.PREANE2 ---
Pre-Anesthetic Assessment Pre-Anesthetic Assessment: Height/Weight: Height 1.8 m Weight 100.698 kg Temp Pulse Resp BP Pulse Ox 97.3 F L 101 H 20 H 253/121 96 03/21/20 06:14 03/21/20 06:14 03/21/20 06:14 03/21/20 06:14 03/21/20 06:14 Preop Diagnosis: Infiltrative left breast cancer, status post neoadjuvant therapy. Proposed Procedure: Operation Date: 03/18/20 15:15 Proposed Procedures p Dequervain Release [id number] M65.332 M65.4(Left) - Zoey Payton MD s Long Trigger Finger Release(Left) - Zoey Payton MD Operation Date: 03/21/20 07:00 Proposed Procedures p Dequervain Release [id number] M65.332 M65.4(Left) - Zoey Payton MD s Long Trigger Finger Release(Left) - Zoey Payton MD Familial anesthetic complications: None Was Beta Carri taken within 24 hours: N/A Last intake: Intake NPO > 8hrs Last Liquid Date 03/20/20 Last Solid Date 03/20/20 Social: Social History: Tobacco and No alcohol Exam: Pre-Anes Outpt Exam: alert, oriented x 3, clear to auscultation bilaterally and regular rate & rhythm Airway: Cervical ROM: WNL MP: 4 Dentition: Other (missing) Pulmonary: Pulmonary: None reported CV/HEM: CV/HEM: HTN : Comments: emphysematous pyeloneophritis hx GI: GI: GERD Metabolic: Metabolic: DM, Hyperlipidemia, Morbid obesity and Thyroid Neuropsych: Neuropsych: None reported Anesthetic Plan: ASA status: 3 Anesthesia: MAC and Regional (specify below) Risk of > 500 ml blood loss (7ml/kg in children): No PFSH Anesthesia PFSH: Medical History (Updated 03/21/20 @ 06:26 by Nicolette Wolfe) Chronic diarrhea Emphysematous pyelonephritis GERD (gastroesophageal reflux disease) Hypertension Hypothyroidism Infiltrating ductal carcinoma Influenza Mouth ulcers Peripheral neuropathy Port-A-Cath in place Smoker Type 2 diabetes mellitus Surgical History H/O unilateral oophorectomy H/O vaginal hysterectomy Social History Smoking and tobacco status: current every day smoker Data Anesthesia Cardiac Studies: No Data to Display
[2020-03-21] MEDS: sodium chloride 0.9% 1,000 ML 75 ML IV (07:01)
--- NOTE | 2020-03-21 07:01 | W.PM.OPSUD ---
Surgery/Procedure H&P Update DATE OF PROCEDURE: March 21, 2020 DATE H&P PERFORMED: 02/25/20 H&P UPDATE INFORMATION: I have reviewed H&P completed within last 30 days, I have examined patient prior to procedure and H&P is in [facility] [place] EMR on date indicated PREOP DIAGNOSIS: Left DeQuervain's release and Long Finger triggering PLANNED PROCEDURE: Operation Date: 03/21/20 07:00 Proposed Procedures p Dequervain Release [id number] M65.332 M65.4(Left) - Zoey Payton MD s Long Trigger Finger Release(Left) - Zoey Payton MD
--- NOTE | 2020-03-21 08:20 | ANE.PACU2 ---
Inpatient post-anesthesia follow up: Airway intact: Yes Vital signs: Temperature 97.3 F Pulse Rate 101 Respiratory Rate 20 Blood Pressure 253/121 Pulse Oximetry 96 Oxygen Delivery Me thod Room Air Oxygen Flow Rate Fraction of Inspir ed Oxygen Hydration adequate: Yes Nausea and vomiting: No Pain level: 1 Mental status: Baseline
--- NOTE | 2020-03-21 08:44 | PM.OP ---
Operative Report Date of procedure: March 21, 2020 Pre-op Diagnosis: Left DeQuervain's release and Long Finger triggering Post-op diagnosis: same Procedure Done: Left de Quervain's tenosynovitis release and left long finger trigger finger release Specimens removed/disposition: None Pathology: none sent Surgeon: Zoey Payton Paradichlorobenzene Tender: None Anesthesia: MAC (With [place] block) Estimated blood loss (mL): 5 Tourniquet time (min): 48 (At 250 mmHg) IV fluids (mL): 250 Urine output (mL): 0 Urine output: No Padron Complications: None Findings: Inflammation around the tendons both in de Quervain's canal and during trigger finger release. Condition: stable Disposition: same day Brief History: This 55-year-old woman presented with complaints of severe triggering of the left long finger as well as de Quervain's tenosynovitis. The patient in the preop area also mention she was beginning to have some triggering of her index finger, but this had not become a chronic situation for her. She wished to proceed with long trigger finger release and de Quervain's release as well. Procedure: Patient was brought to the operating theater. She was placed on the operating room table. A Stephanie block supplemented with MAC anesthesia was administered without difficulty. Patient tolerated it well. A tourniquet was placed high on the arm and was elevated for the Stephanie block. The [place] block was administered per anesthesia. The patient's left upper extremity was prepped and draped in usual fashion utilizing DuraPrep. It was draped free. Tourniquet time was 48 minutes. Surgical pause was performed prior to commencement of the surgical procedure. At the time of the surgical pause we identified the site and side of surgery. We also identified the patient's identity and appropriate administration of IV antibiotics. The radial styloid was palpated and an incision was made horizontally approximately 1 cm proximal to the tip of the radial styloid. Dissection continued through the skin and dermis but following that soft tissue blunt dissection was accomplished to prevent injury to the superficial radial nerve branches in the area. We were able to retract these branches and the first dorsal compartment was visualized. The fibrous tissue over the first dorsal compartment was noted to be quite thickened. This was released longitudinally using a combination of scalpel and scissors. We then confirmed that each of the tendons at been released. There were 2 abductor pollicis longus tendons and one extensor pollicis brevis tendon. All of these were released at least a centimeter distal to the radial styloid and proximally as well. There was no further compression across the tendons. The tendons were pulled up out of the tunnel for evaluation. Following this, the wound was irrigated. Attention was then directed to closure. Closure was accomplished with 3-0 Monocryl as a subcuticular suture was placed in a running fashion. We injected the wound with local anesthetic. This was followed by Exofin, Telfa and a Tegaderm. An incision then was made along the distal palmar crease beneath the long finger. Dissection continued through the skin to the subcutaneous tissues using a scalpel. Blunt dissection was then utilized to spread soft tissues and allow access to the A1 jack. The A1 jack was identified. It was then incised longitudinally and sharply using a knife. This was accomplished without difficulty and atraumatically. Once the A1 jack was released, tendons were brought up out of the wound and evaluated. There were no gross masses on the tendons. Tendons were returned to normal position. We then irrigated the wound and subsequently closed it with 3-0 nylon with an interrupted mattress type suture. We injected the wound with local anesthetic. This was followed by Exofin, Telfa and a Tegaderm. Further sterile dressing was then placed consisting of fluffed fluffs, soft roll, and an Mohamud wrap. The patient was returned to recovery in satisfactory condition. She will be discharged home to follow-up with me in the office. There were no complications and no specimens. Associated Problem List Diagnoses (1) Trigger finger, left middle finger: (2) De Quervain's tenosynovitis, left:
[2020-03-21 09:02] VITALS: BP 133/85; PULSE 84; RESP 18; TEMP 36.1; O2SAT 93
[2020-03-21 09:05] VITALS: BP 156/87; PULSE 77; RESP 18; O2SAT 93
== END 2020-03-21 09:45 | disposition home or self-care (01) ==
PROVIDERS: PCP Family Medicine; Visit Provider Specialist
PROC: (CPT 25000; principal; 2020-03-21 07:00)
PROC: (CPT 26055; 2020-03-21 07:00)
DX: M65.4 Radial styloid tenosynovitis [de Quervain] (principal); M65.332 Trigger finger, left middle finger; I10 Essential (primary) hypertension; K21.9 Gastro-esophageal reflux disease without esophagitis; E78.5 Hyperlipidemia, unspecified; E66.01 Morbid (severe) obesity due to excess calories; Z68.31 Body mass index [BMI] 31.0-31.9, adult; E11.42 Type 2 diabetes mellitus with diabetic polyneuropathy; F17.210 Nicotine dependence, cigarettes, uncomplicated
CPT/HCPCS: 25000; 26055; 12345; 96365; J0131; J1642; J2250; J2704; J3010; J3490; J7030

== ENCOUNTER 2020-05-01 05:38 | Outpatient (RCR) | payer BC, SELFPAY ==
[2020-04-10 08:24] LABS: Basophils # 0.1 10^3/uL (0.0-0.1); Basophils % 0.8 %; Eosinophils # 0.1 10^3/uL (0.0-0.8); Eosinophils % 1.2 %; Hemoglobin 14.4 g/dL (11.5-15.3); Lymphocytes % 30.4 %; Mean Corpuscular HGB Conc 33.5 g/dL (30.0-36.0); Mean Corpuscular Hemoglobin 31.9 pg (28.0-34.0); Mean Corpuscular Volume 95.1 fL (81-99); Mean Platelet Volume 10.6 fL (7.4-10.4); Monocytes # 0.7 10^3/uL (0.2-0.9); Monocytes % 6.7 %; Neutrophils # 6.01 10^3/uL (1.8-7.7); Neutrophils % 60.5 %; Nucleated Red Blood Cells % 0 %; Platelet Count 251 10^3/cmm (130-400); Red Blood Count 4.52 10^6/uL (4.1-5.3); Red Cell Distribution Width 12.6 % (12.1-15.1); White Blood Count 9.9 10^3/uL (4.0-10.0)
[2020-04-10 08:40] LABS: Alanine Aminotransferase 34 U/L (0-33); Albumin Level 4.1 g/dL (3.5-5.2); Alkaline Phosphatase 142 IU/L (35-105); Anion Gap 12.1 (5-19); Aspartate Amino Transferase 19 U/L (0-32); Blood Urea Nitrogen 16 mg/dL (6-20); Calcium 8.9 mg/dL (8.5-10.5); Carbon Dioxide 25 mmol/L (22-29); Chloride 102 mmol/L (98-107); Glucose 273 mg/dL (65-115); Osmolality Calculated 286 mOsm/kg (285-295); Potassium 4.1 mmol/L (3.5-5.1); Sodium 135 mmol/L (136-145); Total Bilirubin 0.3 mg/dL (0.15-1.2); Total Protein 7.1 g/dL (6.6-8.7)
--- NOTE | 2020-04-10 16:00 | ONC FU_ITS ---
[facility] Patient Note Patient: Shila Sheppard Unit #: [id number]: [id number] Dictated By: Walter GreenDate of Visit: Apr 10, 2020 Onc MED Follow-Up/Prog Note Chief Complaint: Breast cancer. History of Present Illness: Ms Sheppard is a 54 year-old woman with grade 3 infiltrating ductal carcinoma of the left breast, ER/AK positive and HER-2/kelsie positive. By clinical and pathologic evaluation and with ER/AK and HER-2/kelsie positive disease, she is stage IB (T2, N1, M0). She had presented with a palpable mass in the left breast, first noticed a month to a month and a half ago. Bilateral diagnostic mammogram with limited ultrasound of the left breast on 04/17/2019 was BI-RADS category 5, highly suspicious of malignancy. Findings included an irregular marginated spiculated soft tissue mass in the posterior inferior left breast at the 6 o'clock position measuring 3.3 x 2.8 cm. The underlying skin appeared retracted and thickened. There are no abnormalities noted in the right breast. Ultrasound-guided biopsy of the left breast mass on 05/08/2019 showed grade 2 infiltrating ductal carcinoma. The best prognostic profile showed ER positive at 87% and AK positive at 41%. The tumor was positive for overexpression of HER-2/kelsie, 3+ by IHC and amplification ratio by FISH of 3.8 with 13.3 HER-2 copies/cell. The Ki-67 was unfavorable at 24%. Dr Cuellar had seen her initially on 05/18/2019. She was recommended to undergo neoadjuvant chemotherapy with TCH-P. Her baseline echocardiogram showed normal LV function with estimated ejection fraction 65%. Staging PET/CT also was recommended but delayed because of insurance issues. Her other medical illnesses include hypertension, type II diabetes with peripheral neuropathy, GERD, and hypothyroidism. She has a history of emphysematous pyelonephritis. Her surgical history includes vaginal hysterectomy with unilateral oophorectomy in 2008. She does not recall ever having hot flashes or other indications of menopause. She has a history of smoking 1/2 pack of cigarettes daily for 30 years. INTERIM HISTORY: She began cycle 1 of TCH-P on 06/11/2019. She was given first cycle prophylaxis with Neulasta. Her treatment was complicated by severe headache and dizziness for several days and subsequently by nausea/vomiting and diarrhea. On day 3 she passed out at home, sustaining a fracture to the proximal right humerus. At day 6 she was admitted to the hospital because of intractable nausea and diarrhea. The maximum diarrhea was estimated at 6 stools per day. She also developed sore mouth, which lasted for about a week. She was very weak generally and had poor appetite for the first 2 weeks. During the last week of the cycle she had started to feel a lot better, but she then fell again when she stepped in a hole and she sustained a fracture to her proximal left humerus. Both fractures have been managed conservatively. She then proceeded with cycle 2 of her chemotherapy on 07/02/2019. With that cycle she was given scheduled hydration, but her dosages remained the same. She was able to tolerate it with acceptable toxicity. She then continued with cycle 3 on 07/23/2019, with cycle 4 on 08/13/2019, with cycle 5 on 09/03/2019, and with cycle 6 on 09/24/2019. During that time, she required frequent hydration, but she continued to tolerate the chemotherapy with acceptable toxicity. She returned on 10/19/2021 continue her systemic adjuvant therapy with Herceptin/Perjeta at the 3-week dosing schedule. On 11/08/2019 she underwent left modified radical mastectomy and right simple mastectomy. Pathology on the left breast showed sclerotic mass measuring 1.4 x 2.0 x 0.7 cm, but with no residual carcinoma and no involvement in 12 axillary lymph nodes, consistent with complete response to neoadjuvant therapy. The right breast showed benign pathology. She then continued treatment at 3-week intervals. As of 02/07/2020 she received her 6th cycle. Ms. Sheppard is here today for follow-up and resume her Herceptin Perjeta. Her last dose was on March 20/2020 and before that was on February 07, 2020. She has been on delay due to COVID concerns. 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 She was then delayed for possible surgery of her wrist and shoulder. The LEFT wrist surgery was performed on 03/21/2020. She states the pain overall in her wrist is some better however she continues to have drawing in my fingers and now it is in the right hand as well . She states her right shoulder continues to bother Her quite a bit. She does not feel that the oxycodone 10 mg is working extremely well for her. She does not take it while she is at work so she is waiting until the pain is pretty significant before she does take it however she has tried taking 2 tablets which she states just knock me out . When asked if she had tried other agents in the past for other pain we determined that she had taken hydromorphone in the past and she thought it had helped but had been long enough she was not sure. She is willing to try that. Would like to find something that she could tolerate that would not make her sleepy and that she could not get her work done but yet we control her pain. She is willing to try the hydromorphone for now. She states Dr. Payton has decided that she will does not want to do her right shoulder repair until she is done with her cancer treatment. Tentatively she should be done with Herceptin Perjeta in June 2020. Her first dose of Herceptin Perjeta was on June 11, 2019. However she has had some delays in her treatment. She will need a total of 17 cycles of Herceptin/Perjeta. Today is #14 by my count. She denies any fever or chills. She said no mouth sores sore throat or difficulty swallowing. She denies any shortness of breath orthopnea. She denies any lower extremity edema. She states the diarrhea can generally be controlled with Imodium. She states however she did remember that she had nausea with her last treatment but was controlled with antiemetics at home. She states she feels good today (other than the shoulder pain) and has no new concerns. Her ECOG is 0. Past Medical History: Emphysematous pyelonephritis Gastroesophageal reflux disease Hypertension Hypothyroidism Peripheral neuropathy Type II diabetes Left proximal humeral fracture in 2019 Right proximal humeral fracture in 2019 Past Surgical History: Cholecystectomy Excision of Holly's neuroma Subtotal thyroidectomy Right subcclavian Imyx-i-eimm-Dr Nice in 2019 Left breast lumpectomy for benign disease in 2014 Vaginal hysterectomy with unilateral right salpingo-oophorectomy in 2008 Left thyroid lobectomy for multinodular goiter in 2004 Allergies: NORBERTO Inhibitors, NSAIDs, and Ozempic. Medications: DULoxetine HCl 1 Capsule (of 60 mg) Capsule Delayed Release Particles Oral daily DULoxetine HCl 1 Capsule (of 30 mg) Capsule Delayed Release Particles Oral daily Levemir 42 Units (of 100 Units/mL) Subcutaneous b.i.d. Levo-T 1 Tablet (of .5 mcg) Oral daily Losartan Potassium 1 Tablet (of 25 mg) Oral daily Marinol 1 Capsule (of 2.5 mg) Oral b.i.d. PRN NovoLOG 15 Units (of 100 Units/mL) Subcutaneous t.i.d. oxyCODONE HCl 1 Tablet (of 10 mg) Oral four times a day PRN Polytrim 1 Drop(s) (of 94408-4.1 Units/mL - %) Solution Ophthalmic q 3 hours PRN Protonix 1 Tablet (of 20 mg) Tablet, enteric coated Oral daily traMADol HCl 1 - 2 Tablet (of 50 mg) Oral q 6 hours PRN Family History: Ms. Sheppard's mother is alive. Ms. Sheppard's father is alive. Both parents are still living, father at age 78 and mother at age 76. Father has coronary artery disease and he also has been treated for prostate cancer. Her mother has polycystic kidney disease with renal failure, and she is on dialysis. One brother is in good health. There are multiple family members with breast cancer on her father's side, including 2 paternal aunts and a first cousin. At least 2 of those family members have been tested for BRCA and reportedly were negative. 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 She is a daily smoker who has smoked 0.5 packs/day for 30 years. She drinks occasionally. She has indicated exposure to the following products: cigarettes. Ms. Sheppard reports the following support systems: lives with spouse, significant other, family, or friends, lives in own house, supportive family/friends willing to assist with needs, and adequate transportation available for expected visits. Her diet consists of regular meals. She indicates her activity level as: regular exercise. Review Of Symptoms: Constitutional Denies fevers, chills, night sweats, excessive fatigue. Allergic/Immunologic No reactions. Eyes Denies significant visual changes. No diplopia. No amaurosis. ENMT Denies changes in hearing, sore throat, mouth sores, difficulty or changes in swallowing ability, and/or sinus drainage. Endocrine She states her blood sugars are running better at home. Her glucose today was nonfasting. She reports it was 206 at home this am before her lab draw here. It was reported as 273 per [facility] lab. Hematologic/Lymphatic Denies easy bruising or bleeding. The patient denies any tender or palpable lymph nodes. Breasts No new concerns Respiratory Denies dyspnea on exertion, chest pain, cough or hemoptysis. Denies orthopnea. Cardiovascular Denies anginal chest pain, palpitations or orthopnea. Gastrointestinal Denies nausea, vomiting, GI bleeding, or constipation. Denies change in bowel habits and/or stool color, no heartburn or early satiety. Diarrhea resolved currently. Genitourinary (F) No hematuria, hesitancy, incontinence, vaginal bleeding, discharge or other problems with urination. Musculoskeletal Denies joint pain, swelling or redness. No decreased range of motion. Left wrist pain and right shoulder pain. She did have surgery recently for trigger finger . She is doing this with Dr. Payton. She states they will follow-up with the shoulder after she has completed her cancer treatment. Integumentary Denies chronic rashes, inflammation, ulcerations or skin changes. Neurologic Denies headache, blurred vision, and no areas of focal weakness or numbness. Normal gait. No sensory problems. Psychiatric Denies insomnia, depression, carole or mood swings. Vital Signs: Performed on Apr 10, 2020 13:00 Height - 71.50 in Temperature - 98 F (LOW) Pulse - 89 /min Respiration - 18 /min BP - 137/77 mm(hg) O2 Sat - 97 % Pain - 0 Fatigue - 0 Performed on Apr 10, 2020 10:37 Height - 71.50 in Weight - 230.6 lbs (HIGH) BSA - 2.25 sq.m BMI - 31.71 (HIGH) Temperature - 97.5 F (LOW) Pulse - 74 /min Respiration - 18 /min BP - 159/97 mm(hg) (HIGH) O2 Sat - 99 % Pain - 5,0 - Fully active, able to carry on all predisease activities without restrictions. (ECOG) Physical Examination: Constitutional Alert, oriented, no acute distress. Skin pink, warm and dry. Head Normocephalic; atraumatic. Eyes Conjunctivae and sclerae are clear and without icterus. Pupils are reactive and equal. Neck No jugular venous distension. Hematologic/Lymphatic No petechiae or purpura. Respiratory Lungs are clear to auscultation without rhonchi or wheezing. Cardiovascular Regular rate and rhythm of heart without murmurs,clicks, gallops or rubs. Chest Right sided venous access device has healed well and is unremarkable. Back/Spine Non-tender to palpation. Extremities No visible deformities, no cyanosis, clubbing or edema. Integumentary No rashes or lesions. Neurologic No sensory or motor deficits, normal cerebellar function, normal gait. Psychiatric Alert and oriented times three. Coherent speech. Verbalizes understanding of our discussions today. Laboratory:Test performed on Apr 10, 2020 08:05 Sodium 135 mmol/L Potassium 4.1 mmol/L Chloride 102 mmol/L CO2 25 mmol/L Anion Gap 12.1 BUN 16 mg/dL Creatinine 0.6 mg/dL Cr Clearance (Est) 166.8200 mL/min eGFR 103.0 mL/min Glucose 273 mg/dL Calcium 8.9 mg/dL Protein, Total 7.1 g/dL Albumin 4.1 g/dL Globulin 3.0 g/dL Bilirubin, Total 0.3 mg/dL ALT (SGPT) 34 U/L AST (SGOT) 19 U/L Alkaline Phosphatase 142 IU/L WBC 9.9 10 3/uL RBC 4.52 10 6/uL HGB 14.4 g/dL HCT 43.0 % MCV 95.1 fL MCH 31.9 pg MCHC 33.5 g/dL RDW 12.6 % Platelet Count 251 10 3/cmm MPV 10.6 fL Neutrophils 6.01 10 3/uL Lymphocytes 3.0 10 3/uL Monocytes 0.7 10 3/uL Eosinophils 0.1 10 3/uL Basophils 0.1 10 3/uL Neutrophil % 60.5 % Lymphocyte % 30.4 % Monocyte % 6.7 % Eosinophil % 1.2 % Basophils % 0.8 % NRBC % 0 % Test performed on Feb 07, 2020 08:10 Estradiol 10.9 pg/mL FSH 27.2 mIU/mL Magnesium 1.8 mg/dL Test performed on Dec 28, 2019 08:12 TSH 2.67 uIU/mL Test performed on Oct 15, 2019 08:30 CBC Slide Review Slide Review Perform SLIDE REVIEW AGREES WITH AUTOMATED RESULTS ST Impression: 1. Patient with grade 2 infiltrating ductal carcinoma of the left breast, Stage IB (T2, N1, M0), ER/AK positive and HER-2/kelsie positive. Staging PET/CT was requested but delayed because of insurance issues. 2. She underwent ultrasound-guided needle biopsy of left breast mass on 05/08/2019, and she underwent ultrasound-guided needle biopsy of left axillary lymph node on 05/22/2019. Her other medical illnesses include: 3. Hypertension. 4. Type II diabetes. 5. Peripheral neuropathy. 6. GERD. 7. Hypothyroidism. 8. History of emphysematous pyelonephritis. She began cycle 1 of neoadjuvant TCH-P on 06/11/2019. Her treatment was complicated by headache and dizziness, nausea/vomiting, diarrhea, and stomatitis. She sustained a fracture to the right proximal humerus when she passed out at home on day 3. She required hospitalization for IV hydration at day 6. Her symptoms subsequently improved, but she then sustanined a fracture to the proximal left humerus when she stepped in a hole and fell. Both fractures have been managed conservatively. She was able to continue with cycle 2 of her chemotherapy on 07/02/2019, with cycle 3 on 07/23/2019, with cycle 4 on 08/13/2019, with cycle 5 on 09/03/2019, and with cycle 6 on 09/24/2019. During that time, she did receive frequent IV hydration, and she was able to tolerate the chemotherapy with acceptable toxicity. As of 10/19/2019 she continued systemic adjuvant therapy with cycle 1 of Herceptin/Perjeta. On 11/08/2019 she underwent left modified radical mastectomy and right simple mastectomy. Pathology on the left breast showed r a sclerotic mass measuring 1.4 x 2.0 x 0.7 cm, but there was no residual carcinoma in the breast and no involvement in 12 axillary lymph nodes, consistent with complete response to neoadjuvant therapy. The right breast pathology was benign. She then continued treatment with Herceptin/Perjeta at 3-week intervals. She received cycle 6 on 02/07/2020. She has been tolerating it well. However, she comes in now with multiple complaints including increased fatigue, nausea/vomiting, tinnitus, and increased generalized pain. She has been showing a gradual increase in her alkaline phosphatase. Ms. Sheppard resumed Herceptin Perjeta on March 20, 2020 after a 6 week delay due to COVID-19. 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 Mrs Sheppard tested negative with her COVID testing. Plan: 1. Proceed with Herceptin Perjeta. This is her 14th treatment (total) of the Herceptin/Perjeta (#8 with just Herceptin/Perjeta). She had a 6-week delay from February 07, 2020 to March 20, 2020 due to COVID-19 concerns. She was tested at least twice due to work requirements and was negative each time. 2. Continue current anti-medics and premeds as previously. She may have IV antiemetics if needed. 3. Labs from today were reviewed in detail and discussed with Ms. Sheppard and a copy was given to her. WBC 9.9, hemoglobin 14.4, platelets 251,000 ANC is 6000. Random glucose was 273 which is improved from last visit at 352. Potassium 4.1 creatinine 0.6 LFTs are normal alk phos is 142 but improved from 153. This is suspected to be due to her wrist and shoulder pain. 4. Her last limited echocardiogram was on January 21, 2020. Her ejection fraction was noted to be 58% and no change from her previous exam. She will be due with her next followup for high risk drug monitoring-Herceptin/Perjeta. 5. She did have a bone scan on March 13, 2020 there was no evidence of metastatic disease to the bony skeleton. There was improvement in the bilateral proximal humeral uptake from the prior fractures. 6. She also had an MRI of the brain with and without contrast on March 11, 2020 which again reported no metastatic disease. There were no prior infarcts or small vessel ischemic disease. 7. We will plan to see her back in 3 weeks with CBC CMP at which time she will be due for her 15th dose of Herceptin Perjeta. 8. She was given a prescription per Dr Cuellar for hydromorphone 2 mg with instructions to start with 1 tablet and may take 2 tablets every 4-6 hours for pain. She was only given # 30 tablets so we could see if it works for her pain and what dose she will need if it does help with the pain. 9. Mrs. Sheppard was instructed to contact us in the interim should questions or problems arise. Signed By: Walter Green-, AOCNP Preston Cuellar MD <<Signature on File>>
[2020-05-01 08:16] LABS: Basophils # 0.1 10^3/uL (0.0-0.1); Basophils % 0.9 %; Eosinophils # 0.2 10^3/uL (0.0-0.8); Eosinophils % 1.4 %; Hematocrit 43.5 % (37.0-47.0); Hemoglobin 14.4 g/dL (11.5-15.3); Lymphocytes # 3.1 10^3/uL (0.8-4.8); Lymphocytes % 29.9 %; Mean Corpuscular HGB Conc 33.1 g/dL (30.0-36.0); Mean Corpuscular Hemoglobin 31.9 pg (28.0-34.0); Mean Corpuscular Volume 96.5 fL (81-99); Mean Platelet Volume 10.7 fL (7.4-10.4); Monocytes # 0.6 10^3/uL (0.2-0.9); Monocytes % 5.7 %; Neutrophils # 6.46 10^3/uL (1.8-7.7); Neutrophils % 61.8 %; Nucleated Red Blood Cells % 0 %; Platelet Count 272 10^3/cmm (130-400); Red Blood Count 4.51 10^6/uL (4.1-5.3); Red Cell Distribution Width 12.1 % (12.1-15.1); White Blood Count 10.4 10^3/uL (4.0-10.0)
[2020-05-01 08:54] LABS: Estmated Average Glucose 240
[2020-05-01 09:00] LABS: Alanine Aminotransferase 36 U/L (0-33); Alkaline Phosphatase 151 IU/L (35-105); Anion Gap 14.6 (5-19); Aspartate Amino Transferase 23 U/L (0-32); Blood Urea Nitrogen 13 mg/dL (6-20); Calcium 8.8 mg/dL (8.5-10.5); Carbon Dioxide 24 mmol/L (22-29); Chloride 100 mmol/L (98-107); Glucose 355 mg/dL (65-115); Osmolality Calculated 288 mOsm/kg (285-295); Potassium 4.6 mmol/L (3.5-5.1); Sodium 134 mmol/L (136-145); Thyroid Stimulating Hormone 2.51 uIU/mL (0.27-4.20); Total Bilirubin 0.3 mg/dL (0.15-1.2)
--- NOTE | 2020-05-04 16:12 | ONC FU_ITS ---
Dr. Cuellar Patient Follow-Up Note Patient: Shila Sheppard Unit #: [id number]: 1965 Dicatated By: Preston Cuellar M.D.Date of Visit:May 01, 2020 Onc Med Follow-up/Prog Note Chief Complaint: Breast cancer. History of Present Illness: This is a 54 year-old woman with grade 3 infiltrating ductal carcinoma of the left breast, ER/NM positive and HER-2/kelsie positive. By clinical and pathologic evaluation and with ER/NM and HER-2/kelsie positive disease, she is stage IB (T2, N1, M0). She had presented with a palpable mass in the left breast, first noticed a month to a month and a half ago. Bilateral diagnostic mammogram with limited ultrasound of the left breast on 04/17/2019 was BI-RADS category 5, highly suspicious of malignancy. Findings included an irregular marginated spiculated soft tissue mass in the posterior inferior left breast at the 6 o'clock position measuring 3.3 x 2.8 cm. The underlying skin appeared retracted and thickened. There are no abnormalities noted in the right breast. Ultrasound-guided biopsy of the left breast mass on 05/08/2019 showed grade 2 infiltrating ductal carcinoma. The best prognostic profile showed ER positive at 87% and NM positive at 41%. The tumor was positive for overexpression of HER-2/kelsie, 3+ by IHC and amplification ratio by FISH of 3.8 with 13.3 HER-2 copies/cell. The Ki-67 was unfavorable at 24%. I had seen her initially on 05/18/2019. She was recommended to undergo neoadjuvant chemotherapy with TCH-P. Her baseline echocardiogram showed normal LV function with estimated ejection fraction 65%. Staging PET/CT also was recommended but delayed because of insurance issues. Her other medical illnesses include hypertension, type II diabetes with peripheral neuropathy, GERD, and hypothyroidism. She has a history of emphysematous pyelonephritis. Her surgical history includes vaginal hysterectomy with unilateral oophorectomy in 2008. She does not recall ever having hot flashes or other indications of menopause. She has a history of smoking 1/2 pack of cigarettes daily for 30 years. INTERIM HISTORY: She began cycle 1 of TCH-P on 06/11/2019. She was given first cycle prophylaxis with Neulasta. Her treatment was complicated by severe headache and dizziness for several days and subsequently by nausea/vomiting and diarrhea. On day 3 she passed out at home, sustaining a fracture to the proximal right humerus. At day 6 she was admitted to the hospital because of intractable nausea and diarrhea. The maximum diarrhea was estimated at 6 stools per day. She also developed sore mouth, which lasted for about a week. She was very weak generally and had poor appetite for the first 2 weeks. During the last week of the cycle she had started to feel a lot better, but she then fell again when she stepped in a hole and she sustained a fracture to her proximal left humerus. Both fractures have been managed conservatively. She then proceeded with cycle 2 of her chemotherapy on 07/02/2019. With that cycle she was given scheduled hydration, but her dosages remained the same. She was able to tolerate it with acceptable toxicity. She then continued with cycle 3 on 07/23/2019, with cycle 4 on 08/13/2019, with cycle 5 on 09/03/2019, and with cycle 6 on 09/24/2019. During that time, she required frequent hydration, but she continued to tolerate the chemotherapy with acceptable toxicity. She returned on 10/19/2021 continue her systemic adjuvant therapy with Herceptin/Perjeta at the 3-week dosing schedule. On 11/08/2019 she underwent left modified radical mastectomy and right simple mastectomy. Pathology on the left breast showed sclerotic mass measuring 1.4 x 2.0 x 0.7 cm, but with no residual carcinoma and no involvement in 12 axillary lymph nodes, consistent with complete response to neoadjuvant therapy. The right breast showed benign pathology. She then continued treatment at 3-week intervals. As of 04/10/2020 she received her 8th cycle. She is seen for a follow-up visit. She has been feeling pretty good generally, though she says she is sleepy a lot. She has normal activity. ECOG score is 0. Her appetite is good. She has no fever, night sweats, or hot flashes. Her main complaint is that she is having significant pain in her right shoulder and arm, and surgery for that has been deferred until after she completes treatment. Her pain management has been problematic as she has had relatively poor tolerance for opiate medication. She most recently was given a trial of hydromorphone, which caused significant BOAT FUELER symptoms. She has previously had nausea and sedation with tramadol. She was not getting much benefit with hydrocodone/APAP. She has had some benefit with 10 mg immediate release oxycodone, though still with some side effect. Medications: DULoxetine HCl 1 Capsule (of 60 mg) Capsule Delayed Release Particles Oral daily, DULoxetine HCl 1 Capsule (of 30 mg) Capsule Delayed Release Particles Oral daily, Levemir 42 Units (of 100 Units/mL) Subcutaneous b.i.d., Levo-T 1 Tablet (of .5 mcg) Oral daily, Losartan Potassium 1 Tablet (of 25 mg) Oral daily, Marinol 1 Capsule (of 2.5 mg) Oral b.i.d. PRN, NovoLOG 15 Units (of 100 Units/mL) Subcutaneous t.i.d., oxyCODONE HCl 1 Tablet (of 10 mg) Oral four times a day PRN, Polytrim 1 Drop(s) (of 91541-2.1 Units/mL - %) Solution Ophthalmic q 3 hours PRN, Protonix 1 Tablet (of 20 mg) Tablet, enteric coated Oral daily, traMADol HCl 1 - 2 Tablet (of 50 mg) Oral q 6 hours PRN Allergies: NORBEROT Inhibitors, NSAIDs, and Ozempic. Review of Systems: Constitutional - She says she has been sleepy a lot, but she still has normal activity. Her appetite is good. She has no fever, night sweats, or hot flashes. ECOG score is 0, ENMT - She always has sinus drainage. No mouth sores. No sore throat or difficulty swallowing, Hematologic/Lymphatic - No abnormal bruising or bleeding, Respiratory - No shortness of breath. She has a smoker's cough. No pleuritic pain or hemoptysis, Cardiovascular - No angina pain. No palpitations, Gastrointestinal - She has a little nausea on and off. Her acid reflux is managed with Protonix. She has just occasional diarrhea. No blood in the stool or black stools, Genitourinary (F) - No dysuria or hematuria. No urinary frequency. No urgency or incontinence, Musculoskeletal - She is having significant pain in the right shoulder/arm and the surgery has been deferred until she completes her treatment. She has having issues with pain management, as she has had relatively poor tolerance for opiate medication, Integumentary - No skin rash, Neurologic - No headache or dizziness. She has neuropathy in her feet, which is unchanged, Psychiatric - No anxiety or depression. She has some difficulty sleeping. Vital Signs: Performed on May 01, 2020 10:32 Height - 71.50 in Weight - 234.2 lbs (HIGH) BSA - 2.27 sq.m BMI - 32.21 (HIGH) Temperature - 97.1 F (LOW) Pulse - 106 /min (HIGH) Respiration - 22 /min BP - 149/66 mm(hg) (HIGH) O2 Sat - 95 % (LOW) Pain - 6 Physical Examination: Constitutional - She looks pretty good generally, Eyes - Sclerae nonicteric. Conjunctivae clear, ENMT - No lesions noted in the oral cavity, Hematologic/Lymphatic - No cervical or clavicular adenopathy, Respiratory - Lungs are clear with good air movement bilaterally, Cardiovascular - Heart rhythm is regular. There is a II/ systolic murmur. There is no gallop or rub noted, Breasts - The chest wall appears well-healed bilaterally, though it has healed with somewhat of a lumpy appearance. She also appears to have somewhat prominent soft tissue overlying the sternum, but there are no chest wall lesions noted. There is no axillary adenopathy, Abdomen - Soft. Liver and spleen are not enlarged. There is no abdominal mass or ascites noted and there is no inguinal adenopathy, Extremities - No edema, Neurologic - No focal neurologic deficits noted. Lab/Imaging: Test performed on May 01, 2020 08:05 Sodium 134 mmol/L TSH 2.51 uIU/mL Potassium 4.6 mmol/L Chloride 100 mmol/L CO2 24 mmol/L Anion Gap 14.6 BUN 13 mg/dL Creatinine 0.6 mg/dL Cr Clearance (Est) 166.8200 mL/min eGFR 103.0 mL/min Glucose 355 mg/dL Calcium 8.8 mg/dL Protein, Total 7.0 g/dL Albumin 4.0 g/dL Globulin 3.0 g/dL Bilirubin, Total 0.3 mg/dL ALT (SGPT) 36 U/L AST (SGOT) 23 U/L Alkaline Phosphatase 151 IU/L Hemoglobin A1C % 10.0 % WBC 10.4 10 3/uL RBC 4.51 10 6/uL HGB 14.4 g/dL HCT 43.5 % MCV 96.5 fL MCH 31.9 pg MCHC 33.1 g/dL RDW 12.1 % Platelet Count 272 10 3/cmm MPV 10.7 fL Neutrophils 6.46 10 3/uL Lymphocytes 3.1 10 3/uL Monocytes 0.6 10 3/uL Eosinophils 0.2 10 3/uL Basophils 0.1 10 3/uL Neutrophil % 61.8 % Lymphocyte % 29.9 % Monocyte % 5.7 % Eosinophil % 1.4 % Basophils % 0.9 % NRBC % 0 % Impression: 1. Patient with grade 2 infiltrating ductal carcinoma of the left breast, Stage IB (T2, N1, M0), ER/NM positive and HER-2/kelsie positive. Staging PET/CT was requested but delayed because of insurance issues. 2. She underwent ultrasound-guided needle biopsy of left breast mass on 05/08/2019, and she underwent ultrasound-guided needle biopsy of left axillary lymph node on 05/22/2019. Her other medical illnesses include: 3. Hypertension. 4. Type II diabetes. 5. Peripheral neuropathy. 6. GERD. 7. Hypothyroidism. 8. History of emphysematous pyelonephritis. She began cycle 1 of neoadjuvant TCH-P on 06/11/2019. Her treatment was complicated by headache and dizziness, nausea/vomiting, diarrhea, and stomatitis. She sustained a fracture to the right proximal humerus when she passed out at home on day 3. She required hospitalization for IV hydration at day 6. Her symptoms subsequently improved, but she then sustanined a fracture to the proximal left humerus when she stepped in a hole and fell. Both fractures have been managed conservatively. She was able to continue with cycle 2 of her chemotherapy on 07/02/2019, with cycle 3 on 07/23/2019, with cycle 4 on 08/13/2019, with cycle 5 on 09/03/2019, and with cycle 6 on 09/24/2019. During that time, she did receive frequent IV hydration, and she was able to tolerate the chemotherapy with acceptable toxicity. As of 10/19/2019 she continued systemic adjuvant therapy with cycle 1 of Herceptin/Perjeta. On 11/08/2019 she underwent left modified radical mastectomy and right simple mastectomy. Pathology on the left breast showed r a sclerotic mass measuring 1.4 x 2.0 x 0.7 cm, but there was no residual carcinoma in the breast and no involvement in 12 axillary lymph nodes, consistent with complete response to neoadjuvant therapy. The right breast pathology was benign. She then continued treatment with Herceptin/Perjeta at 3-week intervals. She received cycle 6 on 02/07/2020. She had been tolerating it well. However as of her follow-up visit on 02/28/2020 she had multiple new complaints including fatigue and generalized pain. Her alkaline phosphatase had gradually increasing. There is no evidence of metastatic disease, though, on her brain MRI or bone scan, and she continued treatment with Herceptin/Perjeta at 3-week intervals. As of 04/10/2020 she completed her 8th cycle. She has since then been feeling better generally, though she has had ongoing problems with right shoulder and arm pain. Her pain management has been problematic due to poor tolerance for opiate pain medication. Plan: She will continue with cycle 9 of Herceptin/Perjeta. She will be scheduled for a followup visit in 3 weeks. In the meantime, she I will have her try extended release oxycodone for the pain, initially at 15 mg every 12 hours. Signed By: Preston Cuellar M.D. <<Signature on File>>
== END 2020-05-05 23:59 | disposition home or self-care (01) ==
LOC: ONCMED 05:38
PROVIDERS: Nurse Practitioner; PCP Family Medicine; Visit Provider Internal Medicine Medical Oncology
DX: Z51.11 Encounter for antineoplastic chemotherapy (principal); C50.812 Malignant neoplasm of overlapping sites of left female breast; Z17.0 Estrogen receptor positive status [ER+]; D70.1 Agranulocytosis secondary to cancer chemotherapy; T45.1X5A Adverse effect of antineoplastic and immunosuppressive drugs, initial encounter; N12 Tubulo-interstitial nephritis, not specified as acute or chronic; K21.9 Gastro-esophageal reflux disease without esophagitis; I10 Essential (primary) hypertension; E03.9 Hypothyroidism, unspecified; E11.42 Type 2 diabetes mellitus with diabetic polyneuropathy
CPT/HCPCS: 80053; 83036; 84443; 85025; 96367; 96413; 96417; 99214; J1200; J3490; J7050; J9306; J9355

== ENCOUNTER 2020-05-01 08:13 | Outpatient (CLI) | payer BC, SELFPAY ==
--- NOTE | 2020-05-01 08:45 | US_ITS ---
WS: [id number] Bilateral renal ultrasound, 05/01/2020 Clinical Data: BILATERAL RENAL CYST Comparison: Renal ultrasound, 08/26/2016. Findings: The right kidney measures 12.2 cm x 6.3 cm x 5.3 cm and the left kidney is 11.7 cm x 6.5 cm x 7.0 cm. There are 3 cysts on the left kidney and none on the right kidney. No renal masses or calculi are se en. The abdominal aorta and inferior vena cava show no vascular abnormalities. The bladder was scanned and was not remarkable. US/US renal BI* [id number] Impression: 1. 3 small left renal cysts. 2. Negative bilateral renal ultrasound unchanged.
== END 2020-05-01 08:14 | disposition home or self-care (01) ==
LOC: US 08:13
PROVIDERS: PCP Family Medicine; Visit Provider Urology
DX: Q61.02 Congenital multiple renal cysts (principal)
CPT/HCPCS: 76770; 81001

== ENCOUNTER 2020-05-22 05:36 | Outpatient (RCR) | payer BC, SELFPAY ==
--- NOTE | 2020-05-06 15:09 | USCV_ITS ---
Shila Sheppard Age: 55 Gender: F : 1965 Exam Date: 05/06/2020 15:15 Ordering Phys: Preston Cuellar MD Technologist: Nelly Chambers Exam Location: [facility] [place] Indication: BREAST CANCER TREATMENT-CHECK EF BP: / HR: 98 Rhythm: Sinus Technical Quality: Adequate MEASUREMENTS (Male / Female) Normal Values 2D ECHO LV Diastolic Diameter PLAX 4.3 cm 4.2 - 5.9 / 3.9 - 5.3 cm LV Systolic Diameter PLAX 2.6 cm IVS Diastolic Thickness 1.2 cm 0.6 - 1.0 / 0.6 - 0.9 cm IVS Systolic Thickness 1.9 cm LVPW Diastolic Thickness 0.8 cm 0.6 - 1.0 / 0.6 - 0.9 cm LVPW Systolic Thickness 1.4 cm LV Ejection Fraction 2D Teich 71.2 % M-MODE LV Diastolic Diameter MM 5.4 cm 4.2 - 5.9 / 3.9 - 5.3 cm LV Systolic Diameter MM 3.1 cm LV Ejection Fraction MM Teich 73.8 % IVS Diastolic Thickness MM 0.6 cm 0.6 - 1.0 / 0.6 - 0.9 cm IVS Systolic Thickness MM 1.1 cm LVPW Diastolic Thickness MM 1.1 cm 0.6 - 1.0 / 0.6 - 0.9 cm LVPW Systolic Thickness MM 0.9 cm FINDINGS Left Ventricle Normal left ventricular cavity size. Normal left ventricular systolic function. No regional wall motion abnormalities. Left ventricular ejection fraction is estimated at 65 %. Right Ventricle Right Atrium Left Atrium Mitral Valve Aortic Valve Tricuspid Valve Pulmonic Valve Pericardium Aorta CONCLUSIONS Please note that this is a limited echo to assess LV function Normal left ventricular cavity size. Normal left ventricular systolic function. No regional wall motion abnormalities. Left ventricular ejection fraction is estimated at 65 %. When compared to the prior echocardiogram dated 01/21/2020 there is no significant change Victorino Xiong MD (Electronically Signed) Final Date: 06 May 2020 17:44 S
[2020-05-22 09:06] LABS: Basophils # 0.1 10^3/uL (0.0-0.1); Basophils % 0.7 %; Eosinophils # 0.1 10^3/uL (0.0-0.8); Eosinophils % 0.8 %; Hematocrit 44.2 % (37.0-47.0); Hemoglobin 14.6 g/dL (11.5-15.3); Lymphocytes # 2.7 10^3/uL (0.8-4.8); Lymphocytes % 22.8 %; Mean Corpuscular Hemoglobin 31.9 pg (28.0-34.0); Mean Corpuscular Volume 96.7 fL (81-99); Mean Platelet Volume 10.4 fL (7.4-10.4); Monocytes # 0.8 10^3/uL (0.2-0.9); Monocytes % 6.8 %; Neutrophils # 8.11 10^3/uL (1.8-7.7); Neutrophils % 68.5 %; Nucleated Red Blood Cells % 0 %; Platelet Count 290 10^3/cmm (130-400); Red Blood Count 4.57 10^6/uL (4.1-5.3); Red Cell Distribution Width 12.2 % (12.1-15.1); White Blood Count 11.8 10^3/uL (4.0-10.0)
[2020-05-22 09:22] LABS: Alanine Aminotransferase 38 U/L (0-33); Alkaline Phosphatase 130 IU/L (35-105); Anion Gap 13.1 (5-19); Aspartate Amino Transferase 30 U/L (0-32); Blood Urea Nitrogen 11 mg/dL (6-20); Calcium 8.5 mg/dL (8.5-10.5); Carbon Dioxide 27 mmol/L (22-29); Chloride 102 mmol/L (98-107); Globulin 2.9 g/dL (1.3-4.6); Glucose 139 mg/dL (65-115); Osmolality Calculated 288 mOsm/kg (285-295); Potassium 4.1 mmol/L (3.5-5.1); Sodium 138 mmol/L (136-145); Total Bilirubin 0.3 mg/dL (0.15-1.2); Total Protein 6.9 g/dL (6.6-8.7)
[2020-05-22] MEDS: acetaminophen 325 mg Tablet 650 MG PO (13:45)
[2020-05-22] MEDS: sodium chloride 0.9% 250 ML 75 ML IV (13:45)
--- NOTE | 2020-06-02 20:03 | ONC FU_ITS ---
[facility] Patient Note Patient: Shila Sheppard Unit #: [id number]: 1965 Dictated By: Walter GreenDate of Visit: May 22, 2020 Onc MED Follow-Up/Prog Note Chief Complaint: Breast cancer. History of Present Illness: Ms Sheppard is a 3 year-old woman with grade 3 infiltrating ductal carcinoma of the left breast, ER/WV positive and HER-2/kelsie positive. By clinical and pathologic evaluation and with ER/WV and HER-2/kelsie positive disease, she is stage IB (T2, N1, M0). She had presented with a palpable mass in the left breast, first noticed a month to a month and a half ago. Bilateral diagnostic mammogram with limited ultrasound of the left breast on 04/17/2019 was BI-RADS category 5, highly suspicious of malignancy. Findings included an irregular marginated spiculated soft tissue mass in the posterior inferior left breast at the 6 o'clock position measuring 3.3 x 2.8 cm. The underlying skin appeared retracted and thickened. There are no abnormalities noted in the right breast. Ultrasound-guided biopsy of the left breast mass on 05/08/2019 showed grade 2 infiltrating ductal carcinoma. The best prognostic profile showed ER positive at 87% and WV positive at 41%. The tumor was positive for overexpression of HER-2/kelsie, 3+ by IHC and amplification ratio by FISH of 3.8 with 13.3 HER-2 copies/cell. The Ki-67 was unfavorable at 24%. Dr Cuellar had seen her initially on 05/18/2019. She was recommended to undergo neoadjuvant chemotherapy with TCH-P. Her baseline echocardiogram showed normal LV function with estimated ejection fraction 65%. Staging PET/CT also was recommended but delayed because of insurance issues. Her other medical illnesses include hypertension, type II diabetes with peripheral neuropathy, GERD, and hypothyroidism. She has a history of emphysematous pyelonephritis. Her surgical history includes vaginal hysterectomy with unilateral oophorectomy in 2008. She does not recall ever having hot flashes or other indications of menopause. She has a history of smoking 1/2 pack of cigarettes daily for 30 years. INTERIM HISTORY: She began cycle 1 of TCH-P on 06/11/2019. She was given first cycle prophylaxis with Neulasta. Her treatment was complicated by severe headache and dizziness for several days and subsequently by nausea/vomiting and diarrhea. On day 3 she passed out at home, sustaining a fracture to the proximal right humerus. At day 6 she was admitted to the hospital because of intractable nausea and diarrhea. The maximum diarrhea was estimated at 6 stools per day. She also developed sore mouth, which lasted for about a week. She was very weak generally and had poor appetite for the first 2 weeks. During the last week of the cycle she had started to feel a lot better, but she then fell again when she stepped in a hole and she sustained a fracture to her proximal left humerus. Both fractures have been managed conservatively. She then proceeded with cycle 2 of her chemotherapy on 07/02/2019. With that cycle she was given scheduled hydration, but her dosages remained the same. She was able to tolerate it with acceptable toxicity. She then continued with cycle 3 on 07/23/2019, with cycle 4 on 08/13/2019, with cycle 5 on 09/03/2019, and with cycle 6 on 09/24/2019. During that time, she required frequent hydration, but she continued to tolerate the chemotherapy with acceptable toxicity. She returned on 10/19/2021 continue her systemic adjuvant therapy with Herceptin/Perjeta at the 3-week dosing schedule. On 11/08/2019 she underwent left modified radical mastectomy and right simple mastectomy. Pathology on the left breast showed sclerotic mass measuring 1.4 x 2.0 x 0.7 cm, but with no residual carcinoma and no involvement in 12 axillary lymph nodes, consistent with complete response to neoadjuvant therapy. The right breast showed benign pathology. She then continued treatment at 3-week intervals. As of 04/10/2020 she received her 8th cycle. Mrs Sheppard is here today for followup. She has no new concerns today. She denies any fever chills or signs of infection for at least the last 72 hours. She denies any diarrhea or constipation currently. She states she keeps it controlled after treatment. She is had no changes in her appetite. She has recently switched to Toujeo for her glucose and her sugars are improving. She continues to work full-time and tolerates this well although she tires easily she does recover well with rest. Her ECOG is 1. Her main complaint is that she is having significant pain in her right shoulder and arm, and surgery for that has been deferred until after she completes treatment. Her pain management has been problematic as she has had relatively poor tolerance for opiate medication. 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 She has previously had nausea and sedation with tramadol. She was not getting much benefit with hydrocodone/APAP. She has had some benefit with 10 mg immediate release oxycodone, though still with some side effect. Past Medical History: Emphysematous pyelonephritis Gastroesophageal reflux disease Hypertension Hypothyroidism Peripheral neuropathy Type II diabetes Left proximal humeral fracture in 2019 Right proximal humeral fracture in 2019 Past Surgical History: Cholecystectomy Excision of Holly's neuroma Subtotal thyroidectomy Right subcclavian [id number] Nice in 2019 Left breast lumpectomy for benign disease in 2014 Vaginal hysterectomy with unilateral right salpingo-oophorectomy in 2008 Left thyroid lobectomy for multinodular goiter in 2004 Allergies: NORBERTO Inhibitors, NSAIDs, and Ozempic. Medications: DULoxetine HCl 1 Capsule (of 60 mg) Capsule Delayed Release Particles Oral daily DULoxetine HCl 1 Capsule (of 30 mg) Capsule Delayed Release Particles Oral daily Levemir 42 Units (of 100 Units/mL) Subcutaneous b.i.d. Levo-T 1 Tablet (of .5 mcg) Oral daily Losartan Potassium 1 Tablet (of 25 mg) Oral daily Marinol 1 Capsule (of 2.5 mg) Oral b.i.d. PRN NovoLOG 15 Units (of 100 Units/mL) Subcutaneous t.i.d. oxyCODONE HCl 1 Tablet (of 10 mg) Oral four times a day PRN Polytrim 1 Drop(s) (of 20516-8.1 Units/mL - %) Solution Ophthalmic q 3 hours PRN Protonix 1 Tablet (of 20 mg) Tablet, enteric coated Oral daily traMADol HCl 1 - 2 Tablet (of 50 mg) Oral q 6 hours PRN Family History: Ms. Sheppard's mother is alive. Ms. Sheppard's father is alive. Both parents are still living, father at age 78 and mother at age 76. Father has coronary artery disease and he also has been treated for prostate cancer. Her mother has polycystic kidney disease with renal failure, and she is on dialysis. One brother is in good health. There are multiple family members with breast cancer on her father's side, including 2 paternal aunts and a first cousin. At least 2 of those family members have been tested for BRCA and reportedly were negative. 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 She is a daily smoker who has smoked 0.5 packs/day for 31 years. She drinks occasionally. She has indicated exposure to the following products: cigarettes. Ms. Sheppard reports the following support systems: lives with spouse, significant other, family, or friends, lives in own house, supportive family/friends willing to assist with needs, and adequate transportation available for expected visits. Her diet consists of regular meals. She indicates her activity level as: regular exercise. Review Of Symptoms: Constitutional Denies fevers, chills, night sweats, excessive fatigue. Allergic/Immunologic No reactions. Eyes Denies significant visual changes. No diplopia. No amaurosis. ENMT Denies changes in hearing, sore throat, mouth sores, difficulty or changes in swallowing ability, and/or sinus drainage. Endocrine She states her blood sugars are running better at home. Her glucose today was nonfasting. She was recently started on Toujeo. Hematologic/Lymphatic Denies easy bruising or bleeding. The patient denies any tender or palpable lymph nodes. Breasts No new concerns Respiratory Denies dyspnea on exertion, chest pain, cough or hemoptysis. Denies orthopnea. Cardiovascular Denies anginal chest pain, palpitations or orthopnea. Gastrointestinal Denies nausea, vomiting, GI bleeding, or constipation. Denies change in bowel habits and/or stool color, no heartburn or early satiety. Diarrhea resolved currently. Genitourinary (F) No hematuria, hesitancy, incontinence, vaginal bleeding, discharge or other problems with urination. Musculoskeletal Denies joint pain, swelling or redness. No decreased range of motion. Left wrist pain and right shoulder pain. She did have surgery recently for trigger finger . She is doing this with Dr. Payton. She states they will follow-up with the shoulder after she has completed her cancer treatment. Integumentary Denies chronic rashes, inflammation, ulcerations or skin changes. Neurologic Denies headache, blurred vision, and no areas of focal weakness or numbness. Normal gait. No sensory problems. Psychiatric Denies insomnia, depression, carole or mood swings. Vital Signs: Performed on May 22, 2020 13:08 Height - 71.50 in Weight - 231.4 lbs (LOW) BSA - 2.26 sq.m BMI - 31.82 (HIGH) Temperature - 97.9 F (LOW) Pulse - 108 /min (HIGH) Respiration - 20 /min BP - 146/89 mm(hg) (HIGH) O2 Sat - 91 % (LOW) Pain - 7,1 - No physically strenuous activity, but ambulatory and able to carry out light or sedentary work (e.g. office work, light house work). (ECOG) Physical Examination: Constitutional Alert, oriented, no acute distress. Skin pink, warm and dry. Head Normocephalic; atraumatic. Eyes Conjunctivae and sclerae are clear and without icterus. Pupils are reactive and equal. Neck No jugular venous distension. Hematologic/Lymphatic No petechiae or purpura. Respiratory Lungs are clear to auscultation without rhonchi or wheezing. Cardiovascular Regular rate and rhythm of heart without murmurs,clicks, gallops or rubs. Chest Right sided venous access device has healed well and is unremarkable. Back/Spine Non-tender to palpation. Extremities No visible deformities, no cyanosis, clubbing or edema. Musculoskeletal Slight swelling in right upper arm with limited ROM with both shoulders but without obvious weakness. Chest wall still somewhat red and swollen-follow?ing with [place]. Integumentary No rashes or lesions. Neurologic No sensory or motor deficits, normal cerebellar function, normal gait. Psychiatric Alert and oriented times three. Coherent speech. Verbalizes understanding of our discussions today. Laboratory:Test performed on May 22, 2020 08:12 Sodium 138 mmol/L Potassium 4.1 mmol/L Chloride 102 mmol/L CO2 27 mmol/L Anion Gap 13.1 BUN 11 mg/dL Creatinine 0.6 mg/dL Cr Clearance (Est) 166.8200 mL/min eGFR 103.0 mL/min Glucose 139 mg/dL Osmolality - Calculated 288 mOsm/kg Calcium 8.5 mg/dL Protein, Total 6.9 g/dL Albumin 4.0 g/dL Globulin 2.9 g/dL Bilirubin, Total 0.3 mg/dL ALT (SGPT) 38 U/L AST (SGOT) 30 U/L Alkaline Phosphatase 130 IU/L WBC 11.8 10 3/uL RBC 4.57 10 6/uL HGB 14.6 g/dL HCT 44.2 % MCV 96.7 fL MCH 31.9 pg MCHC 33.0 g/dL RDW 12.2 % Platelet Count 290 10 3/cmm MPV 10.4 fL Neutrophils 8.11 10 3/uL Lymphocytes 2.7 10 3/uL Monocytes 0.8 10 3/uL Eosinophils 0.1 10 3/uL Basophils 0.1 10 3/uL Neutrophil % 68.5 % Lymphocyte % 22.8 % Monocyte % 6.8 % Eosinophil % 0.8 % Basophils % 0.7 % NRBC % 0 % Impression: 1. Patient with grade 2 infiltrating ductal carcinoma of the left breast, Stage IB (T2, N1, M0), ER/WV positive and HER-2/kelsie positive. Staging PET/CT was requested but delayed because of insurance issues. 2. She underwent ultrasound-guided needle biopsy of left breast mass on 05/08/2019, and she underwent ultrasound-guided needle biopsy of left axillary lymph node on 05/22/2019. Her other medical illnesses include: 3. Hypertension. 4. Type II diabetes. 5. Peripheral neuropathy. 6. GERD. 7. Hypothyroidism. 8. History of emphysematous pyelonephritis. She began cycle 1 of neoadjuvant TCH-P on 06/11/2019. Her treatment was complicated by headache and dizziness, nausea/vomiting, diarrhea, and stomatitis. She sustained a fracture to the right proximal humerus when she passed out at home on day 3. She required hospitalization for IV hydration at day 6. Her symptoms subsequently improved, but she then sustanined a fracture to the proximal left humerus when she stepped in a hole and fell. Both fractures have been managed conservatively. She was able to continue with cycle 2 of her chemotherapy on 07/02/2019, with cycle 3 on 07/23/2019, with cycle 4 on 08/13/2019, with cycle 5 on 09/03/2019, and with cycle 6 on 09/24/2019. During that time, she did receive frequent IV hydration, and she was able to tolerate the chemotherapy with acceptable toxicity. As of 10/19/2019 she continued systemic adjuvant therapy with cycle 1 of Herceptin/Perjeta. On 11/08/2019 she underwent left modified radical mastectomy and right simple mastectomy. Pathology on the left breast showed r a sclerotic mass measuring 1.4 x 2.0 x 0.7 cm, but there was no residual carcinoma in the breast and no involvement in 12 axillary lymph nodes, consistent with complete response to neoadjuvant therapy. The right breast pathology was benign. She then continued treatment with Herceptin/Perjeta at 3-week intervals. She received cycle 6 on 02/07/2020. She had been tolerating it well. However as of her follow-up visit on 02/28/2020 she had multiple new complaints including fatigue and generalized pain. Her alkaline phosphatase had gradually increasing. There is no evidence of metastatic disease, though, on her brain MRI or bone scan, and she continued treatment with Herceptin/Perjeta at 3-week intervals. As of 04/10/2020 she completed her 8th cycle. She has since then been feeling better generally, though she has had ongoing problems with right shoulder and arm pain. Her pain management has been problematic due to poor tolerance for opiate pain medication. Plan: 1. Proceed with cycle 10 Herceptin Perjeta. 2. Continue same antiemetics/premeds as they are working well. 3. Labs from 05/22/2020 were reviewed in detail and discussed with Ms. Sheppard and a copy was given to her. WBC 11.8, hemoglobin 14.6, platelets 290,000 ANC is 8000 creatinine 0.6 LFTs are normal. Her hemoglobin A1c from May 01, 2020 was 10. Since then she started on Toujeo. 4. Limited views echocardiogram from 05/06/2020 reported no regional wall motion abnormalities; ventricular ejection fraction is estimated at 65% on when compared to the prior echo dated 01/21/2020 there was no significant change. 5. We will plan to have her return in 3 weeks with CBC CMP and follow-up for Herceptin Perjeta. It is estimated that will be her last treatment. 6. Mrs. Sheppard was instructed to contact us in interim should questions or problems arise. Signed By: Luisa Green, AOP Preston Cuellar MD <<Signature on File>>
== END 2020-06-04 23:59 | disposition home or self-care (01) ==
LOC: ONCMED 05:36
PROVIDERS: PCP Family Medicine; Visit Provider Nurse Practitioner
DX: Z51.12 Encounter for antineoplastic immunotherapy (principal); C50.812 Malignant neoplasm of overlapping sites of left female breast; Z17.0 Estrogen receptor positive status [ER+]; M25.511 Pain in right shoulder; I10 Essential (primary) hypertension; E11.42 Type 2 diabetes mellitus with diabetic polyneuropathy; K21.9 Gastro-esophageal reflux disease without esophagitis; E03.9 Hypothyroidism, unspecified; Z87.448 Personal history of other diseases of urinary system; Z79.899 Other long term (current) drug therapy; Z90.13 Acquired absence of bilateral breasts and nipples
CPT/HCPCS: 80053; 85025; 93308; 96367; 96413; 96417; 99214; J1200; J3490; J7050; J9306; J9355

== ENCOUNTER 2020-06-12 05:54 | Outpatient (RCR) | payer BC, SELFPAY ==
[2020-06-12 08:40] LABS: Basophils # 0.1 10^3/uL (0.0-0.1); Basophils % 0.6 %; Eosinophils # 0.2 10^3/uL (0.0-0.8); Eosinophils % 1.9 %; Hemoglobin 14.7 g/dL (11.5-15.3); Lymphocytes # 2.6 10^3/uL (0.8-4.8); Lymphocytes % 22.5 %; Mean Corpuscular HGB Conc 32.7 g/dL (30.0-36.0); Mean Platelet Volume 10.7 fL (7.4-10.4); Monocytes # 0.8 10^3/uL (0.2-0.9); Monocytes % 6.9 %; Neutrophils # 7.93 10^3/uL (1.8-7.7); Neutrophils % 67.7 %; Nucleated Red Blood Cells % 0 %; Platelet Count 280 10^3/cmm (130-400); Red Blood Count 4.59 10^6/uL (4.1-5.3); Red Cell Distribution Width 12.5 % (12.1-15.1); White Blood Count 11.7 10^3/uL (4.0-10.0)
[2020-06-12 08:41] LABS: Alanine Aminotransferase 34 U/L (0-33); Albumin Level 4.2 g/dL (3.5-5.2); Alkaline Phosphatase 148 IU/L (35-105); Anion Gap 13.4 (5-19); Aspartate Amino Transferase 29 U/L (0-32); Blood Urea Nitrogen 12 mg/dL (6-20); Calcium 8.8 mg/dL (8.5-10.5); Carbon Dioxide 25 mmol/L (22-29); Chloride 104 mmol/L (98-107); Globulin 2.6 g/dL (1.3-4.6); Glucose 217 mg/dL (65-115); Osmolality Calculated 292 mOsm/kg (285-295); Potassium 4.4 mmol/L (3.5-5.1); Sodium 138 mmol/L (136-145); Total Bilirubin 0.3 mg/dL (0.15-1.2); Total Protein 6.8 g/dL (6.6-8.7)
[2020-06-12] MEDS: sodium chloride 0.9% 250 ML 75 ML IV (11:00)
[2020-06-12] MEDS: acetaminophen 325 mg Tablet 650 MG PO (11:00)
--- NOTE | 2020-06-19 14:00 | ONC FU_ITS ---
[facility] Patient Note Patient: Shila Sheppard Unit #: [id number]: [id number] Dictated By: Walter GreenDate of Visit: Jun 12, 2020 Onc MED Follow-Up/Prog Note Chief Complaint: Breast cancer. History of Present Illness: Ms Sheppard is a 55 year-old woman with grade 3 infiltrating ductal carcinoma of the left breast, ER/TX positive and HER-2/kelsie positive. By clinical and pathologic evaluation and with ER/TX and HER-2/kelsie positive disease, she is stage IB (T2, N1, M0). She had presented with a palpable mass in the left breast, first noticed a month to a month and a half ago. Bilateral diagnostic mammogram with limited ultrasound of the left breast on 04/17/2019 was BI-RADS category 5, highly suspicious of malignancy. Findings included an irregular marginated spiculated soft tissue mass in the posterior inferior left breast at the 6 o'clock position measuring 3.3 x 2.8 cm. The underlying skin appeared retracted and thickened. There are no abnormalities noted in the right breast. Ultrasound-guided biopsy of the left breast mass on 05/08/2019 showed grade 2 infiltrating ductal carcinoma. The best prognostic profile showed ER positive at 87% and TX positive at 41%. The tumor was positive for overexpression of HER-2/kelsie, 3+ by IHC and amplification ratio by FISH of 3.8 with 13.3 HER-2 copies/cell. The Ki-67 was unfavorable at 24%. Dr Cuellar had seen her initially on 05/18/2019. She was recommended to undergo neoadjuvant chemotherapy with TCH-P. Her baseline echocardiogram showed normal LV function with estimated ejection fraction 65%. Staging PET/CT also was recommended but delayed because of insurance issues. Her other medical illnesses include hypertension, type II diabetes with peripheral neuropathy, GERD, and hypothyroidism. She has a history of emphysematous pyelonephritis. Her surgical history includes vaginal hysterectomy with unilateral oophorectomy in 2008. She does not recall ever having hot flashes or other indications of menopause. She has a history of smoking 1/2 pack of cigarettes daily for 30 years. INTERIM HISTORY: She began cycle 1 of TCH-P on 06/11/2019. She was given first cycle prophylaxis with Neulasta. Her treatment was complicated by severe headache and dizziness for several days and subsequently by nausea/vomiting and diarrhea. On day 3 she passed out at home, sustaining a fracture to the proximal right humerus. At day 6 she was admitted to the hospital because of intractable nausea and diarrhea. The maximum diarrhea was estimated at 6 stools per day. She also developed sore mouth, which lasted for about a week. She was very weak generally and had poor appetite for the first 2 weeks. During the last week of the cycle she had started to feel a lot better, but she then fell again when she stepped in a hole and she sustained a fracture to her proximal left humerus. Both fractures have been managed conservatively. She then proceeded with cycle 2 of her chemotherapy on 07/02/2019. With that cycle she was given scheduled hydration, but her dosages remained the same. She was able to tolerate it with acceptable toxicity. She then continued with cycle 3 on 07/23/2019, with cycle 4 on 08/13/2019, with cycle 5 on 09/03/2019, and with cycle 6 on 09/24/2019. During that time, she required frequent hydration, but she continued to tolerate the chemotherapy with acceptable toxicity. She returned on 10/19/2021 continue her systemic adjuvant therapy with Herceptin/Perjeta at the 3-week dosing schedule. On 11/08/2019 she underwent left modified radical mastectomy and right simple mastectomy. Pathology on the left breast showed sclerotic mass measuring 1.4 x 2.0 x 0.7 cm, but with no residual carcinoma and no involvement in 12 axillary lymph nodes, consistent with complete response to neoadjuvant therapy. The right breast showed benign pathology. She then continued treatment at 3-week intervals. As of 04/10/2020 she received her 8th cycle. Mrs Sheppard is here today for followup. She has no new concerns today. She denies any fever chills or signs of infection for at least the last 72 hours. She denies any diarrhea or constipation currently. She states she keeps it controlled after treatment. She is had no changes in her appetite. She has recently switched to Toujeo for her glucose and her sugars are improving. She continues to work full-time and tolerates this well although she tires easily she does recover well with rest. 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 Her ECOG is 1. She has no new concerns today. Past Medical History: Emphysematous pyelonephritis Gastroesophageal reflux disease Hypertension Hypothyroidism Peripheral neuropathy Type II diabetes Left proximal humeral fracture in 2019 Right proximal humeral fracture in 2019 Past Surgical History: Cholecystectomy Excision of Holly's neuroma Subtotal thyroidectomy Right subcclavian [id number]-Dr Nice in 2018 Left breast lumpectomy for benign disease in 2014 Vaginal hysterectomy with unilateral right salpingo-oophorectomy in 2008 Left thyroid lobectomy for multinodular goiter in 2004 Allergies: NORBERTO Inhibitors, NSAIDs, and Ozempic. Medications: DULoxetine HCl 1 Capsule (of 60 mg) Capsule Delayed Release Particles Oral daily DULoxetine HCl 1 Capsule (of 30 mg) Capsule Delayed Release Particles Oral daily Levemir 42 Units (of 100 Units/mL) Subcutaneous b.i.d. Levo-T 1 Tablet (of .5 mcg) Oral daily Losartan Potassium 1 Tablet (of 25 mg) Oral daily Marinol 1 Capsule (of 2.5 mg) Oral b.i.d. PRN NovoLOG 15 Units (of 100 Units/mL) Subcutaneous t.i.d. oxyCODONE HCl 1 Tablet (of 10 mg) Oral four times a day PRN Polytrim 1 Drop(s) (of 10615-3.1 Units/mL - %) Solution Ophthalmic q 3 hours PRN Protonix 1 Tablet (of 20 mg) Tablet, enteric coated Oral daily traMADol HCl 1 - 2 Tablet (of 50 mg) Oral q 6 hours PRN Family History: Ms. Sheppard's mother is alive. Ms. Sheppard's father is alive. Both parents are still living, father at age 78 and mother at age 76. Father has coronary artery disease and he also has been treated for prostate cancer. Her mother has polycystic kidney disease with renal failure, and she is on dialysis. One brother is in good health. There are multiple family members with breast cancer on her father's side, including 2 paternal aunts and a first cousin. At least 2 of those family members have been tested for BRCA and reportedly were negative. 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 She is a daily smoker who has smoked 0.5 packs/day for 31 years. She drinks occasionally. She has indicated exposure to the following products: cigarettes. Ms. Sheppard reports the following support systems: lives with spouse, significant other, family, or friends, lives in own house, supportive family/friends willing to assist with needs, and adequate transportation available for expected visits. Her diet consists of regular meals. She indicates her activity level as: regular exercise. Review Of Symptoms: Constitutional Denies fevers, chills, night sweats, excessive fatigue. Allergic/Immunologic No reactions. Eyes Denies significant visual changes. No diplopia. No amaurosis. ENMT Denies changes in hearing, sore throat, mouth sores, difficulty or changes in swallowing ability, and/or sinus drainage. Endocrine She states her blood sugars are running better at home. Her glucose today was nonfasting. She was recently started on Toujeo. Hematologic/Lymphatic Denies easy bruising or bleeding. The patient denies any tender or palpable lymph nodes. Breasts No new concerns Respiratory Denies dyspnea on exertion, chest pain, cough or hemoptysis. Denies orthopnea. Cardiovascular Denies anginal chest pain, palpitations or orthopnea. Gastrointestinal Denies nausea, vomiting, GI bleeding, or constipation. Denies change in bowel habits and/or stool color, no heartburn or early satiety. Diarrhea resolved currently. Genitourinary (F) No hematuria, hesitancy, incontinence, vaginal bleeding, discharge or other problems with urination. Musculoskeletal Denies joint pain, swelling or redness. No decreased range of motion. Left wrist pain and right shoulder pain. She did have surgery recently for trigger finger . She is doing this with Dr. Payton. She states they will follow-up with the shoulder after she has completed her cancer treatment. Integumentary Denies chronic rashes, inflammation, ulcerations or skin changes. Neurologic Denies headache, blurred vision, and no areas of focal weakness or numbness. Normal gait. No sensory problems. Psychiatric Denies insomnia, depression, carole or mood swings. Vital Signs: Performed on Jun 12, 2020 10:25 Height - 71.50 in Weight - 234.4 lbs (HIGH) BSA - 2.27 sq.m BMI - 32.24 (HIGH) Temperature - 97.6 F (LOW) Pulse - 106 /min (HIGH) Respiration - 24 /min BP - 136/83 mm(hg) O2 Sat - 94 % (LOW) Pain - 6,1 - No physically strenuous activity, but ambulatory and able to carry out light or sedentary work (e.g. office work, light house work). (ECOG) Physical Examination: Constitutional Alert, oriented, no acute distress. Skin pink, warm and dry. Head Normocephalic; atraumatic. Eyes Conjunctivae and sclerae are clear and without icterus. Pupils are reactive and equal. Neck No jugular venous distension. Hematologic/Lymphatic No petechiae or purpura. Respiratory Lungs are clear to auscultation without rhonchi or wheezing. Cardiovascular Regular rate and rhythm of heart without murmurs,clicks, gallops or rubs. Chest Right sided venous access device has healed well and is unremarkable. Back/Spine Non-tender to palpation. Extremities No visible deformities, no cyanosis, clubbing or edema. Musculoskeletal Slight swelling in right upper arm with limited ROM with both shoulders but without obvious weakness. Chest wall still somewhat red and swollen-follow?ing with [place]. Integumentary No rashes or lesions. Neurologic No sensory or motor deficits, normal cerebellar function, normal gait. Psychiatric Alert and oriented times three. Coherent speech. Verbalizes understanding of our discussions today. Laboratory:Test performed on Jun 12, 2020 08:10 Sodium 138 mmol/L Potassium 4.4 mmol/L Chloride 104 mmol/L CO2 25 mmol/L Anion Gap 13.4 BUN 12 mg/dL Creatinine 0.6 mg/dL Cr Clearance (Est) 166.8200 mL/min eGFR 103.0 mL/min Glucose 217 mg/dL Osmolality - Calculated 292 mOsm/kg Calcium 8.8 mg/dL Protein, Total 6.8 g/dL Albumin 4.2 g/dL Globulin 2.6 g/dL Bilirubin, Total 0.3 mg/dL ALT (SGPT) 34 U/L AST (SGOT) 29 U/L Alkaline Phosphatase 148 IU/L WBC 11.7 10 3/uL RBC 4.59 10 6/uL HGB 14.7 g/dL HCT 45.0 % MCV 98.0 fL MCH 32.0 pg MCHC 32.7 g/dL RDW 12.5 % Platelet Count 280 10 3/cmm MPV 10.7 fL Neutrophils 7.93 10 3/uL Lymphocytes 2.6 10 3/uL Monocytes 0.8 10 3/uL Eosinophils 0.2 10 3/uL Basophils 0.1 10 3/uL Neutrophil % 67.7 % Lymphocyte % 22.5 % Monocyte % 6.9 % Eosinophil % 1.9 % Basophils % 0.6 % NRBC % 0 % Impression: 1. Patient with grade 2 infiltrating ductal carcinoma of the left breast, Stage IB (T2, N1, M0), ER/TX positive and HER-2/kelsie positive. Staging PET/CT was requested but delayed because of insurance issues. 2. She underwent ultrasound-guided needle biopsy of left breast mass on 05/08/2019, and she underwent ultrasound-guided needle biopsy of left axillary lymph node on 05/22/2019. Her other medical illnesses include: 3. Hypertension. 4. Type II diabetes. 5. Peripheral neuropathy. 6. GERD. 7. Hypothyroidism. 8. History of emphysematous pyelonephritis. She began cycle 1 of neoadjuvant TCH-P on 06/11/2019. Her treatment was complicated by headache and dizziness, nausea/vomiting, diarrhea, and stomatitis. She sustained a fracture to the right proximal humerus when she passed out at home on day 3. She required hospitalization for IV hydration at day 6. Her symptoms subsequently improved, but she then sustanined a fracture to the proximal left humerus when she stepped in a hole and fell. Both fractures have been managed conservatively. She was able to continue with cycle 2 of her chemotherapy on 07/02/2019, with cycle 3 on 07/23/2019, with cycle 4 on 08/13/2019, with cycle 5 on 09/03/2019, and with cycle 6 on 09/24/2019. During that time, she did receive frequent IV hydration, and she was able to tolerate the chemotherapy with acceptable toxicity. As of 10/19/2019 she continued systemic adjuvant therapy with cycle 1 of Herceptin/Perjeta. On 11/08/2019 she underwent left modified radical mastectomy and right simple mastectomy. Pathology on the left breast showed r a sclerotic mass measuring 1.4 x 2.0 x 0.7 cm, but there was no residual carcinoma in the breast and no involvement in 12 axillary lymph nodes, consistent with complete response to neoadjuvant therapy. The right breast pathology was benign. She then continued treatment with Herceptin/Perjeta at 3-week intervals. She received cycle 6 on 02/07/2020. She had been tolerating it well. However as of her follow-up visit on 02/28/2020 she had multiple new complaints including fatigue and generalized pain. Her alkaline phosphatase had gradually increasing. There is no evidence of metastatic disease, though, on her brain MRI or bone scan, and she continued treatment with Herceptin/Perjeta at 3-week intervals. As of 04/10/2020 she completed her 8th cycle. She has since then been feeling better generally, though she has had ongoing problems with right shoulder and arm pain. Her pain management has been problematic due to poor tolerance for opiate pain medication. Plan: 1. Proceed with cycle 11 Herceptin/Perjeta. This will complete her planned regimen for Herceptin/Perjeta. 2. Continue same antiemetics/premeds as they are working well. 3. Labs from 06/12/2020 were reviewed in detail and discussed with Ms. Sheppard and a copy was given to her. WBC 11.7, hemoglobin 14.7, platelets 280,000 ANC is 7900 creatinine 0.6 LFTs are normal. Her hemoglobin A1c from May 01, 2020 was 10. Since then she started on Toujeo. 4. Limited views echocardiogram from 05/06/2020 reported no regional wall motion abnormalities; ventricular ejection fraction is estimated at 65% on when compared to the prior echo dated 01/21/2020 there was no significant change. 5. We will plan to have her return in 4 weeks with CBC CMP and follow-up of completion of Herceptin Perjeta. Will discuss antiestrogen therapy at that time. She has had hormone testing and those test indicate she is menopausal. We will check her records to see if she has had bone mineral density testing recently and if not will need to request that when we start antiestrogen therapy. 6. Mrs. Sheppard was instructed to contact us in interim should questions or problems arise. Signed By: Walter Green-EVELYN, AOZOHAIBP Preston Cuellar MD <<Signature on File>>
== END 2020-07-05 23:59 | disposition home or self-care (01) ==
LOC: ONCMED 05:54
PROVIDERS: PCP Family Medicine; Visit Provider Nurse Practitioner
DX: Z51.11 Encounter for antineoplastic chemotherapy (principal); C50.812 Malignant neoplasm of overlapping sites of left female breast; Z17.0 Estrogen receptor positive status [ER+]; D70.1 Agranulocytosis secondary to cancer chemotherapy; T45.1X5A Adverse effect of antineoplastic and immunosuppressive drugs, initial encounter; I10 Essential (primary) hypertension; E11.42 Type 2 diabetes mellitus with diabetic polyneuropathy; K21.9 Gastro-esophageal reflux disease without esophagitis; E03.9 Hypothyroidism, unspecified; N12 Tubulo-interstitial nephritis, not specified as acute or chronic; Z79.899 Other long term (current) drug therapy
CPT/HCPCS: 80053; 85025; 96367; 96413; 96417; 99214; J1200; J3490; J7050; J9306; J9355

== ENCOUNTER 2020-07-15 06:05 | Outpatient (CLI) | payer BC, SELFPAY ==
[2020-07-15 09:44] LABS: Basophils # 0.1 10^3/uL (0.0-0.1); Basophils % 0.7 %; Eosinophils # 0.2 10^3/uL (0.0-0.8); Hematocrit 43.1 % (37.0-47.0); Hemoglobin 14.3 g/dL (11.5-15.3); Lymphocytes # 2.9 10^3/uL (0.8-4.8); Lymphocytes % 30.9 %; Mean Corpuscular HGB Conc 33.2 g/dL (30.0-36.0); Mean Corpuscular Hemoglobin 31.8 pg (28.0-34.0); Mean Platelet Volume 10.6 fL (7.4-10.4); Monocytes # 0.7 10^3/uL (0.2-0.9); Monocytes % 7.5 %; Neutrophils % 58.5 %; Nucleated Red Blood Cells % 0 %; Platelet Count 232 10^3/cmm (130-400); Red Blood Count 4.49 10^6/uL (4.1-5.3); Red Cell Distribution Width 12.5 % (12.1-15.1); White Blood Count 9.4 10^3/uL (4.0-10.0)
[2020-07-15 10:18] LABS: Alanine Aminotransferase 29 U/L (0-33); Albumin Level 3.7 g/dL (3.5-5.2); Alkaline Phosphatase 163 IU/L (35-105); Anion Gap 12.1 (5-19); Aspartate Amino Transferase 22 U/L (0-32); Blood Urea Nitrogen 14 mg/dL (6-20); Calcium 8.9 mg/dL (8.5-10.5); Carbon Dioxide 27 mmol/L (22-29); Chloride 106 mmol/L (98-107); Globulin 2.8 g/dL (1.3-4.6); Glomerular Filtration Rate 86.2 mL/min (90-130); Glucose 235 mg/dL (65-115); Osmolality Calculated 300 mOsm/kg (285-295); Potassium 4.1 mmol/L (3.5-5.1); Sodium 141 mmol/L (136-145); Thyroid Stimulating Hormone 5.19 uIU/mL (0.27-4.20); Total Bilirubin 0.2 mg/dL (0.15-1.2); Total Protein 6.5 g/dL (6.6-8.7)
[2020-07-15 17:08] LABS: Estmated Average Glucose 183
--- NOTE | 2020-07-19 14:11 | ONC FU_ITS ---
[facility] Patient Note Patient: Shila Sheppard Unit #: [id number]: 1965 Dictated By: Walter GreenDate of Visit: Jul 15, 2020 Onc MED Follow-Up/Prog Note Chief Complaint: Breast cancer. History of Present Illness: Ms Sheppard is a 55 year-old woman with grade 3 infiltrating ductal carcinoma of the left breast, ER/MS positive and HER-2/kelsie positive. By clinical and pathologic evaluation and with ER/MS and HER-2/kelsie positive disease, she is stage IB (T2, N1, M0). She had presented with a palpable mass in the left breast, first noticed a month to a month and a half ago. Bilateral diagnostic mammogram with limited ultrasound of the left breast on 04/17/2019 was BI-RADS category 5, highly suspicious of malignancy. Findings included an irregular marginated spiculated soft tissue mass in the posterior inferior left breast at the 6 o'clock position measuring 3.3 x 2.8 cm. The underlying skin appeared retracted and thickened. There are no abnormalities noted in the right breast. Ultrasound-guided biopsy of the left breast mass on 05/08/2019 showed grade 2 infiltrating ductal carcinoma. The best prognostic profile showed ER positive at 87% and MS positive at 41%. The tumor was positive for overexpression of HER-2/kelsie, 3+ by IHC and amplification ratio by FISH of 3.8 with 13.3 HER-2 copies/cell. The Ki-67 was unfavorable at 24%. Dr Cuellar had seen her initially on 05/18/2019. She was recommended to undergo neoadjuvant chemotherapy with TCH-P. Her baseline echocardiogram showed normal LV function with estimated ejection fraction 65%. Staging PET/CT also was recommended but delayed because of insurance issues. Her other medical illnesses include hypertension, type II diabetes with peripheral neuropathy, GERD, and hypothyroidism. She has a history of emphysematous pyelonephritis. Her surgical history includes vaginal hysterectomy with unilateral oophorectomy in 2008. She does not recall ever having hot flashes or other indications of menopause. She has a history of smoking 1/2 pack of cigarettes daily for 30 years. INTERIM HISTORY: She began cycle 1 of TCH-P on 06/11/2019. She was given first cycle prophylaxis with Neulasta. Her treatment was complicated by severe headache and dizziness for several days and subsequently by nausea/vomiting and diarrhea. On day 3 she passed out at home, sustaining a fracture to the proximal right humerus. At day 6 she was admitted to the hospital because of intractable nausea and diarrhea. The maximum diarrhea was estimated at 6 stools per day. She also developed sore mouth, which lasted for about a week. She was very weak generally and had poor appetite for the first 2 weeks. During the last week of the cycle she had started to feel a lot better, but she then fell again when she stepped in a hole and she sustained a fracture to her proximal left humerus. Both fractures have been managed conservatively. She then proceeded with cycle 2 of her chemotherapy on 07/02/2019. With that cycle she was given scheduled hydration, but her dosages remained the same. She was able to tolerate it with acceptable toxicity. She then continued with cycle 3 on 07/23/2019, with cycle 4 on 08/13/2019, with cycle 5 on 09/03/2019, and with cycle 6 on 09/24/2019. During that time, she required frequent hydration, but she continued to tolerate the chemotherapy with acceptable toxicity. She returned on 10/19/2021 continue her systemic adjuvant therapy with Herceptin/Perjeta at the 3-week dosing schedule. On 11/08/2019 she underwent left modified radical mastectomy and right simple mastectomy. Pathology on the left breast showed sclerotic mass measuring 1.4 x 2.0 x 0.7 cm, but with no residual carcinoma and no involvement in 12 axillary lymph nodes, consistent with complete response to neoadjuvant therapy. The right breast showed benign pathology. She then continued treatment at 3-week intervals. As of 06/12/2020 she received her 11th cycle. This also completed her 1 year therapy of Herceptin. Ms Sheppard is here today for followup. She has no new concerns today. She denies any fever chills or signs of infection for at least the last 72 hours. She did test positive for COVID-19 on 06-23-2020. She did not require hospitalization. She had mild to moderate symptoms stating that she was short of breath for 1 to 2 days with significant body aches. She states her main complaint there was a massive headache that bothered her even up to last Tuesday. She states but since then she has had no further headache. Her breathing has improved although still somewhat diminished from her baseline. She denies any orthopnea. She is had no wheezing. She denies any cough. She states that her random glucose this morning was 94. She states her appetite is good. She denies any constipation. She has some diarrhea around treatment but states that has subsided pretty well since she has stopped treatment. She states she thinks she is recovering well. She states she is planning on relocating due to work and will be in the [facility] but states she does not want to leave our practice and will be coming here for follow-up. Her ECOG is 0. Past Medical History: Emphysematous pyelonephritis Gastroesophageal reflux disease Hypertension Hypothyroidism Peripheral neuropathy Type II diabetes COVID 19 POSITIVE in 2019 Left proximal humeral fracture in 2018 Right proximal humeral fracture in 2019 Past Surgical History: Cholecystectomy Excision of Holly's neuroma Subtotal thyroidectomy Right subcclavian [id number] Nice in 2018 Left breast lumpectomy for benign disease in 2014 Vaginal hysterectomy with unilateral right salpingo-oophorectomy in 2008 Left thyroid lobectomy for multinodular goiter in 2004 Allergies: NORBERTO Inhibitors, NSAIDs, and Ozempic. Medications: DULoxetine HCl 1 Capsule (of 60 mg) Capsule Delayed Release Particles Oral daily DULoxetine HCl 1 Capsule (of 30 mg) Capsule Delayed Release Particles Oral daily Levemir 42 Units (of 100 Units/mL) Subcutaneous b.i.d. Levo-T 1 Tablet (of .5 mcg) Oral daily Losartan Potassium 1 Tablet (of 25 mg) Oral daily Marinol 1 Capsule (of 2.5 mg) Oral b.i.d. PRN NovoLOG 15 Units (of 100 Units/mL) Subcutaneous t.i.d. oxyCODONE HCl 1 Tablet (of 10 mg) Oral four times a day PRN Polytrim 1 Drop(s) (of 17221-2.1 Units/mL - %) Solution Ophthalmic q 3 hours PRN Protonix 1 Tablet (of 20 mg) Tablet, enteric coated Oral daily traMADol HCl 1 - 2 Tablet (of 50 mg) Oral q 6 hours PRN Family History: Ms. Sheppard's mother is alive. Ms. Sheppard's father is alive. Both parents are still living, father at age 78 and mother at age 76. Father has coronary artery disease and he also has been treated for prostate cancer. Her mother has polycystic kidney disease with renal failure, and she is on dialysis. One brother is in good health. There are multiple family members with breast cancer on her father's side, including 2 paternal aunts and a first cousin. At least 2 of those family members have been tested for BRCA and reportedly were negative. 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 She is a daily smoker who has smoked 0.5 packs/day for 31 years. She drinks occasionally. She has indicated exposure to the following products: cigarettes. Ms. Sheppard reports the following support systems: lives with spouse, significant other, family, or friends, lives in own house, supportive family/friends willing to assist with needs, and adequate transportation available for expected visits. Her diet consists of regular meals. She indicates her activity level as: regular exercise. Review Of Symptoms: Constitutional Denies fevers, chills, night sweats, excessive fatigue. Allergic/Immunologic No reactions. Eyes Denies significant visual changes. No diplopia. No amaurosis. ENMT Denies changes in hearing, sore throat, mouth sores, difficulty or changes in swallowing ability, and/or sinus drainage. Endocrine She states her blood sugars are running better at home. Her glucose today was nonfasting. She was recently started on Toujeo. Hematologic/Lymphatic Denies easy bruising or bleeding. The patient denies any tender or palpable lymph nodes. Breasts No new concerns Respiratory Denies dyspnea on exertion, chest pain, cough or hemoptysis. Denies orthopnea. Cardiovascular Denies anginal chest pain, palpitations or orthopnea. Gastrointestinal Denies nausea, vomiting, GI bleeding, or constipation. Denies change in bowel habits and/or stool color, no heartburn or early satiety. Genitourinary (F) No hematuria, hesitancy, incontinence, vaginal bleeding, discharge or other problems with urination. Musculoskeletal Denies joint pain, swelling or redness. No decreased range of motion. Chronic right shoulder pain. Controlled on current pain meds. + Integumentary Denies chronic rashes, inflammation, ulcerations or skin changes. Neurologic Denies headache, blurred vision, and no areas of focal weakness or numbness. Normal gait. No sensory problems. Psychiatric Denies insomnia, depression, carole or mood swings. Vital Signs: Performed on Jul 15, 2020 11:10 Height - 71.50 in Weight - 231.8 lbs (LOW) BSA - 2.26 sq.m BMI - 31.88 (HIGH) Temperature - 97.0 F (LOW) Pulse - 103 /min (HIGH) Respiration - 24 /min BP - 150/97 mm(hg) (HIGH) O2 Sat - 95 % (LOW) Pain - 7,0 - Fully active, able to carry on all predisease activities without restrictions. (ECOG) Physical Examination: Constitutional Alert, oriented, no acute distress. Skin pink, warm and dry. Head Normocephalic; atraumatic. Eyes Conjunctivae and sclerae are clear and without icterus. Pupils are reactive and equal. Neck No jugular venous distension. Hematologic/Lymphatic No petechiae or purpura. Respiratory Lungs are clear to auscultation without rhonchi or wheezing. Cardiovascular Regular rate and rhythm of heart without murmurs,clicks, gallops or rubs. Chest Right sided venous access device has healed well and is unremarkable. Back/Spine Non-tender to palpation. Extremities No visible deformities, no cyanosis, clubbing or edema. Musculoskeletal Slight swelling in right upper arm with limited ROM with both shoulders. Integumentary No rashes or lesions. Neurologic No sensory or motor deficits, normal cerebellar function, normal gait. Psychiatric Alert and oriented times three. Coherent speech. Verbalizes understanding of our discussions today. Laboratory:Test performed on Jul 15, 2020 09:35 Sodium 141 mmol/L TSH 5.19 uIU/mL Potassium 4.1 mmol/L Chloride 106 mmol/L Est Avg Glucose (eAG) 183 mg/dL CO2 27 mmol/L Anion Gap 12.1 BUN 14 mg/dL Creatinine 0.7 mg/dL Cr Clearance (Est) 142.9900 mL/min eGFR 86.2 mL/min Glucose 235 mg/dL Osmolality - Calculated 300 mOsm/kg Calcium 8.9 mg/dL Protein, Total 6.5 g/dL Albumin 3.7 g/dL Globulin 2.8 g/dL Bilirubin, Total 0.2 mg/dL ALT (SGPT) 29 U/L AST (SGOT) 22 U/L Alkaline Phosphatase 163 IU/L Hemoglobin A1C % 8.0 % WBC 9.4 10 3/uL RBC 4.49 10 6/uL HGB 14.3 g/dL HCT 43.1 % MCV 96.0 fL MCH 31.8 pg MCHC 33.2 g/dL RDW 12.5 % Platelet Count 232 10 3/cmm MPV 10.6 fL Neutrophils 5.50 10 3/uL Lymphocytes 2.9 10 3/uL Monocytes 0.7 10 3/uL Eosinophils 0.2 10 3/uL Basophils 0.1 10 3/uL Neutrophil % 58.5 % Lymphocyte % 30.9 % Monocyte % 7.5 % Eosinophil % 2.0 % Basophils % 0.7 % NRBC % 0 % Test performed on Feb 07, 2020 08:10 Estradiol 10.9 pg/mL FSH 27.2 mIU/mL Magnesium 1.8 mg/dL Impression: 1. Patient with grade 2 infiltrating ductal carcinoma of the left breast, Stage IB (T2, N1, M0), ER/MS positive and HER-2/kelsie positive. Staging PET/CT was requested but delayed because of insurance issues. 2. She underwent ultrasound-guided needle biopsy of left breast mass on 05/08/2019, and she underwent ultrasound-guided needle biopsy of left axillary lymph node on 05/22/2019. Her other medical illnesses include: 3. Hypertension. 4. Type II diabetes. 5. Peripheral neuropathy. 6. GERD. 7. Hypothyroidism. 8. History of emphysematous pyelonephritis. She began cycle 1 of neoadjuvant TCH-P on 06/11/2019. Her treatment was complicated by headache and dizziness, nausea/vomiting, diarrhea, and stomatitis. She sustained a fracture to the right proximal humerus when she passed out at home on day 3. She required hospitalization for IV hydration at day 6. Her symptoms subsequently improved, but she then sustanined a fracture to the proximal left humerus when she stepped in a hole and fell. Both fractures have been managed conservatively. She was able to continue with cycle 2 of her chemotherapy on 07/02/2019, with cycle 3 on 07/23/2019, with cycle 4 on 08/13/2019, with cycle 5 on 09/03/2019, and with cycle 6 on 09/24/2019. During that time, she did receive frequent IV hydration, and she was able to tolerate the chemotherapy with acceptable toxicity. As of 10/19/2019 she continued systemic adjuvant therapy with cycle 1 of Herceptin/Perjeta. On 11/08/2019 she underwent left modified radical mastectomy and right simple mastectomy. Pathology on the left breast showed r a sclerotic mass measuring 1.4 x 2.0 x 0.7 cm, but there was no residual carcinoma in the breast and no involvement in 12 axillary lymph nodes, consistent with complete response to neoadjuvant therapy. The right breast pathology was benign. She then continued treatment with Herceptin/Perjeta at 3-week intervals. She received cycle 6 on 02/07/2020. She had been tolerating it well. However as of her follow-up visit on 02/28/2020 she had multiple new complaints including fatigue and generalized pain. Her alkaline phosphatase had gradually increasing. There is no evidence of metastatic disease, though, on her brain MRI or bone scan, and she continued treatment with Herceptin/Perjeta at 3-week intervals. As of 06/12/2020 she completed her 8th cycle. She has since then been feeling better generally, though she has had ongoing problems with right shoulder and arm pain. Her pain management has been problematic due to poor tolerance for opiate pain medication. She continues to followup with orthopedics for her shoulder issues and endocrinology for her diabetes. Plan: 1. She completed her planned regimen for Herceptin/Perjeta on June 12, 2020. She has tolerated it well. 2. She is ER/MS positive. She did have a partial hysterectomy with 1 ovary left several years ago but is uncertain when her last menstrual period was. She did have estradiol and FSH levels drawn in February which indicate post menopause. However the concern is that we are uncertain when she actually went into menopause as she had no symptoms and does not recall evidence of menopause. The current plan will be to give her 2 years of tamoxifen and then follow with aromatase inhibitor. However given that she was Covid positive and increased risk of blood clots with tamoxifen is elected to wait till she is at least 1 month post symptoms from Covid. She was informed that she would be at increased risk for blood clots due to the tamoxifen alone. Her last known Covid symptoms were 07/08/2020 and that was significant for her headache. 3. Labs from 07/15/2020 were reviewed in detail and discussed with Ms. Sheppard and a copy was given to her. WBC 9.4, hemoglobin 14.3, platelets 232,000 ANC is 5500. Creatinine 0.7 LFTs are normal alk phos is 163 (she has chronic shoulder abnormalities). TSH is 5.19 she is currently asymptomatic hemoglobin A1c was added to blood in lab and resupported 8.0. Her hemoglobin A1c from May 01, 2020 was 10. Since then she started on Toujeo. 4. Limited views echocardiogram from 05/06/2020 reported no regional wall motion abnormalities; ventricular ejection fraction is estimated at 65% on when compared to the prior echo dated 01/21/2020 there was no significant change. 5. We will plan to have her return in 4 weeks with CBC CMP and follow-up for starting the tamoxifen. 6. Mrs. Sheppard was instructed to contact us in interim should questions or problems arise. Signed By: Lionel GreenNDanielito. <<Signature on File>>
== END 2020-07-15 06:06 | disposition home or self-care (01) ==
LOC: ONCMED 06:06
PROVIDERS: PCP Family Medicine; Visit Provider Nurse Practitioner
DX: C50.812 Malignant neoplasm of overlapping sites of left female breast (principal); Z17.0 Estrogen receptor positive status [ER+]; D70.1 Agranulocytosis secondary to cancer chemotherapy; T45.1X5A Adverse effect of antineoplastic and immunosuppressive drugs, initial encounter; I10 Essential (primary) hypertension; E11.42 Type 2 diabetes mellitus with diabetic polyneuropathy; K21.9 Gastro-esophageal reflux disease without esophagitis; E03.9 Hypothyroidism, unspecified; Z92.21 Personal history of antineoplastic chemotherapy; Z79.899 Other long term (current) drug therapy
CPT/HCPCS: 36591; 80053; 83036; 84443; 85025; 99214

== ENCOUNTER 2020-08-25 13:06 | Outpatient (CLI) | payer BC, SELFPAY ==
[2020-08-25 13:26] LABS: Basophils # 0.1 10^3/uL (0.0-0.1); Basophils % 0.7 %; Eosinophils # 0.1 10^3/uL (0.0-0.8); Hematocrit 43.6 % (37.0-47.0); Hemoglobin 14.5 g/dL (11.5-15.3); Lymphocytes # 3.3 10^3/uL (0.8-4.8); Lymphocytes % 31.2 %; Mean Corpuscular HGB Conc 33.3 g/dL (30.0-36.0); Mean Corpuscular Volume 96.2 fL (81-99); Mean Platelet Volume 10.5 fL (7.4-10.4); Monocytes # 0.8 10^3/uL (0.2-0.9); Monocytes % 7.2 %; Neutrophils # 6.34 10^3/uL (1.8-7.7); Neutrophils % 59.5 %; Nucleated Red Blood Cells % 0 %; Platelet Count 310 10^3/cmm (130-400); Red Blood Count 4.53 10^6/uL (4.1-5.3); Red Cell Distribution Width 12.3 % (12.1-15.1); White Blood Count 10.7 10^3/uL (4.0-10.0)
[2020-08-25 14:00] LABS: Alanine Aminotransferase 32 U/L (0-33); Albumin Level 3.7 g/dL (3.5-5.2); Alkaline Phosphatase 174 IU/L (35-105); Anion Gap 11.3 (5-19); Aspartate Amino Transferase 27 U/L (0-32); Blood Urea Nitrogen 12 mg/dL (6-20); Carbon Dioxide 28 mmol/L (22-29); Chloride 106 mmol/L (98-107); Glomerular Filtration Rate 86.2 mL/min (90-130); Glucose 160 mg/dL (65-115); Osmolality Calculated 295 mOsm/kg (285-295); Potassium 4.3 mmol/L (3.5-5.1); Sodium 141 mmol/L (136-145); Thyroid Stimulating Hormone 2.13 uIU/mL (0.27-4.20); Total Bilirubin 0.3 mg/dL (0.15-1.2); Total Protein 6.7 g/dL (6.6-8.7)
--- NOTE | 2020-08-28 11:14 | ONC FU_ITS ---
Dr. Cuellar Patient Follow-Up Note Patient: Shila Sheppard Unit #: [id number]: 1965 Dicatated By: Preston Cuellar M.D.Date of Visit:Aug 25, 2020 Onc Med Follow-up/Prog Note Chief Complaint: Breast cancer. History of Present Illness: This is a 55 year-old woman with grade 3 infiltrating ductal carcinoma of the left breast, ER/OH positive and HER-2/kelsie positive. By clinical and pathologic evaluation and with ER/OH and HER-2/kelsie positive disease, she is stage IB (T2, N1, M0). She had presented with a palpable mass in the left breast, first noticed a month to a month and a half ago. Bilateral diagnostic mammogram with limited ultrasound of the left breast on 04/17/2019 was BI-RADS category 5, highly suspicious of malignancy. Findings included an irregular marginated spiculated soft tissue mass in the posterior inferior left breast at the 6 o'clock position measuring 3.3 x 2.8 cm. The underlying skin appeared retracted and thickened. There are no abnormalities noted in the right breast. Ultrasound-guided biopsy of the left breast mass on 05/08/2019 showed grade 2 infiltrating ductal carcinoma. The best prognostic profile showed ER positive at 87% and OH positive at 41%. The tumor was positive for overexpression of HER-2/kelsie, 3+ by IHC and amplification ratio by FISH of 3.8 with 13.3 HER-2 copies/cell. The Ki-67 was unfavorable at 24%. I had seen her initially on 05/18/2019. She was recommended to undergo neoadjuvant chemotherapy with TCH-P. Her baseline echocardiogram showed normal LV function with estimated ejection fraction 65%. Staging PET/CT also was recommended but delayed because of insurance issues. Her other medical illnesses include hypertension, type II diabetes with peripheral neuropathy, GERD, and hypothyroidism. She has a history of emphysematous pyelonephritis. Her surgical history includes vaginal hysterectomy with unilateral oophorectomy in 2008. She does not recall ever having hot flashes or other indications of menopause. She has a history of smoking 1/2 pack of cigarettes daily for 30 years. INTERIM HISTORY: She began cycle 1 of TCH-P on 06/11/2019. She was given first cycle prophylaxis with Neulasta. Her treatment was complicated by severe headache and dizziness for several days and subsequently by nausea/vomiting and diarrhea. On day 3 she passed out at home, sustaining a fracture to the proximal right humerus. At day 6 she was admitted to the hospital because of intractable nausea and diarrhea. The maximum diarrhea was estimated at 6 stools per day. She also developed sore mouth, which lasted for about a week. She was very weak generally and had poor appetite for the first 2 weeks. During the last week of the cycle she had started to feel a lot better, but she then fell again when she stepped in a hole and she sustained a fracture to her proximal left humerus. Both fractures have been managed conservatively. She then proceeded with cycle 2 of her chemotherapy on 07/02/2019. With that cycle she was given scheduled hydration, but her dosages remained the same. She was able to tolerate it with acceptable toxicity. She then continued with cycle 3 on 07/23/2019, with cycle 4 on 08/13/2019, with cycle 5 on 09/03/2019, and with cycle 6 on 09/24/2019. During that time, she required frequent hydration, but she continued to tolerate the chemotherapy with acceptable toxicity. She returned on 10/19/2021 continue her systemic adjuvant therapy with Herceptin/Perjeta at the 3-week dosing schedule. On 11/08/2019 she underwent left modified radical mastectomy and right simple mastectomy. Pathology on the left breast showed sclerotic mass measuring 1.4 x 2.0 x 0.7 cm, but with no residual carcinoma and no involvement in 12 axillary lymph nodes, consistent with complete response to neoadjuvant therapy. The right breast showed benign pathology. She then continued treatment at 3-week intervals. As of 06/12/2020 she received her 11th and fnal cycle of Herceptin/Perjeta. She is seen for a follow-up visit. After completing chemotherapy she had contracted the COVID-19 virus infection, but she recovered uneventfully. Her energy is pretty good, though she does have some fatigue. She is still working. ECOG score is 1. She has good appetite. She has not had fever or night sweats. She sometimes feels hot at work. Her main complaint is that she has been having more bone pain. The most significant is in the right shoulder and arm and she is going to be seeing a shoulder specialist in October. She had carpal tunnel surgery on the left wrist back in March, and that pain has come back again. She has neuropathy pain in her hands and feet. She also reports having increased numbness in both arms. Medications: DULoxetine HCl 1 Capsule (of 60 mg) Capsule Delayed Release Particles Oral daily, DULoxetine HCl 1 Capsule (of 30 mg) Capsule Delayed Release Particles Oral daily, Levemir 42 Units (of 100 Units/mL) Subcutaneous b.i.d., Levo-T 1 Tablet (of .5 mcg) Oral daily, Losartan Potassium 1 Tablet (of 25 mg) Oral daily, Marinol 1 Capsule (of 2.5 mg) Oral b.i.d. PRN, NovoLOG 15 Units (of 100 Units/mL) Subcutaneous t.i.d., oxyCODONE HCl 1 Tablet (of 10 mg) Oral four times a day PRN, Polytrim 1 Drop(s) (of 20922-6.1 Units/mL - %) Solution Ophthalmic q 3 hours PRN, Protonix 1 Tablet (of 20 mg) Tablet, enteric coated Oral daily, traMADol HCl 1 - 2 Tablet (of 50 mg) Oral q 6 hours PRN Allergies: NORBERTO Inhibitors, NSAIDs, and Ozempic. Review of Systems: Constitutional - Her energy has been pretty good. She does have some fatigue, but she is working. Her appetite is good. She has not had fever or night sweats. She sometimes feels hot at work. ECOG score is 1, ENMT - She has sinus drainage, but no more than usual. No mouth sores. No sore throat or difficulty swallowing, Hematologic/Lymphatic - She has easy bruising, Respiratory - No shortness of breath. No cough. No pleuritic pain or hemoptysis, Cardiovascular - No angina pain. No palpitations, Gastrointestinal - She still has episodes of nausea with vomiting. For some reason these tend to occur on Thdays. Her acid reflux is adequately managed with Protonix. She does have some constipation. No blood in the stool or black stools, Genitourinary (F) - No dysuria or hematuria. No urinary frequency. No urgency or incontinence, Musculoskeletal - She has been having more bone pain in general, particularly in the right shoulder and arm, Integumentary - No skin rash, Neurologic - No headache. She sometimes has dizziness. She has numbness in both arms. She has neuropathy pain in her hands and feet, Psychiatric - No anxiety or depression. No insomnia. Vital Signs: Performed on Aug 25, 2020 15:06 Height - 71.50 in Weight - 233.2 lbs (HIGH) BSA - 2.26 sq.m BMI - 32.07 (HIGH) Temperature - 98.0 F (LOW) Pulse - 98 /min Respiration - 16 /min BP - 158/92 mm(hg) (HIGH) O2 Sat - 97 % Pain - 7 Physical Examination: Constitutional - She looks pretty good generally, Eyes - Sclerae nonicteric. Conjunctivae clear, ENMT - No lesions noted in the oral cavity, Hematologic/Lymphatic - No cervical or clavicular adenopathy, Respiratory - Lungs are clear with good air movement bilaterally, Cardiovascular - Heart rhythm is regular. There is a I/ systolic murmur. There is no gallop or rub noted, Breasts - There is residual swelling and induration in the chest wall bilaterally, but there are no chest wall lesions noted. There is no axillary adenopathy, Abdomen - Soft. Liver and spleen are not enlarged. There is no abdominal mass or ascites noted and there is no inguinal adenopathy, Extremities - No edema, Neurologic - No focal neurologic deficits noted. Lab/Imaging: Test performed on Aug 25, 2020 13:15 Sodium 141 mmol/L TSH 2.13 uIU/mL Potassium 4.3 mmol/L Chloride 106 mmol/L CO2 28 mmol/L Anion Gap 11.3 BUN 12 mg/dL Creatinine 0.7 mg/dL Cr Clearance (Est) 142.9900 mL/min eGFR 86.2 mL/min Glucose 160 mg/dL Osmolality - Calculated 295 mOsm/kg Calcium 9.0 mg/dL Protein, Total 6.7 g/dL Albumin 3.7 g/dL Globulin 3.0 g/dL Bilirubin, Total 0.3 mg/dL ALT (SGPT) 32 U/L AST (SGOT) 27 U/L Alkaline Phosphatase 174 IU/L WBC 10.7 10 3/uL RBC 4.53 10 6/uL HGB 14.5 g/dL HCT 43.6 % MCV 96.2 fL MCH 32.0 pg MCHC 33.3 g/dL RDW 12.3 % Platelet Count 310 10 3/cmm MPV 10.5 fL Neutrophils 6.34 10 3/uL Lymphocytes 3.3 10 3/uL Monocytes 0.8 10 3/uL Eosinophils 0.1 10 3/uL Basophils 0.1 10 3/uL Neutrophil % 59.5 % Lymphocyte % 31.2 % Monocyte % 7.2 % Eosinophil % 1.0 % Basophils % 0.7 % NRBC % 0 % Impression: 1. Patient with grade 2 infiltrating ductal carcinoma of the left breast, Stage IB (T2, N1, M0), ER/OH positive and HER-2/kelsie positive. Staging PET/CT was requested but delayed because of insurance issues. 2. She underwent ultrasound-guided needle biopsy of left breast mass on 05/08/2019, and she underwent ultrasound-guided needle biopsy of left axillary lymph node on 05/22/2019. Her other medical illnesses include: 3. Hypertension. 4. Type II diabetes. 5. Peripheral neuropathy. 6. GERD. 7. Hypothyroidism. 8. History of emphysematous pyelonephritis. She began cycle 1 of neoadjuvant TCH-P on 06/11/2019. Her treatment was complicated by headache and dizziness, nausea/vomiting, diarrhea, and stomatitis. She sustained a fracture to the right proximal humerus when she passed out at home on day 3. She required hospitalization for IV hydration at day 6. Her symptoms subsequently improved, but she then sustanined a fracture to the proximal left humerus when she stepped in a hole and fell. Both fractures have been managed conservatively. She was able to continue with cycle 2 of her chemotherapy on 07/02/2019, with cycle 3 on 07/23/2019, with cycle 4 on 08/13/2019, with cycle 5 on 09/03/2019, and with cycle 6 on 09/24/2019. During that time, she did receive frequent IV hydration, and she was able to tolerate the chemotherapy with acceptable toxicity. As of 10/19/2019 she continued systemic adjuvant therapy with cycle 1 of Herceptin/Perjeta. On 11/08/2019 she underwent left modified radical mastectomy and right simple mastectomy. Pathology on the left breast showed r a sclerotic mass measuring 1.4 x 2.0 x 0.7 cm, but there was no residual carcinoma in the breast and no involvement in 12 axillary lymph nodes, consistent with complete response to neoadjuvant therapy. The right breast pathology was benign. She then continued treatment with Herceptin/Perjeta at 3-week intervals. She received cycle 6 on 02/07/2020. She had been tolerating it well. However as of her follow-up visit on 02/28/2020 she had multiple new complaints including fatigue and generalized pain. Her alkaline phosphatase had gradually increasing. There is no evidence of metastatic disease, though, on her brain MRI or bone scan, and she continued treatment with Herceptin/Perjeta at 3-week intervals. As of 06/12/2020 she completed her 11th and final cycle of treatment. She had subsequently acquired COVID-19 virus infection, which she had an uneventful recovery. She otherwise continues to have some fatigue and she also continues to have significant neuropathy both in the upper and lower extremities. Recently she has had increased bone pain, which is concerning, as there has been some further increase in her alkaline phosphatase level. Plan: I will want to repeat a bone scan if there is further increase in the alkaline phosphatase level or worsening of her bone pain, and to that end I will continue to monitor her lab studies monthly. With ER/OH positive disease, she restart adjuvant hormonal therapy with a trial of tamoxifen 20 mg daily. She is aware that it will likely increase hot flashes and that it has a risk of thromboembolism. I will tentatively plan a follow-up visit in 3 months. Signed By: Preston Cuellar M.D. <<Signature on File>>
== END 2020-08-25 13:07 | disposition home or self-care (01) ==
LOC: ONCMED 13:08
PROVIDERS: PCP Family Medicine; Visit Provider Internal Medicine Medical Oncology
DX: C50.812 Malignant neoplasm of overlapping sites of left female breast (principal); Z17.0 Estrogen receptor positive status [ER+]; D70.1 Agranulocytosis secondary to cancer chemotherapy; T45.1X5A Adverse effect of antineoplastic and immunosuppressive drugs, initial encounter; I10 Essential (primary) hypertension; E11.42 Type 2 diabetes mellitus with diabetic polyneuropathy; K21.9 Gastro-esophageal reflux disease without esophagitis; E03.9 Hypothyroidism, unspecified; N12 Tubulo-interstitial nephritis, not specified as acute or chronic; Z79.899 Other long term (current) drug therapy
CPT/HCPCS: 36591; 80053; 84443; 85025; 99214

== ENCOUNTER 2020-09-22 08:59 | Outpatient (CLI) | payer BC, SELFPAY ==
[2020-09-22 09:51] LABS: Basophils # 0.1 10^3/uL (0.0-0.1); Basophils % 0.9 %; Eosinophils # 0.1 10^3/uL (0.0-0.8); Eosinophils % 1.5 %; Hematocrit 45.6 % (37.0-47.0); Hemoglobin 14.3 g/dL (11.5-15.3); Lymphocytes # 2.8 10^3/uL (0.8-4.8); Mean Corpuscular HGB Conc 31.4 g/dL (30.0-36.0); Mean Corpuscular Hemoglobin 31.5 pg (28.0-34.0); Mean Corpuscular Volume 100.4 fL (81-99); Mean Platelet Volume 10.7 fL (7.4-10.4); Monocytes # 0.5 10^3/uL (0.2-0.9); Monocytes % 5.2 %; Neutrophils # 5.89 10^3/uL (1.8-7.7); Neutrophils % 62.1 %; Nucleated Red Blood Cells % 0 %; Platelet Count 237 10^3/cmm (130-400); Red Blood Count 4.54 10^6/uL (4.1-5.3); Red Cell Distribution Width 12.2 % (12.1-15.1); White Blood Count 9.5 10^3/uL (4.0-10.0)
[2020-09-22 10:17] LABS: Alanine Aminotransferase 17 U/L (0-33); Albumin Level 3.7 g/dL (3.5-5.2); Alkaline Phosphatase 137 IU/L (35-105); Anion Gap 10.4 (5-19); Aspartate Amino Transferase 16 U/L (0-32); Blood Urea Nitrogen 15 mg/dL (6-20); Carbon Dioxide 28 mmol/L (22-29); Chloride 106 mmol/L (98-107); Globulin 2.9 g/dL (1.3-4.6); Glucose 151 mg/dL (65-115); Osmolality Calculated 294 mOsm/kg (285-295); Potassium 4.4 mmol/L (3.5-5.1); Sodium 140 mmol/L (136-145); Total Bilirubin 0.3 mg/dL (0.15-1.2); Total Protein 6.6 g/dL (6.6-8.7)
[2020-09-22 11:43] LABS: Creatinine Urine, Random 109 mg/dL (28-217)
[2020-09-22 11:47] LABS: Microalbum Creatinine Ratio Ur 9 mg/dL (0-20); Microalbumin Random Urine 1 ug/dL (0-20)
== END 2020-09-22 09:00 | disposition home or self-care (01) ==
PROVIDERS: PCP Family Medicine; Visit Provider Internal Medicine Medical Oncology
DX: C50.812 Malignant neoplasm of overlapping sites of left female breast (principal); Z17.0 Estrogen receptor positive status [ER+]; D70.1 Agranulocytosis secondary to cancer chemotherapy; T45.1X5A Adverse effect of antineoplastic and immunosuppressive drugs, initial encounter
CPT/HCPCS: 36591; 80053; 82044; 85025

== ENCOUNTER 2020-11-17 08:06 | Outpatient (CLI) | payer BC, SELFPAY ==
[2020-11-17 09:27] LABS: Basophils # 0.1 10^3/uL (0.0-0.1); Basophils % 0.8 %; Eosinophils # 0.2 10^3/uL (0.0-0.8); Eosinophils % 1.6 %; Hematocrit 37.1 % (37.0-47.0); Hemoglobin 12.4 g/dL (11.5-15.3); Lymphocytes % 32.6 %; Mean Corpuscular HGB Conc 33.4 g/dL (30.0-36.0); Mean Corpuscular Hemoglobin 32.2 pg (28.0-34.0); Mean Corpuscular Volume 96.4 fL (81-99); Mean Platelet Volume 11.2 fL (7.4-10.4); Monocytes # 0.6 10^3/uL (0.2-0.9); Monocytes % 6.7 %; Neutrophils # 5.36 10^3/uL (1.8-7.7); Nucleated Red Blood Cells % 0 %; Platelet Count 198 10^3/cmm (130-400); Red Blood Count 3.85 10^6/uL (4.1-5.3); White Blood Count 9.3 10^3/uL (4.0-10.0)
[2020-11-17 09:31] LABS: Calcium 8.1 mg/dL (8.5-10.5)
[2020-11-17 09:50] LABS: Alanine Aminotransferase 15 U/L (0-33); Albumin Level 3.3 g/dL (3.5-5.2); Alkaline Phosphatase 131 IU/L (35-105); Aspartate Amino Transferase 15 U/L (0-32); Blood Urea Nitrogen 15 mg/dL (6-20); Carbon Dioxide 26 mmol/L (22-29); Chloride 104 mmol/L (98-107); Globulin 2.5 g/dL (1.3-4.6); Glomerular Filtration Rate 127.2 mL/min (90-130); Glucose 166 mg/dL (65-115); Osmolality Calculated 287 mOsm/kg (285-295); Sodium 136 mmol/L (136-145); Total Bilirubin 0.3 mg/dL (0.15-1.2); Total Protein 5.8 g/dL (6.6-8.7)
[2020-11-17 12:44] LABS: Estmated Average Glucose 189; Hemoglobin A1C 8.2 % (4.0-6.0)
--- NOTE | 2020-11-18 20:33 | ONC FU_ITS ---
Dr. Cuellar Patient Follow-Up Note Patient: Shila Sheppard Unit #: [id number]: 1965 Dicatated By: Preston Cuellar M.D.Date of Visit:Nov 17, 2020 Onc Med Follow-up/Prog Note Chief Complaint: Breast cancer. History of Present Illness: This is a 55 year-old woman with grade 3 infiltrating ductal carcinoma of the left breast, ER/CA positive and HER-2/kelsie positive. By clinical and pathologic evaluation and with ER/CA and HER-2/kelsie positive disease, she is stage IB (T2, N1, M0). She had presented with a palpable mass in the left breast, first noticed a month to a month and a half ago. Bilateral diagnostic mammogram with limited ultrasound of the left breast on 04/17/2019 was BI-RADS category 5, highly suspicious of malignancy. Findings included an irregular marginated spiculated soft tissue mass in the posterior inferior left breast at the 6 o'clock position measuring 3.3 x 2.8 cm. The underlying skin appeared retracted and thickened. There are no abnormalities noted in the right breast. Ultrasound-guided biopsy of the left breast mass on 05/08/2019 showed grade 2 infiltrating ductal carcinoma. The best prognostic profile showed ER positive at 87% and CA positive at 41%. The tumor was positive for overexpression of HER-2/kelsie, 3+ by IHC and amplification ratio by FISH of 3.8 with 13.3 HER-2 copies/cell. The Ki-67 was unfavorable at 24%. I had seen her initially on 05/18/2019. She was recommended to undergo neoadjuvant chemotherapy with TCH-P. Her baseline echocardiogram showed normal LV function with estimated ejection fraction 65%. Staging PET/CT also was recommended but delayed because of insurance issues. She began cycle 1 of TCH-P on 06/11/2019. She was given first cycle prophylaxis with Neulasta. Her treatment was complicated by severe headache and dizziness for several days and subsequently by nausea/vomiting and diarrhea. On day 3 she passed out at home, sustaining a fracture to the proximal right humerus. At day 6 she was admitted to the hospital because of intractable nausea and diarrhea. The maximum diarrhea was estimated at 6 stools per day. She also developed sore mouth, which lasted for about a week. She was very weak generally and had poor appetite for the first 2 weeks. During the last week of the cycle she had started to feel a lot better, but she then fell again when she stepped in a hole and she sustained a fracture to her proximal left humerus. Both fractures have been managed conservatively. She began cycle 2 of her chemotherapy on 07/02/2019, tolerated with acceptable toxicity, and she continued treatment at 3-week intervals. She completed her 6th cycle on 09/24/2019. She then continued her systemic adjuvant therapy with Herceptin/Perjeta at the 3-week dosing schedule. On 11/08/2019 she underwent left modified radical mastectomy and right simple mastectomy. Pathology on the left breast showed sclerotic mass measuring 1.4 x 2.0 x 0.7 cm, but with no residual carcinoma and no involvement in 12 axillary lymph nodes, consistent with complete response to neoadjuvant therapy. The right breast showed benign pathology. She then continued treatment at 3-week intervals. As of 06/12/2020 she received her 11th and fnal cycle of Herceptin/Perjeta. In August 2020 she began adjuvant hormonal therapy with tamoxifen 20 mg daily. Her other medical illnesses include hypertension, type II diabetes with peripheral neuropathy, GERD, and hypothyroidism. She has a history of emphysematous pyelonephritis. Her surgical history includes vaginal hysterectomy with unilateral oophorectomy in 2008. She did not recall ever having hot flashes or other indications of menopause. She has a history of smoking 1/2 pack of cigarettes daily for 30 years. INTERIM HISTORY: She is seen for a follow-up visit. She has been feeling pretty good generally. She says she does get tired, but she is working and she has normal activity. Her ECOG score is 0. She has good appetite. She has not had fever or night sweats. She does get hot flashes, mainly when she is at work. She has no shortness of breath, cough, or chest pain. She still has occasional nausea. Her acid reflux is adequately managed with medication. Bowel and bladder function have been okay. She still has some pain in her right arm, and she will eventually be needing a total reverse shoulder arthroplasty. She has no other joint or bone pain. She does not complain of headache or dizziness. She does have significant neuropathy in her hands and feet. Medications: DULoxetine HCl 1 Capsule (of 60 mg) Capsule Delayed Release Particles Oral daily, DULoxetine HCl 1 Capsule (of 30 mg) Capsule Delayed Release Particles Oral daily, Levemir 42 Units (of 100 Units/mL) Subcutaneous b.i.d., Levo-T 1 Tablet (of .5 mcg) Oral daily, Losartan Potassium 1 Tablet (of 25 mg) Oral daily, Marinol 1 Capsule (of 2.5 mg) Oral b.i.d. PRN, NovoLOG 15 Units (of 100 Units/mL) Subcutaneous t.i.d., oxyCODONE HCl 1 Tablet (of 10 mg) Oral four times a day PRN, Polytrim 1 Drop(s) ([place] 82298-3.1 Units/mL - %) Solution Ophthalmic q 3 hours PRN, Protonix 1 Tablet (of 20 mg) Tablet, enteric coated Oral daily, traMADol HCl 1 - 2 Tablet (of 50 mg) Oral q 6 hours PRN Allergies: NORBERTO Inhibitors, NSAIDs, and Ozempic. Vital Signs: Performed on Nov 17, 2020 09:45 Height - 71.50 in Weight - 238 lbs (HIGH) BSA - 2.28 sq.m BMI - 32.73 (HIGH) Temperature - 97.6 F (LOW) Pulse - 96 /min Respiration - 18 /min BP - 182/95 mm(hg) (HIGH) O2 Sat - 99 % Pain - 0 Fatigue - 0 Physical Examination: Constitutional - She looks pretty good generally, Eyes - Sclerae nonicteric. Conjunctivae clear, ENMT - No lesions noted in the oral cavity, Hematologic/Lymphatic - No cervical or clavicular adenopathy, Respiratory - Lungs are clear with good air movement bilaterally, Cardiovascular - Heart rhythm is regular. There is no murmur, gallop, or rub noted, Breasts - There are no chest wall lesions noted. There is no axillary adenopathy, Abdomen - Soft. Liver and spleen are not enlarged. There is no abdominal mass or ascites noted and there is no inguinal adenopathy, Extremities - No edema, Neurologic - No focal neurologic deficits noted. Lab/Imaging: Test performed on Nov 17, 2020 08:45 Sodium 136 mmol/L Potassium 4.0 mmol/L Chloride 104 mmol/L Est Avg Glucose (eAG) 189 mg/dL CO2 26 mmol/L Anion Gap 10.0 BUN 15 mg/dL Creatinine 0.5 mg/dL Cr Clearance (Est) 200.1900 mL/min eGFR 127.2 mL/min Glucose 166 mg/dL Osmolality - Calculated 287 mOsm/kg Calcium 8.1 mg/dL Protein, Total 5.8 g/dL Albumin 3.3 g/dL Globulin 2.5 g/dL Bilirubin, Total 0.3 mg/dL ALT (SGPT) 15 U/L AST (SGOT) 15 U/L Alkaline Phosphatase 131 IU/L Hemoglobin A1C % 8.2 % WBC 9.3 10 3/uL RBC 3.85 10 6/uL HGB 12.4 g/dL HCT 37.1 % MCV 96.4 fL MCH 32.2 pg MCHC 33.4 g/dL RDW 13.0 % Platelet Count 198 10 3/cmm MPV 11.2 fL Neutrophils 5.36 10 3/uL Lymphocytes 3.0 10 3/uL Monocytes 0.6 10 3/uL Eosinophils 0.2 10 3/uL Basophils 0.1 10 3/uL Neutrophil % 58.0 % Lymphocyte % 32.6 % Monocyte % 6.7 % Eosinophil % 1.6 % Basophils % 0.8 % NRBC % 0 % Problem List: 1. Grade 2 infiltrating ductal carcinoma of the left breast, Stage IB (T2, N1, M0), ER/CA positive and HER-2/kelsie positive, initially diagnosed in May 2019. 2. In June 2019 she suffered traumatic fracture of the right proximal humerus and subsequently of the left proximal humerus. Both were managed conservatively. 3. Hypertension. 4. Type II diabetes. 5. Peripheral neuropathy. 6. GERD. 7. Hypothyroidism. 8. History of emphysematous pyelonephritis. Problems Addressed with this Encounter and Plan: 1. Patient with grade 2 infiltrating ductal carcinoma of the left breast, Stage IB (T2, N1, M0), ER/CA positive and HER-2/kelsie positive. She underwent ultrasound-guided needle biopsy of left breast mass on 05/08/2019, and she underwent ultrasound-guided needle biopsy of left axillary lymph node on 05/22/2019. She completed 6 cycles of neoadjuvant TCH-P from 06/11/2019 thru 09/24/2019. Her 1st cycle was complicated by headache and dizziness, nausea/vomiting, diarrhea, and stomatitis. She sustained a fracture to the right proximal humerus when she passed out at home on day 3. She required hospitalization for IV hydration at day 6. Her symptoms subsequently improved, but she then sustanined a fracture to the proximal left humerus when she stepped in a hole and fell. Both fractures were managed conservatively. She was then able to tolerate her further chemotherapy with acceptable toxicity, though she continued to require frequent IV hydration. She continued systemic adjuvant therapy with cycle 1 of Herceptin/Perjeta on 10/19/2019. On 11/08/2019 she underwent left modified radical mastectomy and right simple mastectomy. Pathology on the left breast showed r a sclerotic mass measuring 1.4 x 2.0 x 0.7 cm, but there was no residual carcinoma in the breast and no involvement in 12 axillary lymph nodes, consistent with complete response to neoadjuvant therapy. The right breast pathology was benign. She then continued treatment with Herceptin/Perjeta at 3-week intervals. As of 06/12/2020 she completed her 11th and final cycle of treatment. In August 2020 she began adjuvant hormonal therapy with tamoxifen 20 mg daily. During her further follow-up she was diagnosed with COVID-19 virus infection, but she had an uneventful recovery. She has otherwise been doing well clinically. She has had some ongoing problems with the right proximal humerus fracture, and it is anticipated that she eventually will be undergoing surgery. Thus far there has been no evidence of recurrence of the breast cancer. She continues adjuvant hormonal therapy with tamoxifen 20 mg daily. I will see her again in 6 months, or sooner as needed. 2. Hypertension. Her blood pressure recently has been elevated, and it is high today. Those results will be forwarded to Dr. Sheppard. Signed By: Preston Cuellar M.D. <<Signature on File>>
== END 2020-11-17 08:07 | disposition home or self-care (01) ==
LOC: ONCMED 08:08
PROVIDERS: PCP Family Medicine; Visit Provider Internal Medicine Medical Oncology
DX: C50.812 Malignant neoplasm of overlapping sites of left female breast (principal); Z17.0 Estrogen receptor positive status [ER+]; I10 Essential (primary) hypertension; Z86.16 Personal history of COVID-19; Z79.810 Long term (current) use of selective estrogen receptor modulators (SERMs)
CPT/HCPCS: 36591; 80053; 83036; 85025; 99214

== ENCOUNTER 2021-08-03 08:27 | Outpatient (CLI) | payer BC, SELFPAY ==
--- NOTE | 2021-08-07 16:52 | ONC FU_ITS ---
Dr. Cuellar Patient Follow-Up Note Patient: Shila Sheppard Unit #: [id number]: [id number] Dicatated By: Preston Cuellar M.D.Date of Visit:Aug 03, 2021 Onc Med Follow-up/Prog Note Chief Complaint: Breast cancer. 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 By clinical and pathologic evaluation and with ER/MN and HER-2/kelsie positive disease, she is stage IB (T2, N1, M0). She had presented with a palpable mass in the left breast, first noticed a month to a month and a half ago. Bilateral diagnostic mammogram with limited ultrasound of the left breast on 04/17/2019 was BI-RADS category 5, highly suspicious of malignancy. Findings included an irregular marginated spiculated soft tissue mass in the posterior inferior left breast at the 6 o'clock position measuring 3.3 x 2.8 cm. The underlying skin appeared retracted and thickened. There are no abnormalities noted in the right breast. Ultrasound-guided biopsy of the left breast mass on 05/08/2019 showed grade 2 infiltrating ductal carcinoma. The best prognostic profile showed ER positive at 87% and MN positive at 41%. The tumor was positive for overexpression of HER-2/kelsie, 3+ by IHC and amplification ratio by FISH of 3.8 with 13.3 HER-2 copies/cell. The Ki-67 was unfavorable at 24%. I had seen her initially on 05/18/2019. She was recommended to undergo neoadjuvant chemotherapy with TCH-P. Her baseline echocardiogram showed normal LV function with estimated ejection fraction 65%. Staging PET/CT also was recommended but delayed because of insurance issues. She began cycle 1 of TCH-P on 06/11/2019. She was given first cycle prophylaxis with Neulasta. Her treatment was complicated by severe headache and dizziness for several days and subsequently by nausea/vomiting and diarrhea. On day 3 she passed out at home, sustaining a fracture to the proximal right humerus. At day 6 she was admitted to the hospital because of intractable nausea and diarrhea. The maximum diarrhea was estimated at 6 stools per day. She also developed sore mouth, which lasted for about a week. She was very weak generally and had poor appetite for the first 2 weeks. During the last week of the cycle she had started to feel a lot better, but she then fell again when she stepped in a hole and she sustained a fracture to her proximal left humerus. Both fractures have been managed conservatively. She began cycle 2 of her chemotherapy on 07/02/2019, tolerated with acceptable toxicity, and she continued treatment at 3-week intervals. She completed her 6th cycle on 09/24/2019. She then continued her systemic adjuvant therapy with Herceptin/Perjeta at the 3-week dosing schedule. On 11/08/2019 she underwent left modified radical mastectomy and right simple mastectomy. Pathology on the left breast showed sclerotic mass measuring 1.4 x 2.0 x 0.7 cm, but with no residual carcinoma and no involvement in 12 axillary lymph nodes, consistent with complete response to neoadjuvant therapy. The right breast showed benign pathology. She then continued treatment at 3-week intervals. As of 06/12/2020 she received her 11th and fnal cycle of Herceptin/Perjeta. In August 2020 she began adjuvant hormonal therapy with tamoxifen 20 mg daily. Her other medical illnesses include hypertension, type II diabetes with peripheral neuropathy, GERD, and hypothyroidism. She was found to have evidence of osteoporosis by DEXA scan on 07/29/2021, T score -2.9 in the lumbar spine, -1.9 in the left femoral neck, and -1.2 in the right femoral neck. She has a history of emphysematous pyelonephritis. Her surgical history includes vaginal hysterectomy with unilateral oophorectomy in 2008. She did not recall ever having hot flashes or other indications of menopause. She has a history of smoking 1/2 pack of cigarettes daily for 30 years. INTERIM HISTORY: She has seen for scheduled visit. She indicates that she had her right shoulder surgery in January. She still has some pain in her shoulder and limited range of motion, but she is now managing the pain with Voltaren gel. She has had some weight gain on the tamoxifen, but she otherwise seems to be tolerating it well. She has good energy and she has normal activity. ECOG score is 0. She has good appetite. She says her A1c level has been high. She does not have fever, night sweats, or hot flashes. She always has sinus drainage. She has not had sore mouth or throat. She does not complain of cough, and she has not been having shortness of breath or chest pain. She currently has no GI or complaints. She has no other joint or bone pain. Recently she has had some headache. She has neuropathy in her feet, but that is stable. Medications: DULoxetine HCl 1 Capsule (of 60 mg) Capsule Delayed Release Particles Oral daily, DULoxetine HCl 1 Capsule (of 30 mg) Capsule Delayed Release Particles Oral daily, Levemir 42 Units (of 100 Units/mL) Subcutaneous b.i.d., Levo-T 1 Tablet (of .5 mcg) Oral daily, Losartan Potassium 1 Tablet (of 25 mg) Oral daily, Marinol 1 Capsule (of 2.5 mg) Oral b.i.d. PRN, NovoLOG 15 Units (of 100 Units/mL) Subcutaneous t.i.d., oxyCODONE HCl 1 Tablet (of 10 mg) Oral four times a day PRN, Polytrim 1 Drop(s) (of 18473-2.1 Units/mL - %) Solution Ophthalmic q 3 hours PRN, Protonix 1 Tablet (of 20 mg) Tablet, enteric coated Oral daily, traMADol HCl 1 - 2 Tablet (of 50 mg) Oral q 6 hours PRN Allergies: NORBERTO Inhibitors, NSAIDs, and Ozempic. Vital Signs: Performed on Aug 03, 2021 08:53 Height - 71.50 in Weight - 242 lbs (HIGH) BSA - 2.30 sq.m BMI - 33.28 (HIGH) Temperature - 96.4 F (LOW) Pulse - 104 /min (HIGH) Respiration - 18 /min BP - 146/81 mm(hg) (HIGH) O2 Sat - 97 % Pain - 6 Fatigue - 0 Physical Examination: Constitutional - She looks good generally, Eyes - Sclerae nonicteric. Conjunctivae clear, ENMT - No lesions noted in the oral cavity, Hematologic/Lymphatic - No cervical or clavicular adenopathy, Respiratory - Lungs are clear with good air movement bilaterally, Cardiovascular - Heart rhythm is regular. There is no murmur, gallop, or rub noted, Breasts - There are no chest wall lesions noted. There is no axillary adenopathy, Abdomen - Soft. Liver and spleen are not enlarged. There is no abdominal mass or ascites noted and there is no inguinal adenopathy, Extremities - No edema, Neurologic - No focal neurologic deficits noted. Lab/Imaging: Test performed on Apr 09, 2021 15:10 Glucose 374 mg/dL BUN 16 mg/dL Creatinine 0.70 mg/dL Cr Clearance (Est) 141.27 mL/min Sodium 133 mmol/L Potassium 4.0 mmol/L Chloride 104 mmol/L CO2 24 mmol/L Calcium 8.8 mg/dL Protein, Total 7.3 g/dL Albumin 3.4 g/dL Bilirubin, Total 0.5 mg/dL Alkaline Phosphatase 169 IU/L AST (SGOT) 36 IU/L ALT (SGPT) 42 IU/L WBC 11.9 10^9/L RBC 4.35 10^12/L HGB 13.8 g/dL HCT 41.2 % MCV 94.7 fl MCH 31.7 pg MCHC 33.5 g/dL RDW 11.9 % Platelet Count 241 10^9/L MPV 10.8 fL Lymphocytes 2.6 10^9/L Monocytes 0.6 10^9/L Eosinophils 0.1 10^9/L Basophils 0.1 10^9/L Manual Monocytes 5.4 % Manual Eosinophils 0.8 % Manual Basophils 0.7 % Problem List: 1. Grade 2 infiltrating ductal carcinoma of the left breast, Stage IB (T2, N1, M0), ER/MN positive and HER-2/kelsie positive, initially diagnosed in May 2019. 2. In June 2019 she suffered traumatic fracture of the right proximal humerus and subsequently of the left proximal humerus. Both were managed conservatively. 3. Hypertension. 4. Type II diabetes. 5. Peripheral neuropathy. 6. GERD. 7. Hypothyroidism. 8. Osteoporosis. 9. History of emphysematous pyelonephritis. Problems Addressed with this Encounter and Plan: Patient with grade 2 infiltrating ductal carcinoma of the left breast, Stage IB (T2, N1, M0), ER/MN positive and HER-2/kelsie positive. She underwent ultrasound-guided needle biopsy of left breast mass on 05/08/2019, and she underwent ultrasound-guided needle biopsy of left axillary lymph node on 05/22/2019. She completed 6 cycles of neoadjuvant TCH-P from 06/11/2019 thru 09/24/2019. Her 1st cycle was complicated by headache and dizziness, nausea/vomiting, diarrhea, and stomatitis. She sustained a fracture to the right proximal humerus when she passed out at home on day 3. She required hospitalization for IV hydration at day 6. Her symptoms subsequently improved, but she then sustanined a fracture to the proximal left humerus when she stepped in a hole and fell. Both fractures were managed conservatively. She was then able to tolerate her further chemotherapy with acceptable toxicity, though she continued to require frequent IV hydration. She continued systemic adjuvant therapy with cycle 1 of Herceptin/Perjeta on 10/19/2019. On 11/08/2019 she underwent left modified radical mastectomy and right simple mastectomy. Pathology on the left breast showed r a sclerotic mass measuring 1.4 x 2.0 x 0.7 cm, but there was no residual carcinoma in the breast and no involvement in 12 axillary lymph nodes, consistent with complete response to neoadjuvant therapy. The right breast pathology was benign. She then continued treatment with Herceptin/Perjeta at 3-week intervals. As of 06/12/2020 she completed her 11th and final cycle of treatment. In August 2020 she began adjuvant hormonal therapy with tamoxifen 20 mg daily. During her further follow-up she was diagnosed with COVID-19 virus infection, but she had an uneventful recovery. She underwent surgery on the right shoulder in January 2021. She continues to have some pain in her shoulder and she has limited range of motion, but she is able to manage the pain adequately with Voltaren gel. She has had some weight gain on the tamoxifen, but she has no other apparent side effects with it. Overall, she appears to be doing well clinically with no evidence of recurrence of the breast cancer. She continues adjuvant hormonal therapy with tamoxifen 20 mg daily. I will see her again in 6 months. Signed By: Preston Cuellar M.D. <<Signature on File>>
== END 2021-08-03 08:28 | disposition home or self-care (01) ==
LOC: ONCMED 08:28
PROVIDERS: PCP Family Medicine; Visit Provider Internal Medicine Medical Oncology
DX: C50.812 Malignant neoplasm of overlapping sites of left female breast (principal); Z17.0 Estrogen receptor positive status [ER+]; Z90.13 Acquired absence of bilateral breasts and nipples; I10 Essential (primary) hypertension; E11.42 Type 2 diabetes mellitus with diabetic polyneuropathy; K21.9 Gastro-esophageal reflux disease without esophagitis; E03.9 Hypothyroidism, unspecified; M81.0 Age-related osteoporosis without current pathological fracture; N12 Tubulo-interstitial nephritis, not specified as acute or chronic; Z79.899 Other long term (current) drug therapy; Z79.818 Long term (current) use of other agents affecting estrogen receptors and estrogen levels; Z92.21 Personal history of antineoplastic chemotherapy
CPT/HCPCS: 99214

== ENCOUNTER 2022-02-11 06:00 | Oncology outpatient (recurring) (ONCR) | payer BC, SELFPAY | END 2022-03-04 23:59 | disposition home or self-care (01) | LOC: ONCMED 02-15 08:48 | PROVIDERS: PCP Family Medicine; Visit Provider Internal Medicine Medical Oncology | DX: C50.812 Malignant neoplasm of overlapping sites of left female breast (principal); Z17.0 Estrogen receptor positive status [ER+]; Z90.13 Acquired absence of bilateral breasts and nipples; M81.0 Age-related osteoporosis without current pathological fracture; G62.9 Polyneuropathy, unspecified; Z79.811 Long term (current) use of aromatase inhibitors; Z79.891 Long term (current) use of opiate analgesic; Z79.899 Other long term (current) drug therapy; Z92.21 Personal history of antineoplastic chemotherapy ==

== ENCOUNTER 2022-08-24 15:29 | Oncology outpatient (recurring) (ONCR) | payer SELFPAY | END 2022-09-04 23:59 | disposition home or self-care (01) | LOC: ONCMED 15:29 | PROVIDERS: PCP Family Medicine; Visit Provider Internal Medicine Medical Oncology | DX: C50.812 Malignant neoplasm of overlapping sites of left female breast (principal); Z17.0 Estrogen receptor positive status [ER+] ==